=== PATIENT | female | born 1935 | race Caucasian/White ===

== ENCOUNTER 2018-09-25 09:30 | Inpatient (IN) ==
--- NOTE | 2018-09-25 10:09 | ED ---
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 They state that the patient was admitted last week to [facility] and diagnosed with Klebsiella ESBL UTI. She was discharged home 2 days ago on . According to the patient's and grandson, the patient's mental status has been significantly depressed since being discharged. Prior to being admitted the patient showed signs of dementia, however was talkative, able to ambulate, and had a normal routine. Since being discharged patient has not been talking, not been ambulating, not acting like her usual self. Patient is unable to provide any history given her mental status. She was apparently discharged home, and home health has been administering IV InVance for her UTI. She has not been vomiting. She has been coughing, however it has been nonproductive. Related Data Home Medications Medication Instructions Recorded Confirmed allopurinol 300 mg PO DAILY 09/25/18 09/25/18 aspirin [Aspir-81] 81 mg PO DAILY 09/25/18 09/25/18 carvedilol 12.5 mg PO BID 09/25/18 09/25/18 clopidogrel [Plavix] 75 mg PO DAILY 09/25/18 09/25/18 ferrous sulfate 325 mg PO DAILY 09/25/18 09/25/18 furosemide 40 mg PO DAILY 09/25/18 09/25/18 insulin glargine [Lantus U-100 15 unit SUBCUT DAILY 09/25/18 09/25/18 Insulin] levothyroxine 50 mcg PO DAILY 09/25/18 09/25/18 lovastatin 20 mg PO DAILY 09/25/18 09/25/18 potassium chloride 10 meq PO DAILY 09/25/18 09/25/18 sucralfate 1 g PO ACHS 09/25/18 09/25/18 Allergies Allergy/AdvReac Type Severity Reaction Status Date / Time No Known Allergies Allergy Verified 09/25/18 09:53 Review of Systems ROS: all other systems reviewed are negative [facility] Medical History Medical History Dementia (Acute) Diabetes (Acute) Gout (Acute) Hypercholesteremia (Acute) Hypertension (Acute) Hypothyroid (Acute) Medical history unknown (Acute) Surgical history unknown (Acute) Social History Social History Substance History: No History of Abuse Second Hand Smoke Exposure: No Smoking Status: Never smoker How Often Do You Have a Drink Containing Alcohol: 2 to 4 times a month Recent Travel in [facility] within the Last 8 Weeks: No Recent Out of Country Travel within the Last 8 Weeks: No Immunization History Tetanus Immunization: Unsure Exam Narrative Exam Narrative: GENERAL: Well-developed, elderly appearing female, awake, does not respond to verbal stimuli, withdraws to painful stimuli. SKIN: Focused skin assessment warm/dry. Stage II sacral decubitus ulcer with small amount of bleeding, no purulent drainage HEAD: Atraumatic. Normocephalic. EYES: Pupils equal and round. No scleral icterus. No injection or drainage. ENT: No nasal bleeding or discharge. Mucous membranes pink and dry. NECK: Trachea midline. No JVD. CARDIOVASCULAR: Regular rate and rhythm. No murmur appreciated. RESPIRATORY: No accessory muscle use. Coarse breath sounds bilaterally. GASTROINTESTINAL: Abdomen soft, non-tender, nondistended. MUSCULOSKELETAL: No obvious deformities. No clubbing. No cyanosis. Significant bilateral upper and lower extremity pitting edema. NEUROLOGICAL: Awake. Keeps eyes closed. Not responsive to verbal stimuli. Does not converse. Does not follow commands. Withdraws all extremities to painful stimuli. PSYCHIATRIC: Unable to assess. Course Initial Documented Vital Signs Temperature 96.5 F L 09/25/18 09:32 Pulse Rate 69 09/25/18 09:32 Respiratory Rate 18 09/25/18 09:32 Blood Pressure 115/56 L 09/25/18 09:32 Pulse Oximetry 94 L 09/25/18 09:32 Last Documented Vital Signs Temperature 94.7 F L 09/25/18 11:00 Pulse Rate 67 09/25/18 09:58 Respiratory Rate 18 09/25/18 09:58 Blood Pressure 148/83 H 09/25/18 09:58 Pulse Oximetry 97 09/25/18 10:15 Medical Decision Making MDM Narrative Medical decision making narrative: Patient has a rectal temp of 94.7 F. Warming blankets were applied. Labs reviewed. Patient has renal insufficiency. Unknown baseline. CMP also shows metabolic acidosis. UA suggestive of UTI. Lactic acid is 1.4. CT head: CONCLUSION:1. Atrophy and chronic small vessel ischemic change.2. No evidence of acute hemorrhage or infarction. Chest x-ray: CONCLUSION: 1. Cardiomegaly with streaky perihilar and bibasilar opacities of unknown chronicity. This may represent scarring.2. Both costophrenic angles appear mildly blunted which could indicate small effusions Several attempts were made to obtain hospital records from [facility]. Apparently they are attempting to fax this information to us. The patient's and grandson were made aware of all findings. Patient has metabolic acidosis, metabolic encephalopathy, renal insufficiency, and a UTI. Her last dose of Invanz was yesterday morning at 7 AM. Patient will be admitted for further treatment and evaluation. She will be given a dose of Invanz here. Awaiting culture and sensitivity reports from [facility]. Case discussed with hospitalist Dr. Rascon who will admit the patient to his service. Medical Screen Exam Complete: Yes Emergency Medical Condition: Yes Differential Diagnosis Differential Diagnosis: Sepsis, pneumonia, UTI, metabolic encephalopathy, intracranial abnormality, metabolic abnormality Lab Data Result diagrams: 09/25/18 10:18 09/25/18 10:18 Lab Results 09/25/18 09/25/18 09/25/18 Range/Units 10:18 10:18 10:18 WBC 10.5 (4.0-11.0) th/mm3 RBC 3.25 L (4.00-5.30) mil/mm3 Hgb 11.2 L (11.6-15.3) gm/dL Hct 34.0 L (35.0-46.0) % MCV 104.4 H (80.0-100.0) fL MCH 34.4 H (27.0-34.0) pg MCHC 32.9 (32.0-36.0) % RDW 17.4 H (11.6-17.2) % Plt Count 138 L (150-450) th/mm3 MPV 7.8 (7.0-11.0) fL Neut % (Auto) 63.6 (16.0-70.0) % Lymph % (Auto) 27.2 (9.0-44.0) % Ellis % (Auto) 5.2 (0.0-8.0) % Eos % (Auto) 3.1 (0.0-4.0) % Baso % (Auto) 0.9 (0.0-2.0) % Neut # (Auto) 6.7 (1.8-7.7) th/mm3 Lymph # (Auto) 2.9 (1.0-4.8) th/mm3 Ellis # (Auto) 0.5 (0.0-0.9) th/mm3 Eos # (Auto) 0.3 (0.0-0.4) th/mm3 Baso # (Auto) 0.1 (0.0-0.2) th/mm3 WBC Differential . Differential Comment Auto diff final PT (9.8-11.6) sec INR Ratio APTT (23.4-31.7) sec Sodium 138 (136-145) meq/L Potassium 5.6 H (3.5-5.1) meq/L Chloride 114 H (98-107) meq/L Carbon Dioxide 15.6 L (21.0-32.0) meq/L Anion Gap 8 (5-15) meq/L BUN 74 H (7-18) mg/dL Creatinine 2.28 H (0.50-1.00) mg/dL Estimated GFR 21 L (>89) mL/min Random Glucose 133 H (74-106) mg/dL Lactic Acid 1.4 (0.4-2.0) mmol/L Calcium 8.1 L (8.5-10.1) mg/dL Magnesium 2.3 (1.5-2.5) mg/dL Total Bilirubin 0.5 (0.2-1.0) mg/dL AST 35 (15-37) U/L ALT 14 (10-53) U/L Alkaline Phosphatase 152 H (45-117) U/L Ammonia (11-32) mcmol/L Total Creatine Kinase 118 (26-192) U/L CK-MB (CK-2) 1.3 (0.5-3.6) ng/mL Troponin I Less than 0.02 L (0.02-0.05) ng/mL B-Natriuretic Peptide (0-100) pg/mL Total Protein 5.6 L (6.4-8.2) g/dL Albumin 1.9 L (3.4-5.0) g/dL Lipase 61 L (73-393) U/L TSH 4.330 H (0.358-3.740) uIU/mL Urine Color (Yellw/Straw) Urine Clarity (Clear) Urine pH (5.0-8.5) Ur Specific [place] (1.002-1.035) Urine Protein (Neg-Trace) mg/dL Urine Glucose (UA) (Negative) mg/dL Urine Ketones (Negative) mg/dL Urine Occult Blood (Negative) Urine Nitrate (Negative) Urine Bilirubin (Negative) Urine Urobilinogen (Less than 2) mg/dL Ur Leukocyte Esterase (Negative) Urine RBC (0-3) /hpf Urine WBC (0-5) /hpf Urine WBC Clumps (None) Ur Squamous Epith Cells (0-5) /hpf Amorphous Sediment (None) /hpf Urine Bacteria (None) /hpf Hyaline Casts (0-3) /lpf Urine Mucus (Occasional) /lpf Micro UA Comment Ur Microscopic Review Urine Culture Comments 09/25/18 09/25/18 09/25/18 Range/Units 10:18 10:18 10:40 WBC (4.0-11.0) th/mm3 RBC (4.00-5.30) mil/mm3 Hgb (11.6-15.3) gm/dL Hct (35.0-46.0) % MCV (80.0-100.0) fL MCH (27.0-34.0) pg MCHC (32.0-36.0) % RDW (11.6-17.2) % Plt Count (150-450) th/mm3 MPV (7.0-11.0) fL Neut % (Auto) (16.0-70.0) % Lymph % (Auto) (9.0-44.0) % Ellis % (Auto) (0.0-8.0) % Eos % (Auto) (0.0-4.0) % Baso % (Auto) (0.0-2.0) % Neut # (Auto) (1.8-7.7) th/mm3 Lymph # (Auto) (1.0-4.8) th/mm3 Ellis # (Auto) (0.0-0.9) th/mm3 Eos # (Auto) (0.0-0.4) th/mm3 Baso # (Auto) (0.0-0.2) th/mm3 WBC Differential Differential Comment PT (9.8-11.6) sec INR Ratio APTT (23.4-31.7) sec Sodium (136-145) meq/L Potassium (3.5-5.1) meq/L Chloride (98-107) meq/L Carbon Dioxide (21.0-32.0) meq/L Anion Gap (5-15) meq/L BUN (7-18) mg/dL Creatinine (0.50-1.00) mg/dL Estimated GFR (>89) mL/min Random Glucose (74-106) mg/dL Lactic Acid (0.4-2.0) mmol/L Calcium (8.5-10.1) mg/dL Magnesium (1.5-2.5) mg/dL Total Bilirubin (0.2-1.0) mg/dL AST (15-37) U/L ALT (10-53) U/L Alkaline Phosphatase (45-117) U/L Ammonia 23 (11-32) mcmol/L Total Creatine Kinase (26-192) U/L CK-MB (CK-2) (0.5-3.6) ng/mL Troponin I (0.02-0.05) ng/mL B-Natriuretic Peptide 246 H (0-100) pg/mL Total Protein (6.4-8.2) g/dL Albumin (3.4-5.0) g/dL Lipase (73-393) U/L TSH (0.358-3.740) uIU/mL Urine Color Yellow (Yellw/Straw) Urine Clarity Cloudy H (Clear) Urine pH 5.0 (5.0-8.5) Ur Specific [place] 1.012 (1.002-1.035) Urine Protein 100 H (Neg-Trace) mg/dL Urine Glucose (UA) 50 (Negative) mg/dL Urine Ketones Negative (Negative) mg/dL Urine Occult Blood Moderate H (Negative) Urine Nitrate Negative (Negative) Urine Bilirubin Negative (Negative) Urine Urobilinogen Less than 2 (Less than 2) mg/dL Ur Leukocyte Esterase Moderate H (Negative) Urine RBC 30 H (0-3) /hpf Urine WBC 55 H (0-5) /hpf Urine WBC Clumps Few H (None) Ur Squamous Epith Cells 1 (0-5) /hpf Amorphous Sediment Many H (None) /hpf Urine Bacteria Moderate H (None) /hpf Hyaline Casts 19 (0-3) /lpf Urine Mucus Few H (Occasional) /lpf Micro UA Comment Cath-culture ind Ur Microscopic Review Not Reportable Urine Culture Comments Cath-cult indicated 09/25/18 Range/Units 11:20 WBC (4.0-11.0) th/mm3 RBC (4.00-5.30) mil/mm3 Hgb (11.6-15.3) gm/dL Hct (35.0-46.0) % MCV (80.0-100.0) fL MCH (27.0-34.0) pg MCHC (32.0-36.0) % RDW (11.6-17.2) % Plt Count (150-450) th/mm3 MPV (7.0-11.0) fL Neut % (Auto) (16.0-70.0) % Lymph % (Auto) (9.0-44.0) % Ellis % (Auto) (0.0-8.0) % Eos % (Auto) (0.0-4.0) % Baso % (Auto) (0.0-2.0) % Neut # (Auto) (1.8-7.7) th/mm3 Lymph # (Auto) (1.0-4.8) th/mm3 Ellis # (Auto) (0.0-0.9) th/mm3 Eos # (Auto) (0.0-0.4) th/mm3 Baso # (Auto) (0.0-0.2) th/mm3 WBC Differential Differential Comment PT 12.4 H (9.8-11.6) sec INR 1.2 Ratio APTT 40.6 H (23.4-31.7) sec Sodium (136-145) meq/L Potassium (3.5-5.1) meq/L Chloride (98-107) meq/L Carbon Dioxide (21.0-32.0) meq/L Anion Gap (5-15) meq/L BUN (7-18) mg/dL Creatinine (0.50-1.00) mg/dL Estimated GFR (>89) mL/min Random Glucose (74-106) mg/dL Lactic Acid (0.4-2.0) mmol/L Calcium (8.5-10.1) mg/dL Magnesium (1.5-2.5) mg/dL Total Bilirubin (0.2-1.0) mg/dL AST (15-37) U/L ALT (10-53) U/L Alkaline Phosphatase (45-117) U/L Ammonia (11-32) mcmol/L Total Creatine Kinase (26-192) U/L CK-MB (CK-2) (0.5-3.6) ng/mL Troponin I (0.02-0.05) ng/mL B-Natriuretic Peptide (0-100) pg/mL Total Protein (6.4-8.2) g/dL Albumin (3.4-5.0) g/dL Lipase (73-393) U/L TSH (0.358-3.740) uIU/mL Urine Color (Yellw/Straw) Urine Clarity (Clear) Urine pH (5.0-8.5) Ur Specific [place] (1.002-1.035) Urine Protein (Neg-Trace) mg/dL Urine Glucose (UA) (Negative) mg/dL Urine Ketones (Negative) mg/dL Urine Occult Blood (Negative) Urine Nitrate (Negative) Urine Bilirubin (Negative) Urine Urobilinogen (Less than 2) mg/dL Ur Leukocyte Esterase (Negative) Urine RBC (0-3) /hpf Urine WBC (0-5) /hpf Urine WBC Clumps (None) Ur Squamous Epith Cells (0-5) /hpf Amorphous Sediment (None) /hpf Urine Bacteria (None) /hpf Hyaline Casts (0-3) /lpf Urine Mucus (Occasional) /lpf Micro UA Comment Ur Microscopic Review Urine Culture Comments Imaging Data Radiologist's impression: Chest X-Ray 09/25/18 10:02 CONCLUSION: 1. Cardiomegaly with streaky perihilar and bibasilar opacities of unknown chronicity. This may represent scarring. 2. Both costophrenic angles appear mildly blunted which could indicate small effusions. Head CT 09/25/18 10:02 CONCLUSION: 1. Atrophy and chronic small vessel ischemic change. 2. No evidence of acute hemorrhage or infarction. . Discharge Plan Discharge Disposition Patient Disposition: ED Admit(ED Internal Use Only) Discharge Condition Condition: Stable Discharge Details Diagnosis: Metabolic encephalopathy, Renal insufficiency, UTI (urinary tract infection) Physicians Team ED Provider: Tim Fuller Rxs /Orders / Referrals /Forms Prescriptions: No Action furosemide 40 mg Tablet 40 mg PO DAILY RF: 0 carvedilol 12.5 mg Tablet 12.5 mg PO BID RF: 0 insulin glargine [Lantus U-100 Insulin] 100 unit/mL Solution 15 unit SUBCUT DAILY RF: 0 sucralfate 1 gram Tablet 1 g PO ACHS RF: 0 potassium chloride 10 mEq Tablet Extended Release 10 meq PO DAILY RF: 0 clopidogrel [Plavix] 75 mg Tablet 75 mg PO DAILY RF: 0 aspirin [Aspir-81] 81 mg Tablet,Delayed Release (Dr/Ec) 81 mg PO DAILY RF: 0 levothyroxine 50 mcg Tablet 50 mcg PO DAILY RF: 0 ferrous sulfate 325 mg (65 mg iron) Tablet 325 mg PO DAILY RF: 0 allopurinol 300 mg Tablet 300 mg PO DAILY RF: 0 lovastatin 20 mg Tablet 20 mg PO DAILY RF: 0 Status ED Status: With Doctor
[2018-09-25 10:39] LABS: Baso # (Auto) 0.1 th/mm3 (0.0-0.2); Baso % (Auto) 0.9 % (0.0-2.0); Eos # (Auto) 0.3 th/mm3 (0.0-0.4); Eos % (Auto) 3.1 % (0.0-4.0); Hemoglobin 11.2 gm/dL (11.6-15.3); Lymph # (Auto) 2.9 th/mm3 (1.0-4.8); Lymph % (Auto) 27.2 % (9.0-44.0); Mean Corpuscular HGB Conc 32.9 % (32.0-36.0); Mean Corpuscular Hemoglobin 34.4 pg (27.0-34.0); Mean Corpuscular Volume 104.4 fL (80.0-100.0); Mean Platelet Volume 7.8 fL (7.0-11.0); Mono # (Auto) 0.5 th/mm3 (0.0-0.9); Mono % (Auto) 5.2 % (0.0-8.0); Neut # (Auto) 6.7 th/mm3 (1.8-7.7); Neut % (Auto) 63.6 % (16.0-70.0); Platelet Count 138 th/mm3 (150-450); Red Blood Count 3.25 mil/mm3 (4.00-5.30); Red Cell Distribution Width 17.4 % (11.6-17.2); White Blood Count 10.5 th/mm3 (4.0-11.0)
[2018-09-25 11:00] LABS: Albumin 1.9 g/dL (3.4-5.0); Anion Gap 8 meq/L (5-15); Aspartate Aminotransferase 35 U/L (15-37); Blood Urea Nitrogen 74 mg/dL (7-18); Calcium 8.1 mg/dL (8.5-10.1); Carbon Dioxide 15.6 meq/L (21.0-32.0); Chloride 114 meq/L (98-107); Glomerular Filtration Rate 21 mL/min (>89); Glucose,Random 133 mg/dL (74-106); Lipase 61 U/L (73-393); Magnesium 2.3 mg/dL (1.5-2.5); Potassium 5.6 meq/L (3.5-5.1); Sodium 138 meq/L (136-145)
[2018-09-25 11:05] LABS: Amorphous Sediment,Urine Many /hpf; Bacteria,Urine Moderate /hpf; Bilirubin,Urine Negative (Negative); Clarity,Urine Cloudy (Clear); Color,Urine Yellow (Yellw/Straw); Glucose,Urine (UA) 50 mg/dL (Negative); Hyaline Casts,Urine 19 /lpf (0-3); Leukocyte Esterase,Urine Moderate (Negative); Mucus,Urine Few /lpf (Occasional); Nitrite,Urine Negative (Negative); Specific Gravity,Urine 1.012 (1.002-1.035); Squamous Epithelial Cell,Urine 1 /hpf (0-5)
[2018-09-25 11:09] LABS: Alanine Aminotransferase 14 U/L (10-53); Alkaline Phosphatase 152 U/L (45-117); Creatine Kinase 118 U/L (26-192); Total Protein 5.6 g/dL (6.4-8.2)
--- NOTE | 2018-09-25 11:13 | CT ---
EXAM DATE: 09/25/2018 11:10 AM EST AGE/SEX: 83 years / Female INDICATIONS: Altered mental status. CLINICAL DATA: This is the patient's initial encounter. Patient reports that signs and symptoms have been present for 1 day and indicates a pain score of 0/10. MEDICAL/SURGICAL HISTORY: Dementia. Diabetes. Hypertension. None. RADIATION DOSE: 56.77 CTDI (mGy) COMPARISON: No prior exams available for comparison. TECHNIQUE: CT of the head without contrast. Using automated exposure control and adjustment of the mA and/or kV according to patient size, radiation dose was kept as low as reasonably achievable to ob tain optimal diagnostic quality images. DICOM format image data is available electronically for revi ew and comparison. FINDINGS: Cerebrum: The ventricles are normal for age with diffuse mild to moderate atrophic change. Extensive chronic small vessel ischemic changes are also noted. No evidence of midline shift, mass lesion, hem orrhage or acute infarction. No extraaxial fluid collections are seen. Posterior Fossa: The cerebellum and brainstem are intact. The 4th ventricle is midline. The cerebe llopontine angle is unremarkable. Extracranial: The visualized portion of the orbits is intact. There is opacification of several righ t ethmoidal air cells. Skull: The calvaria is intact. No evidence of skull fracture. CONCLUSION: 1. Atrophy and chronic small vessel ischemic change. 2. No evidence of acute hemorrhage or infarction. . Electronically signed by: Rivera Hardin MD 09/25/2018 11:12 AM EST
[2018-09-25] MEDS ORDERED: Sod Chloride 0.9% Inj 1,000 ML IV.CONT SCH (11:15)
[2018-09-25 11:37] LABS: Creatine Kinase MB 1.3 ng/mL (0.5-3.6)
[2018-09-25] MEDS ORDERED: Sodium Chlor 0.9% Inj 500 ML IV.SIG SCH (12:00)
[2018-09-25 12:13] LABS: Activated Partial Thrombo Time 40.6 sec (23.4-31.7); INR 1.2 Ratio; Prothrombin Time 12.4 sec (9.8-11.6)
--- NOTE | 2018-09-25 12:21 | XR ---
EXAM DATE: 09/25/2018 12:13 PM EST AGE/SEX: 83 years / Female INDICATIONS: Fever, congestion. Altered mental status. CLINICAL DATA: This is the patient's initial encounter. Patient reports that signs and symptoms have been present for 1 day and indicates a pain score of Nonresponsive. MEDICAL/SURGICAL HISTORY: Non-responsive. Non-responsive. COMPARISON: No prior exams available for comparison. FINDINGS: A single AP erect portable view of the chest was obtained and demonstrates a right subclavian AV sequ ential transvenous pacer placed. There is mild cardiomegaly and atherosclerotic changes in the aorta with dilatation calcification. Streaky perihilar and bibasilar opacities are present. Both costophren ic angles appear mildly blunted. Scoliosis is noted in the thoracic spine. There are degenerative paulino nges in both shoulders. CONCLUSION: 1. Cardiomegaly with streaky perihilar and bibasilar opacities of unknown chronicity. This may repre sent scarring. 2. Both costophrenic angles appear mildly blunted which could indicate small effusions. Electronically signed by: Rivera Hardin MD 09/25/2018 12:20 PM EST
[2018-09-25] MEDS: Carvedilol 12.5 MG Tablet PO SCH ×2 (14:51→21:00)
[2018-09-25] MEDS: amLODIPine 5 MG Tablet PO SCH (14:52)
[2018-09-25] MEDS ORDERED: hydrALAZINE HCl Inj 20 MG/ML Vial IV.PUSH PRN (14:58)
[2018-09-25] MEDS ORDERED: hydrALAZINE HCl Inj 20 MG/ML Vial IV.PUSH ONE (15:00)
--- NOTE | 2018-09-25 18:42 | P.HPIM ---
History of Present Illness Primary Care Physician: Rylan Mcknight History of Present Illness: This patient is an 83-year-old female with a diagnosis of hypertension, CHF unknown ejection fraction, hypothyroidism, insulin-dependent diabetes. The patient was recently discharged from [facility] with ESBL Klebsiella UTI as per some documentation that was provided by the patient's . During the hospitalization the patient was admitted for acute encephalopathy which was thought to be due to to the UTI. The patient's provided a prescription that was given to the patient for Invanz that the patient was to receive at home for her urinary tract infection. The patient will receive 1 day of the IV antibiotic while at home and her symptoms of encephalopathy and weakness got worse and she was brought into the emergency department for evaluation. She denies any fevers or chills. Due to the patient's worsening mental status she was brought into the ED. She has also been having a cough that is nonproductive as per the patient's . In the emergency department a Polanco catheter was placed which shows cloudy urine draining. Past medical history hypertension, CHF unknown ejection fraction, insulin- dependent diabetes, hypothyroidism Past surgical history status post pacemaker placement Social history the patient is a history of tobacco smoking, denies any history of alcohol use or drug use. Family history noncontributory Inpatient Certification: I certify that the inpatient services were ordered in accordance with Medicare regulations governing the order. This includes certification that hospital inpatient services are reasonable and necessary and in the case of services not specified as inpatient-only under 42 CFR 419.22(n), that they are appropriately provided as inpatient services in accordance to with the 2-midnight benchmark under 43 CFR 412.3(e) Estimated Total Length of Stay (Days): 3 Plans for Post Hospital Care: Home Review of Systems All other systems reviewed negative except as stated in HPI PMFSH - History History Provided By: Family Member - Medical History Medical History: Medical History (Last Updated 09/25/18 @ 09:58 by Aileen Richter) Dementia Diabetes Gout Hypercholesteremia Hypertension Hypothyroid Medical history unknown Surgical history unknown - Tobacco History Second Hand Smoke Exposure: No Smoking Status: Never smoker - Alcohol History How Often Do You Have a Drink Containing Alcohol: 2 to 4 times a month - Substance Use History Substance History: No History of Abuse - Travel History Recent Travel in the [place] Within the Last 8 Weeks: No Recent Travel Out of the Country Within the Last 8 Weeks: No - Immunization History Tetanus Immunization: Unsure Medications and Allergies Active Medications: Active Medications Amlodipine Besylate (Norvasc) 5 mg PO DAILY [facility] Last Admin: 09/25/18 14:52 Dose: Not Given Aspirin (Aspirin Chew) 81 mg PO DAILY [facility] Atorvastatin Calcium (Lipitor) 20 mg PO HS [facility] Carvedilol (Coreg) 12.5 mg PO BID [facility] Last Admin: 09/25/18 14:51 Dose: Not Given Clopidogrel Bisulfate (Plavix) 75 mg PO DAILY [facility] Hydralazine HCl (Apresoline Inj) 10 mg IV.PUSH Q4H PRN PRN Reason: BLOOD PRESSURE MANAGEMENT Sodium Chloride (Ns Inj) 1,000 mls @ 125 mls/hr IV.CONT .Q8H [facility] Stop: 09/25/18 19:14 Last Infusion: 09/25/18 17:39 Dose: Infused Ertapenem 500 mg/ Sodium (Chloride) 100 mls @ 200 mls/hr IV.SIG Q24H [facility] Levothyroxine Sodium (Synthroid) 50 mcg PO DAILY@0600 [facility] Allergies Allergy/AdvReac Type Severity Reaction Status Date / Time No Known Allergies Allergy Verified 09/25/18 09:53 Home Medications Medication Instructions Recorded Confirmed Type allopurinol 300 mg PO DAILY 09/25/18 09/25/18 History aspirin [Aspir-81] 81 mg PO DAILY 09/25/18 09/25/18 History carvedilol 12.5 mg PO BID 09/25/18 09/25/18 History clopidogrel [Plavix] 75 mg PO DAILY 09/25/18 09/25/18 History ferrous sulfate 325 mg PO DAILY 09/25/18 09/25/18 History furosemide 40 mg PO DAILY 09/25/18 09/25/18 History insulin glargine [Lantus U-100 15 unit SUBCUT DAILY 09/25/18 09/25/18 History Insulin] levothyroxine 50 mcg PO DAILY 09/25/18 09/25/18 History lovastatin 20 mg PO DAILY 09/25/18 09/25/18 History potassium chloride 10 meq PO DAILY 09/25/18 09/25/18 History sucralfate 1 g PO ACHS 09/25/18 09/25/18 History Exam Vital signs: Vital Signs 09/25/18 09:32 09/25/18 09:58 09/25/18 10:15 Temperature 96.5 F L Pulse Rate 69 67 Respiratory Rate 18 18 Blood Pressure 115/56 L 148/83 H Pulse Oximetry 94 L 94 L 97 09/25/18 11:00 09/25/18 13:59 09/25/18 15:51 Temperature 94.7 F L Pulse Rate 71 68 Respiratory Rate 14 17 Blood Pressure 182/76 H 110/48 L Pulse Oximetry 97 97 09/25/18 17:36 Temperature Pulse Rate 74 Respiratory Rate 14 Blood Pressure 109/51 L Pulse Oximetry 98 Intake & Output 09/24/18 09/25/18 09/25/18 18:59 06:59 18:59 Intake Total 1600 / 1600 Balance 1600 / 1600 Weight 77.111 kg Intake: IV 1600 / 1600 NS Inj 1,000 ML @ 125 mls/hr IV 1000 / 1000 .CONT .Q8H [facility] Rx#:[id number] INVanz Inj 1,000 MG In NS Inj 100 / 100 100 ML @ 200 mls/hr IV.SIG ONCE ONE Rx#:[id number] NS Inj 500 ML @ 1000 mls/hr IV. 500 / 500 SIG BOLUS [facility] Rx#:[id number] Narrative: General patient is lethargic. Opens eyes to verbal questions. HEENT atraumatic, normocephalic. Extraocular movements are intact. Cardiovascular S1-S2 audible, RRR, no murmurs rubs or gallops Respiratory bibasilar crackles. Abdomen soft, nontender, nondistended, normal bowel sounds Extremities 2+ pitting edema bilateral lower extremity up to the shins. Bilateral upper extremity pitting edema also noted. Neuro patient is currently alert and oriented x2 to person and place. She is not following commands completely. Results - Labs CBC & Chem 7: 09/25/18 10:18 09/25/18 10:18 Labs: Short CBC 09/25/18 Range/Units 10:18 WBC 10.5 (4.0-11.0) th/mm3 Hgb 11.2 L (11.6-15.3) gm/dL Hct 34.0 L (35.0-46.0) % Plt Count 138 L (150-450) th/mm3 BMP 09/25/18 10:18 Sodium 138 Potassium 5.6 H Chloride 114 H Carbon Dioxide 15.6 L BUN 74 H Creatinine 2.28 H Calcium 8.1 L Cardiac Enzymes 09/25/18 Range/Units 10:18 Total Creatine Kinase 118 (26-192) U/L CK-MB (CK-2) 1.3 (0.5-3.6) ng/mL Troponin I Less than 0.02 L (0.02-0.05) ng/mL Liver Function 09/25/18 Range/Units 10:18 Total Bilirubin 0.5 (0.2-1.0) mg/dL AST 35 (15-37) U/L ALT 14 (10-53) U/L Alkaline Phosphatase 152 H (45-117) U/L Albumin 1.9 L (3.4-5.0) g/dL Urine 09/25/18 Range/Units 10:40 Urine Color Yellow (Yellw/Straw) Urine Clarity Cloudy H (Clear) Urine pH 5.0 (5.0-8.5) Ur Specific [place] 1.012 (1.002-1.035) Urine Protein 100 H (Neg-Trace) mg/dL Urine Glucose (UA) 50 (Negative) mg/dL - Imaging Impressions Chest X-Ray 09/25/18 10:02 CONCLUSION: 1. Cardiomegaly with streaky perihilar and bibasilar opacities of unknown chronicity. This may represent scarring. 2. Both costophrenic angles appear mildly blunted which could indicate small effusions. Head CT 09/25/18 10:02 CONCLUSION: 1. Atrophy and chronic small vessel ischemic change. 2. No evidence of acute hemorrhage or infarction. . Caprini VTE Risk Assessment Caprini VTE Risk Assessment: Moderate/High Risk (score >= 2) (Patient thrombocytopenic, continue with SCDs) Caprini Risk Assessment Model: Point Value = 1 Point Value = 2 Point Value = 3 Point Value = 5 Age 41-60 Minor surgery BMI > 25 kg/m2 Swollen legs Varicose veins or History of unexplained or recurrent spontaneous Oral contraceptives or hormone replacement Sepsis (< 1 month) Serious lung disease, including pneumonia (< 1 month) Abnormal pulmonary function Acute myocardial infarction Congestive heart failure (< 1 month) History of inflammatory bowel disease Medical patient at bed rest Age 61-74 Arthroscopic surgery Major open surgery (> 45 min) Laparoscopic surgery (> 45 min) Malignancy Confined to bed (> 72 hours) Immobilizing plaster cast Central venous access Age >= 75 History of VTE Family history of VTE Factor V Leiden Prothrombin [id number] Lupus anticoagulant Anticardiolipin antibodies Elevated serum homocysteine Heparin-induced thrombocytopenia Other congenital or acquired thrombophilia Stroke (< 1 month) Elective arthroplasty Hip, pelvis, or leg fracture Acute spinal cord injury (< 1 month) Prophylaxis Regimen: Total Risk Factor Score Risk Level Prophylaxis Regimen 0-1 Low Early ambulation 2 Moderate Order ONE of the following: *Sequential Compression Device (SCD) *Heparin 5000 units SQ BID 3-4 Higher Order ONE of the following medications: *Heparin 5000 units SQ TID *Enoxaparin/Lovenox 40 mg SQ daily (WT < 150 kg, CrCl > 30 mL/min) *Enoxaparin/Lovenox 30 mg SQ daily (WT < 150 kg, CrCl > 10-29 mL/min) *Enoxaparin/Lovenox 30 mg SQ BID (WT < 150 kg, CrCl > 30 mL/min) AND/OR *Sequential Compression Device (SCD) 5 or more Highest Order ONE of the following medications: *Heparin 5000 units SQ TID (Preferred with Epidurals) *Enoxaparin/Lovenox 40 mg SQ daily (WT < 150 kg, CrCl > 30 mL/min) *Enoxaparin/Lovenox 30 mg SQ daily (WT < 150 kg, CrCl > 10-29 mL/min) *Enoxaparin/Lovenox 30 mg SQ BID (WT < 150 kg, CrCl > 30 mL/min) AND *Sequential Compression Device (SCD) Assessment and Plan - Plan This patient is an 83-year-old female with a diagnosis of hypertension, CHF unknown ejection fraction, hypothyroidism, insulin-dependent diabetes. The patient was recently discharged from [facility] with ESBL Klebsiella UTI as per some documentation that was provided by the patient's . During the hospitalization the patient was admitted for acute encephalopathy which was thought to be due to to the UTI. The patient's provided a prescription that was given to the patient for Invanz that the patient was to receive at home for her urinary tract infection. The patient will receive 1 day of the IV antibiotic while at home and her symptoms of encephalopathy and weakness got worse and she was brought into the emergency department for evaluation. She denies any fevers or chills. 1. Acute encephalopathy likely secondary to urinary tract infection 2. Sepsis secondary to #1 The patient presented with a low temperature, recently she was treated for ESBL Klebsiella UTI. Urinalysis is positive, Polanco catheter shows cloudy urine. This is likely the source of the patient's current infection. Invanz will be started, records from [facility] are currently pending. The patient received IV fluids in the emergency department however on my physical examination the patient has significant bilateral lower extremity pitting edema well as bilateral upper pitting edema. The patient does have an albumin of 1.9 which could be contributing to the patient's edema. IV fluids will not be continued for tonight. The patient is now able to answer some of my questions however still appears drowsy. She is alert and oriented x2 to person and place. Blood cultures have been drawn and will be followed up. Follow-up urine culture. 3. Acute kidney injury likely secondary to sepsis 4. Hyperkalemia likely secondary to acute kidney injury 5. Non-anion gap metabolic acidosis likely secondary to acute kidney injury Patient has an elevated serum creatinine of 2.28. Baseline serum creatinine unknown. We will continue to monitor the patient's serum creatinine and kidney function. If no significant improvement by tomorrow nephrology will be consulted. Repeat potassium level will be ordered for tonight. Patient failed swallow evaluation at bedside. We will give gentle fluid hydration for today. Official swallow evaluation pending. 6. Sacral ulcer Patient is a small sacral ulcer. Wound care nurse will be consulted to evaluate the patient. 7. Hypertension Patient has systolic blood pressure in the 180s in the emergency department. She failed bedside swallow evaluation. Hydralazine IV given as needed. We will continue monitor the patient's blood pressure and adjust them as needed. 8. Cough The patient was having a cough in the emergency department. Chest x-ray was evaluated and shows small bilateral pleural effusions on my evaluation. There is no sputum production. Given the patient's significant bilateral upper and lower extremity edema it appears this might be from fluid. 2D echocardiogram ordered. If the patient spikes fevers we will consider adjusting her antibiotics. SCDs for DVT prophylaxis.
--- NOTE | 2018-09-25 19:26 | MB ---
cc: Clint Vanegas MD DATE: 09/25/2018 REQUESTING PHYSICIAN: Dr. Rascon REASON: ESBL Klebsiella recently. The patient admitted with acute encephalopathy. HISTORY OF PRESENT ILLNESS: This is an 83-year-old white female who has history of diabetes mellitus. The patient was recently hospitalized at [facility] and treated for sepsis and UTI. The urine culture at the time grew ESBL Klebsiella. She was discharged on intravenous Invanz. The patient was discharged on 09/23/2018 and was to continue treatment for 7 days of the Invanz. She was brought for evaluation of altered mental status and worsening bilateral lower extremity edema and also edema of the upper extremities. The is at bedside. He tells me that she has more fluid than usual in the lower extremities and also upper extremities. The patient has history of congestive heart failure. She underwent placement of a pacemaker 2 years ago. It is reported that she had become unable to take care of her daily activities prior to admission to the hospital in [place]. The patient is currently unresponsive. Her white blood cell count is 10.2. Temperature is 94.7. She has a Polanco catheter in place. Urinalysis showed 55 white cells and the urine is cloudy. She also has renal insufficiency with estimated GFR of 21. She is reported to have had acute kidney disease when she was in the hospital in [facility]. PAST MEDICAL HISTORY: Diabetes mellitus, GERD, hypertension, hypothyroidism, dementia. ALLERGIES: NO KNOWN DRUG ALLERGIES. MEDICATIONS: 1. Norvasc. 2. Aspirin. 3. Lipitor. 4. Coreg. 5. Plavix. 6. Ertapenem. 7. Synthroid. SOCIAL HISTORY: The patient is . No tobacco use. Alcohol use, approximately 2-4 times a month. No illicit drugs. FAMILY HISTORY: Unable to obtain. REVIEW OF SYSTEMS: Unable to obtain. PHYSICAL EXAMINATION: GENERAL: This is a slender female who is currently unresponsive. VITAL SIGNS: Includes temperature 94.7, BP 110/48, respirations 17, heart rate 68. HEENT: The head is atraumatic. Extraocular movements cannot be fully assessed as the patient cannot cooperate. The oropharynx was not adequately visualized. Buccal mucosa is moist. NECK: Supple without adenopathy or swelling. LUNGS: Slight rhonchi at both bases. HEART: Regular S1 and S2 with a slight systolic murmur at the left sternal border. ABDOMEN: Bowel sounds diminished. Soft, no tenderness appreciated. RECTAL: Not performed. EXTREMITIES: No clubbing or cyanosis. 3+ pitting edema of the lower extremities and 2+ pitting edema in the upper extremities. The edema extends to the thighs and hips. SKIN: No diffuse rash. PSYCHIATRIC: Unable to assess. LABORATORY DATA: WBC 10.5, platelets 138, 63% neutrophils, 27% lymphocytes, 5% monocytes, 3% eosinophils, hemoglobin 11.2, creatinine 2.28, BUN 74, estimated GFR 21. Lactic acid 1.4. Blood cultures pending. IMPRESSION: 1. Urinary tract infection. 2. Probable sepsis. 3. Acute kidney disease. 4. Encephalopathy, likely related to infection and compounded by dementia. RECOMMENDATIONS: 1. Continue ertapenem. 2. Monitor urine culture. 3. Monitor blood culture. 4. Monitor clinical status. The patient probably has ongoing urinary infection with Klebsiella. However, it is possible she could be infected with a different organism. Thank you for this consultation. The patient's progress will be monitored and further recommendations will be given upon followup if necessary. Clint Vanegas MD FFD/ct , 05:18 PM , 05:30 PM
--- NOTE | 2018-09-25 20:36 | ECHRPT ---
Indication: CVA/TIA CONCLUSIONS Normal left ventricular size. Mild concentric left ventricular hypertrophy. The left ventricular systolic function is normal with an estimated ejection fraction of 55%. A pacemaker wire is noted. [id number] mitral valve regurgitation. Aortic sclerosis with mild aortic valve stenosis. There is mild tricuspid valve regurgitation. The estimated pulmonary arterial pressure is 61 mmHg. BP: / HR: Rhythm: Other MEASUREMENTS (Male / Female) Normal Values Technical Quality:Fair, Technically difficult stud y 2D ECHO LV Diastolic Diameter PLAX 3.9 cm 4.2 - 5.9 / 3.9 - 5.3 cm LV Systolic Diameter PLAX 3.1 cm IVS Diastolic Thickness 1.4 cm 0.6 - 1.0 / 0.6 - 0.9 cm LVPW Diastolic Thickness 1.1 cm 0.6 - 1.0 / 0.6 - 0.9 cm LV Relative Wall Thickness 0.6 RV Internal Dim ED PLAX 3.8 cm LVOT Diameter 1.8 cm Aortic Root Diameter 2.8 cm LV Ejection Fraction MOD 4C 48.0 % LV Ejection Fraction 4C AL 46.5 % DOPPLER AV Peak Velocity 276.0 cm/s AV Peak Gradient 30.5 mmHg AV Mean Gradient 19.0 mmHg AV Velocity Time Integral 73.1 cm LVOT Peak Velocity 83.3 cm/s LVOT Peak Gradient 2.8 mmHg LVOT Velocity Time Integral 22.9 cm AV Area Cont Eq vti 0.8 cm AV Area Cont Eq pk 0.8 cm Mitral E Point Velocity 80.5 cm/s Mitral A Point Velocity 115.0 cm/s Mitral E to A Ratio 0.7 LV E' Lateral Velocity 7.6 cm/s Mitral E to LV E' Lateral Ratio 10.6 LV E' Septal Velocity 8.5 cm/s Mitral E to LV E' Septal Ratio 9.5 TR Peak Velocity 356.0 cm/s TR Peak Gradient 50.7 mmHg Right Atrial Pressure 10.0 mmHg Pulmonary Artery Systolic Pressu 60.7 mmHg Right Ventricular Systolic Press 60.7 mmHg PV Peak Velocity 78.0 cm/s PV Peak Gradient 2.4 mmHg FINDINGS LEFT VENTRICLE Normal left ventricular size. Mild concentric left ventricular hypertrophy. The left ventricular systolic function is normal with an estimated ejection fraction of 55%. RIGHT VENTRICLE A pacemaker wire is noted. LEFT ATRIUM The left atrial size is normal. RIGHT ATRIUM The right atrial size is normal. ATRIAL SEPTUM Normal atrial septal thickness without atrial level shunting by limited color doppler interrogation. AORTA The aortic root and proximal ascending aorta are normal in size on limited imaging. MITRAL VALVE [id number] mitral valve regurgitation. AORTIC VALVE Mild aortic valve stenosis. TRICUSPID VALVE There is mild tricuspid valve regurgitation. The estimated pulmonary arterial pressure is 61 mmHg. PULMONARY VALVE No pulmonary valve regurgitation or stenosis. VESSELS The inferior vena cava was not well visualized. PERICARDIUM No pericardial effusion. Jennifer Mckeon MD, FACC (Electronically Signed) Final Date:25 September 2018 20:35
[2018-09-25 20:43] LABS: Carbon Dioxide 16.1 meq/L (21.0-32.0)
[2018-09-25 20:52] LABS: Potassium 4.4 meq/L (3.5-5.1)
[2018-09-25] MEDS ORDERED: Sodium Chloride 0.9% 2 ML Flush PRN IV.FLUSH (22:41)
[2018-09-25] MEDS: Sod Chloride 0.9% Inj 1,000 ML IV.SIG SCH (23:20)
[2018-09-26] MEDS: Levothyroxine 50 MCG Tablet PO SCH (06:00)
[2018-09-26 07:14] LABS: Baso # (Auto) 0.1 th/mm3 (0.0-0.2); Baso % (Auto) 1.4 % (0.0-2.0); Eos # (Auto) 0.3 th/mm3 (0.0-0.4); Eos % (Auto) 3.2 % (0.0-4.0); Hemoglobin 9.8 gm/dL (11.6-15.3); Lymph # (Auto) 2.2 th/mm3 (1.0-4.8); Lymph % (Auto) 22.4 % (9.0-44.0); Mean Corpuscular HGB Conc 33.8 % (32.0-36.0); Mean Corpuscular Hemoglobin 34.8 pg (27.0-34.0); Mean Platelet Volume 7.5 fL (7.0-11.0); Mono # (Auto) 0.5 th/mm3 (0.0-0.9); Mono % (Auto) 5.5 % (0.0-8.0); Neut # (Auto) 6.5 th/mm3 (1.8-7.7); Neut % (Auto) 67.5 % (16.0-70.0); Platelet Count 118 th/mm3 (150-450); Red Blood Count 2.82 mil/mm3 (4.00-5.30); White Blood Count 9.6 th/mm3 (4.0-11.0)
[2018-09-26 07:47] LABS: Calcium 7.9 mg/dL (8.5-10.1); Carbon Dioxide 16.3 meq/L (21.0-32.0); Magnesium 2.2 mg/dL (1.5-2.5); Potassium 4.1 meq/L (3.5-5.1)
[2018-09-26] MEDS: Sodium Chloride 0.9% 2 ML Flush BID IV.FLUSH SCH (12:28)
[2018-09-26] MEDS: Sod Chloride 0.9% Inj 1,000 ML IV.SIG SCH (12:29)
--- NOTE | 2018-09-26 12:39 | P.PNID ---
Subjective Remarks: Patient is very lethargic. RN reports that she was alert earlier and she knew her name and date of but did not know where she is. at bedside. No fever. White blood cell count down to normal. Urine culture pending. No growth in 24 hours. This is an 83-year-old white female who has history of diabetes mellitus. The patient was recently hospitalized at [facility] and treated for sepsis and UTI. The urine culture at the time grew ESBL Klebsiella. She was discharged on intravenous Invanz. The patient was discharged on 09/23/2018 and was to continue treatment for 7 days of the Invanz. She was brought for evaluation of altered mental status and worsening bilateral lower extremity edema and also edema of the upper extremities. The is at bedside. He tells me that she has more fluid than usual in the lower extremities and also upper extremities. The patient has history of congestive heart failure. She underwent placement of a pacemaker 2 years ago. It is reported that she had become unable to take care of her daily activities prior to admission to the hospital in [place]. The patient is currently unresponsive. Her white blood cell count is 10.2. Temperature is 94.7. She has a Polanco catheter in place. Urinalysis showed 55 white cells and the urine is cloudy. She also has renal insufficiency with estimated GFR of 21. She is reported to have had acute kidney disease when she was in the hospital in [facility]. Past Medical History: PAST MEDICAL HISTORY: Diabetes mellitus, GERD, hypertension, hypothyroidism, dementia. Allergies/Adverse Reactions: Allergies No Known Allergies Allergy (Verified 09/25/18 09:53) Objective Vital Signs 09/25/18 13:59 09/25/18 15:51 09/25/18 17:36 Temperature Pulse Rate 71 68 74 Respiratory Rate 14 17 14 Blood Pressure 182/76 H 110/48 L 109/51 L Pulse Oximetry 97 97 98 09/25/18 20:00 09/25/18 21:00 09/25/18 22:00 Temperature 96 F L Pulse Rate 73 76 76 Respiratory Rate 16 Blood Pressure 119/53 L Pulse Oximetry 94 L 09/25/18 23:00 09/26/18 00:00 09/26/18 01:00 Temperature 96.3 F L Pulse Rate 76 81 80 Respiratory Rate 16 Blood Pressure 104/47 L Pulse Oximetry 97 09/26/18 02:00 09/26/18 03:00 09/26/18 04:00 Temperature 97.4 F L Pulse Rate 78 80 81 Respiratory Rate 16 Blood Pressure 105/50 L Pulse Oximetry 95 09/26/18 05:00 09/26/18 06:00 09/26/18 07:00 Temperature Pulse Rate 80 84 85 Respiratory Rate Blood Pressure Pulse Oximetry 09/26/18 08:00 09/26/18 09:00 09/26/18 10:00 Temperature 97.5 F L Pulse Rate 86 86 86 Respiratory Rate 20 Blood Pressure 115/57 L Pulse Oximetry 94 L 09/26/18 11:00 09/26/18 12:00 Temperature 97.2 F L Pulse Rate 83 84 Respiratory Rate 20 Blood Pressure 135/54 L Pulse Oximetry 93 L Intake & Output 09/25/18 09/26/18 09/26/18 18:59 06:59 18:59 Intake Total 1600 / 1600 1000 / 1000 Output Total 400 / 400 Balance 1600 / 1600 -400 / -400 1000 / 1000 Weight 77.111 kg 77 kg Intake: IV 1600 / 1600 1000 / 1000 NS Inj 1,000 ML @ 125 mls/hr IV 1000 / 1000 .CONT .Q8H [facility] Rx#:[id number] INVanz Inj 1,000 MG In NS Inj 100 / 100 100 ML @ 200 mls/hr IV.SIG ONCE ONE Rx#:[id number] NS Inj 1,000 ML @ 80 mls/hr IV. 1000 / 1000 SIG .[id number] [facility] Rx#:[id number] NS Inj 500 ML @ 1000 mls/hr IV. 500 / 500 SIG BOLUS [facility] Rx#:[id number] Output: Urine Amount (Catheter) 400 / 400 Indwelling Urethral Catheter 400 / 400 Other: Date of Last Bowel Movement 09/25/18 09/26/18 # Incontinent Bowel Movements 2 09/25/18 10:40 Catheterized Urine Urine Culture - Preliminary No growth in 24 hours 09/25/18 11:15 Blood - Peripheral Aerobic Blood Culture - Preliminary No growth in 1 day 09/25/18 11:15 Blood - Peripheral Anaerobic Blood Culture - Preliminary No growth in 1 day 09/25/18 11:20 Blood - Peripheral Aerobic Blood Culture - Preliminary No growth in 1 day 09/25/18 11:20 Blood - Peripheral Anaerobic Blood Culture - Preliminary No growth in 1 day 09/25/18 10:40 Nasal Wash Influenza Types A,B Antigen - Final Negative for FLU A and B antigen Infection due to influenza A or B cannot be ruled out since the antigen present in the sample may be below the detection limit of the test. Lab - Hematology Results 09/25/18 09/26/18 10:18 06:52 WBC 10.5 9.6 RBC 3.25 L 2.82 L Hgb 11.2 L 9.8 L Hct 34.0 L 29.0 L MCV 104.4 H 103.0 H MCH 34.4 H 34.8 H MCHC 32.9 33.8 RDW 17.4 H 17.0 Plt Count 138 L 118 L MPV 7.8 7.5 Neut % (Auto) 63.6 67.5 Lymph % (Auto) 27.2 22.4 [place] % (Auto) 5.2 5.5 Eos % (Auto) 3.1 3.2 Baso % (Auto) 0.9 1.4 Neut # (Auto) 6.7 6.5 Lymph # (Auto) 2.9 2.2 [place] # (Auto) 0.5 0.5 Eos # (Auto) 0.3 0.3 Baso # (Auto) 0.1 0.1 WBC Differential . . Differential Comment Auto diff final Auto diff final Lab - Chemistry Results 09/25/18 09/25/18 09/25/18 10:18 10:18 10:18 Sodium 138 Potassium 5.6 H Chloride 114 H Carbon Dioxide 15.6 L Anion Gap 8 BUN 74 H Creatinine 2.28 H Estimated GFR 21 L POC Glucose Random Glucose 133 H Lactic Acid 1.4 Calcium 8.1 L Magnesium 2.3 Total Bilirubin 0.5 AST 35 ALT 14 Alkaline Phosphatase 152 H Ammonia 23 Total Creatine Kinase 118 CK-MB (CK-2) 1.3 Troponin I Less than 0.02 L B-Natriuretic Peptide Total Protein 5.6 L Albumin 1.9 L Lipase 61 L TSH 4.330 H 09/25/18 09/25/18 09/25/18 10:18 19:55 23:31 Sodium 141 Potassium 4.4 D Chloride 115 H Carbon Dioxide 16.1 L Anion Gap 10 BUN 75 H Creatinine 2.26 H Estimated GFR 21 L POC Glucose 142 H Random Glucose 145 H Lactic Acid Calcium 8.0 L Magnesium Total Bilirubin AST ALT Alkaline Phosphatase Ammonia Total Creatine Kinase CK-MB (CK-2) Troponin I B-Natriuretic Peptide 246 H Total Protein Albumin Lipase TSH 09/26/18 09/26/18 09/26/18 04:59 06:52 06:52 Sodium 144 Potassium 4.1 Chloride 117 H Carbon Dioxide 16.3 L Anion Gap 11 BUN 76 H Creatinine 2.23 H Estimated GFR 21 L POC Glucose 126 H Random Glucose 105 Lactic Acid Calcium 7.9 L Magnesium 2.2 Total Bilirubin AST ALT Alkaline Phosphatase Ammonia 16 Total Creatine Kinase CK-MB (CK-2) Troponin I B-Natriuretic Peptide Total Protein Albumin Lipase TSH 09/26/18 12:03 Sodium Potassium Chloride Carbon Dioxide Anion Gap BUN Creatinine Estimated GFR POC Glucose 112 H Random Glucose Lactic Acid Calcium Magnesium Total Bilirubin AST ALT Alkaline Phosphatase Ammonia Total Creatine Kinase CK-MB (CK-2) Troponin I B-Natriuretic Peptide Total Protein Albumin Lipase TSH Imaging: ITS Impressions Chest X-Ray 09/25/18 10:02 CONCLUSION: 1. Cardiomegaly with streaky perihilar and bibasilar opacities of unknown chronicity. This may represent scarring. 2. Both costophrenic angles appear mildly blunted which could indicate small effusions. Head CT 09/25/18 10:02 CONCLUSION: 1. Atrophy and chronic small vessel ischemic change. 2. No evidence of acute hemorrhage or infarction. . Physical Exam: PHYSICAL EXAMINATION: GENERAL: Frail elderly female who is very lethargic. HEENT: The head is atraumatic. Extraocular movements cannot be fully assessed as the patient cannot cooperate. Oropharynx mucosa appears dry. NECK: Supple without adenopathy or swelling. LUNGS: Decreased breath sounds and rhonchi at the bases. HEART: Regular S1 and S2 with a slight systolic murmur at the left sternal border. ABDOMEN: Bowel sounds diminished. Soft, no tenderness appreciated. EXTREMITIES: No clubbing or cyanosis. 2+ pitting edema of the lower extremities and 2+ pitting edema in the upper extremities. The edema extends to the thighs and hips. SKIN: No diffuse rash. PSYCHIATRIC: Unable to assess. Assessment and Plan - Plan IMPRESSION: 1. Urinary tract infection. 2. Probable sepsis. 3. Acute kidney disease. 4. Encephalopathy, likely related to infection and compounded by dementia. RECOMMENDATIONS: 1. Continue ertapenem. 2. Monitor urine culture. 3. Monitor blood culture. 4. Monitor clinical status. Discussed with at bedside. Antibiotic adjustments depending on urine culture. The urine culture at 48 hours shows that the infection is cleared, we can stop the ertapenem.
--- NOTE | 2018-09-26 13:33 | P.PN ---
Subjective Interval history: patient lethargice- opened eyes to after repeated call and vigorous stimulation and stated her name not ff commands generalized weakness Physical Exam Vital signs: Vital Signs 09/25/18 13:59 09/25/18 15:51 09/25/18 17:36 Temperature Pulse Rate 71 68 74 Respiratory Rate 14 17 14 Blood Pressure 182/76 H 110/48 L 109/51 L Pulse Oximetry 97 97 98 09/25/18 20:00 09/25/18 21:00 09/25/18 22:00 Temperature 96 F L Pulse Rate 73 76 76 Respiratory Rate 16 Blood Pressure 119/53 L Pulse Oximetry 94 L 09/25/18 23:00 09/26/18 00:00 09/26/18 01:00 Temperature 96.3 F L Pulse Rate 76 81 80 Respiratory Rate 16 Blood Pressure 104/47 L Pulse Oximetry 97 09/26/18 02:00 09/26/18 03:00 09/26/18 04:00 Temperature 97.4 F L Pulse Rate 78 80 81 Respiratory Rate 16 Blood Pressure 105/50 L Pulse Oximetry 95 09/26/18 05:00 09/26/18 06:00 09/26/18 07:00 Temperature Pulse Rate 80 84 85 Respiratory Rate Blood Pressure Pulse Oximetry 09/26/18 08:00 09/26/18 09:00 09/26/18 10:00 Temperature 97.5 F L Pulse Rate 86 86 86 Respiratory Rate 20 Blood Pressure 115/57 L Pulse Oximetry 94 L 09/26/18 11:00 09/26/18 12:00 Temperature 97.2 F L Pulse Rate 83 84 Respiratory Rate 20 Blood Pressure 135/54 L Pulse Oximetry 93 L Intake & Output 09/25/18 09/26/18 09/26/18 18:59 06:59 18:59 Intake Total 1600 / 1600 1000 / 1000 Output Total 400 / 400 Balance 1600 / 1600 -400 / -400 1000 / 1000 Weight 77.111 kg 77 kg Intake: IV 1600 / 1600 1000 / 1000 NS Inj 1,000 ML @ 125 mls/hr IV 1000 / 1000 .CONT .Q8H [facility] Rx#:[id number] INVanz Inj 1,000 MG In NS Inj 100 / 100 100 ML @ 200 mls/hr IV.SIG ONCE ONE Rx#:[id number] NS Inj 1,000 ML @ 80 mls/hr IV. 1000 / 1000 SIG .[id number] [facility] Rx#:[id number] NS Inj 500 ML @ 1000 mls/hr IV. 500 / 500 SIG BOLUS [facility] Rx#:[id number] Output: Urine Amount (Catheter) 400 / 400 Indwelling Urethral Catheter 400 / 400 Other: Date of Last Bowel Movement 09/25/18 09/26/18 # Incontinent Bowel Movements 2 Narrative: General patient is lethargic. Opened eyes to call of name HEENT atraumatic, normocephalic. Extraocular movements are intact. regular rhythm decreased breath sounds, n rales, no wheezes Abdomen soft, Extremities + pitting edema bilateral lower extremity up to the shins. Bilateral upper extremity pitting edema also noted. - Urinary Catheter Management Indwelling Urethral Catheter Cath placed during this visit: yes Reason for continuing: Hourly intake/output Insertion date: 09/25/18 Insertion time: 10:59 Results - Labs CBC & Chem 7: 09/29/18 04:40 09/29/18 04:40 Laboratory Results - last 24 hr 09/25/18 09/25/18 09/26/18 19:55 23:31 04:59 WBC RBC Hgb Hct MCV MCH MCHC RDW Plt Count MPV Neut % (Auto) Lymph % (Auto) [place] % (Auto) Eos % (Auto) Baso % (Auto) Neut # (Auto) Lymph # (Auto) [place] # (Auto) Eos # (Auto) Baso # (Auto) WBC Differential Differential Comment Sodium 141 Potassium 4.4 D Chloride 115 H Carbon Dioxide 16.1 L Anion Gap 10 BUN 75 H Creatinine 2.26 H Estimated GFR 21 L POC Glucose 142 H 126 H Random Glucose 145 H Calcium 8.0 L Magnesium Ammonia 09/26/18 09/26/18 09/26/18 06:52 06:52 06:52 WBC 9.6 RBC 2.82 L Hgb 9.8 L Hct 29.0 L MCV 103.0 H MCH 34.8 H MCHC 33.8 RDW 17.0 Plt Count 118 L MPV 7.5 Neut % (Auto) 67.5 Lymph % (Auto) 22.4 [place] % (Auto) 5.5 Eos % (Auto) 3.2 Baso % (Auto) 1.4 Neut # (Auto) 6.5 Lymph # (Auto) 2.2 [place] # (Auto) 0.5 Eos # (Auto) 0.3 Baso # (Auto) 0.1 WBC Differential . Differential Comment Auto diff final Sodium 144 Potassium 4.1 Chloride 117 H Carbon Dioxide 16.3 L Anion Gap 11 BUN 76 H Creatinine 2.23 H Estimated GFR 21 L POC Glucose Random Glucose 105 Calcium 7.9 L Magnesium 2.2 Ammonia 16 09/26/18 12:03 WBC RBC Hgb Hct MCV MCH MCHC RDW Plt Count MPV Neut % (Auto) Lymph % (Auto) [place] % (Auto) Eos % (Auto) Baso % (Auto) Neut # (Auto) Lymph # (Auto) [place] # (Auto) Eos # (Auto) Baso # (Auto) WBC Differential Differential Comment Sodium Potassium Chloride Carbon Dioxide Anion Gap BUN Creatinine Estimated GFR POC Glucose 112 H Random Glucose Calcium Magnesium Ammonia Microbiology 09/25/18 10:40 Catheterized Urine Urine Culture - Preliminary No growth in 24 hours 09/25/18 11:15 Blood - Peripheral Aerobic Blood Culture - Preliminary No growth in 1 day 09/25/18 11:15 Blood - Peripheral Anaerobic Blood Culture - Preliminary No growth in 1 day 09/25/18 11:20 Blood - Peripheral Aerobic Blood Culture - Preliminary No growth in 1 day 09/25/18 11:20 Blood - Peripheral Anaerobic Blood Culture - Preliminary No growth in 1 day 09/25/18 10:40 Nasal Wash Influenza Types A,B Antigen - Final Negative for FLU A and B antigen Infection due to influenza A or B cannot be ruled out since the antigen present in the sample may be below the detection limit of the test. Assessment and Plan - Plan This patient is an 83-year-old female with a diagnosis of hypertension, CHF unknown ejection fraction, hypothyroidism, insulin-dependent diabetes. The patient was recently discharged from [facility] with ESBL Klebsiella UTI as per some documentation that was provided by the patient's . During the hospitalization the patient was admitted for acute encephalopathy which was thought to be due to to the UTI. The patient's provided a prescription that was given to the patient for Invanz that the patient was to receive at home for her urinary tract infection. The patient will receive 1 day of the IV antibiotic while at home and her symptoms of encephalopathy and weakness got worse and she was brought into the emergency department for evaluation. She denies any fevers or chills. 1. Acute encephalopathy likely secondary to urinary tract infection- lethargic 2. Probable Sepsis secondary to #1 The patient presented with a low temperature, recently she was treated for ESBL Klebsiella UTI. Urinalysis is positive, Polanco catheter shows cloudy urine. This is likely the source of the patient's current infection. Invanz will be started, records from [facility] are currently pending. Blood cultures have been drawn and will be followed up. Follow-up urine culture. Head CT negative- will get MRI get EEG in am ID ff 3. Acute kidney injury likely secondary to sepsis 4. Hyperkalemia improved 5. Non-anion gap metabolic acidosis likely secondary to acute kidney injury Patient has an elevated serum creatinine of 2.28. Baseline serum creatinine unknown. We will continue to monitor the patient's serum creatinine and kidney function. If no significant improvement by tomorrow nephrology will be consulted. We will give gentle fluid hydration FF BMP 6. Sacral ulcer Patient is a small sacral ulcer. Wound care nurse will be consulted to evaluate the patient. 7. Hypertension Patient has systolic blood pressure in the 180s in the emergency department. She failed bedside swallow evaluation. Hydralazine IV given as needed. We will continue monitor the patient's blood pressure and adjust them as needed. 8. Bilateral Pleural effusion MIldly elevated BNP The patient was having a cough in the emergency department. Chest x-ray was evaluated and shows small bilateral pleural effusions on my evaluation. There is no sputum production. Given the patient's significant bilateral upper and lower extremity edema it appears this might be from fluid. 2D echocardiogram ordered. SCDs for DVT prophylaxis. Failed speech therapy swallowing eval - try to get hold of family- - NGT - dietitian consult for TF recommendation
--- NOTE | 2018-09-26 14:52 | P.PNWCN ---
Wound Care Nurse Consult Description: Received wound management consult from Doctor Rascon for pressure ulcer to sacral area. Communicated with: CYNTHIA Clancy CIC and Doctor Santana Recommendation: 1.Please cleanse wound to sacral area with normal saline or wound cleanser and pat dry. 2. Apply Cavilon skin barrier film to periwound and before applying adhesive dressing to intact skin.Cover wound with optifoam gentle 4x4 dressing available through misogram only. Change dressing every 3 days or PRN if saturated or dislodged. 3. Turn patient from L side to R side,every 2 hours, limiting time spent on back to P.T. and meals 4. Do not use cotton pads on low airloss mattress. Wound/Pressure Injury - Wound Sacrum Wound Staging: DTI (opening to possible full thickness wound) Wound Type: Pressure Injury Is This a Chronic Wound: No Requested from Provider a Wound Care Consult: Yes Length (cm): 4 Width (cm): 2.4 Depth (cm): 0 (DTI is opened ~80% to full thickness wound) Wound Bed Appearance: Red, White, Yellow Wound Bed Appearance: Wound bed presents as non blanchable purple discoloration that has opened up ~80 % to reveal ~80% red non granulation tissue, 10% white tissue and ~10% yellow tissue. There is dark discolored skin that is peeling and still intact over wound. Portion of opened DTI is shallow ~0.1cm in depth. Surrounding Tissue Appearance: Blanched/Dull, [place] Surrounding Tissue Temperature: Cool Drainage Description: Sanguinous Drainage Amount: Scant Drainage Odor: No Odor Dressing Status: Changed Cleansing Solution: Saline Topical: Cavilon skin barrier film to periwound Cover Dressing: bordered gauze Wound Dressing Change Date: 09/26/18 Wound Margin Description: jagged, defined and open - Additional Information Patient seen for evaluation of pressure ulcer to sacral area. Patient seen with CYNTHIA Clancy CIC. Patient appears lethargic, mouths words whn communicating. Patient was turned toward the R side to reveal bordered gauze in place over sacral area. Removed bordered gauze to reveal wound that was once a DTI that is opened ~80% to shallow full thickness skin loss. ~20% of wound is still covered by non blanchable dark purple discoloration to peeling skin.Portion of wound that is opened presents with ~80% red non-granulation tissue, 10% white tissue, ~10% yellow tissue. Wound was cleansed with normal saline. Skin barrier film was applied to periwound and peeling non blanchable skin , before wound was covered with bordered gauze 6x6. Full wound description, measurements and recommendations are noted above.
[2018-09-26] MEDS ORDERED: Ertapenem Inj 500 MG in Sodium Chlor 0.9% Inj 100 ML IV.SIG SCH (15:00)
[2018-09-26] MEDS: Carvedilol 12.5 MG Tablet PO SCH (16:42)
[2018-09-26] MEDS: amLODIPine 5 MG Tablet PO SCH (16:42)
[2018-09-26] MEDS: Sod Chloride 0.9% Inj 1,000 ML IV.CONT SCH (16:42)
--- NOTE | 2018-09-26 16:51 | P.DIET ---
Nutritional Evaluation Type of nutrition evaluation: initial Nutrition consult regarding: Tube Feeding Nutrition screening: MDC (tube feed) Screening comments: 09/26 MDC for TF'ing Objective - Diagnosis metabolic encephalopathy, metabolic acidosis - Objective Body Mass Index: 29.1 % IBW: 141 (IBW = 120lb) Body Weight Used for Calculations: IBW Energy Needs - Lower Range (kCal/kg): 28 Energy Needs - Upper Range (kCal/kg): 32 Lower Limit kCal/kg (kCals): 1,527 Upper Limit kCal/kg (kCals): 1,745 Lower Limit Protein Factor (Grams per Kg): 1.2 Upper Limit Protein Factor (Grams per Kg): 1.5 Lower Protein Needs (Protein): 66 Upper Protein Needs (Protein): 82 Dietitian Reviewed in Medical Record: Curent medications, Intake & Output, Labs , Medical history, Tube feeding Diet Order: NPO Objective Comments: PMH: dementia, DM, gout, hypercholesterolemia, HTN, hypothyroid Labs: BUN 76, Cr 2.23, GFR 21, POC glucose 142 126 112 LBM 09/26 Skin: sacrum DTI, purple. Assessment Assessment: MDC for TF'ing received 09/26. Pt failed swallow test from , remains NPO per recs. RD to recommend Glucerna 1.5 @ 45mL/hr to provide 1620kcal, 89g of protein, 820mL of free water to best meet pts nutritional needs. Wound notes reviewed, pt has DTI on sacrum, will continue to monitor wound status. Monitor TF tolerance. Monitor glucose and renal labs. Labs reviewed, dietitian following. Recommendations: 1. RD to recommend Glucerna 1.5 @ 45mL/hr to best meet pts nutritional needs 2. Wound notes reviewed, pt has DTI on sacrum, will continue to monitor wound status 3. Monitor TF tolerance 4. Monitor glucose and renal labs 5. Dietitian following Dietitian to Monitor: Lab values, Renal labs, Glucose level, Intake & Output, Tube feeding tolerance, Wound/skin status, Swallow recommendations, Medical course
--- NOTE | 2018-09-26 23:17 | ECG ---
Date Performed: 09/25/2018 Time Performed: 10:50:58 PTAGE: 83 years EKG: Sinus rhythm POSSIBLE LEFT ATRIAL ENLARGEMENT MODERATE INTRAVENTRICULAR CONDUCTION DELAY NONSPECIFIC ST & T-WAVE ABNORMALITY BORDERLINE ECG NO PREVIOUS TRACING DOCTOR: Heriberto Moore Interpretating Date/Time 09/26/2018 23:15:30
[2018-09-27] MEDS: Carvedilol 12.5 MG Tablet PO SCH ×2 (00:10→08:37)
[2018-09-27] MEDS: Sodium Chloride 0.9% 2 ML Flush BID IV.FLUSH SCH ×3 (00:11→20:33)
[2018-09-27] MEDS: Levothyroxine 50 MCG Tablet PO SCH (06:35)
[2018-09-27] MEDS: Sod Chloride 0.9% Inj 1,000 ML IV.CONT SCH (06:36)
[2018-09-27 06:58] LABS: Calcium 7.8 mg/dL (8.5-10.1); Carbon Dioxide 15.9 meq/L (21.0-32.0); Potassium 4.3 meq/L (3.5-5.1)
--- NOTE | 2018-09-27 09:29 | US ---
EXAM DATE: 09/27/2018 9:23 AM EST AGE/SEX: 83 years / Female INDICATIONS: Increased lab values. CLINICAL DATA: This is the patient's initial encounter. Patient reports that signs and symptoms have been present for 1 day and indicates a pain score of Nonresponsive. MEDICAL/SURGICAL HISTORY: Diabetes. Hypercholesterolemia. Hypertension. Dementia. Gout. Hypo thyroidism. None. COMPARISON: No prior exams available for comparison. MEASUREMENTS: Right Kidney:__5.7 x 3.5 x 3.0 cm Left Kidney:__9.6 x 4.6 x 4.4 cm FINDINGS: Right Kidney: The right kidney is markedly atrophic with very thin hyperechoic renal cortex. There is no evidence of hydronephrosis. Left Kidney: Increased echogenicity. No mass or hydronephrosis. Bladder: Polanco catheter is present. Bladder decompressed. Other: None. CONCLUSION: 1. Atrophic right kidney 2. Increased left renal cortical echogenicity 3. No evidence of hydronephrosis Electronically signed by: Jared Raymundo MD 09/27/2018 9:28 AM EST
--- NOTE | 2018-09-27 10:00 | P.PN ---
Subjective Interval history: NGT in place this am- definitely more awake-compared to yesterday's exam opened eyes and stated her name, head turning around to side of conversation identiffied her hsuband and stated her name seen with at bedside gripped when hands held seen with speech therapy= continue NPO Physical Exam Vital signs: Vital Signs 09/26/18 10:00 09/26/18 11:00 09/26/18 12:00 Temperature 97.2 F L Pulse Rate 86 83 84 Respiratory Rate 20 Blood Pressure 135/54 L Pulse Oximetry 93 L 09/26/18 13:00 09/26/18 14:00 09/26/18 15:00 Temperature Pulse Rate 86 80 87 Respiratory Rate Blood Pressure Pulse Oximetry 09/26/18 16:00 09/26/18 17:00 09/26/18 18:00 Temperature 97.3 F L Pulse Rate 86 90 80 Respiratory Rate 20 Blood Pressure 132/51 L Pulse Oximetry 97 09/26/18 19:00 09/26/18 20:00 09/26/18 21:00 Temperature 97.0 F L Pulse Rate 80 79 80 Respiratory Rate 20 Blood Pressure 92/48 L Pulse Oximetry 94 L 09/26/18 22:00 09/26/18 23:00 09/27/18 00:00 Temperature 97.0 F L Pulse Rate 78 78 80 Respiratory Rate 16 Blood Pressure 101/46 L Pulse Oximetry 96 09/27/18 01:00 09/27/18 02:00 09/27/18 03:00 Temperature Pulse Rate 80 78 82 Respiratory Rate Blood Pressure Pulse Oximetry 09/27/18 04:00 09/27/18 05:00 09/27/18 06:00 Temperature 97.2 F L Pulse Rate 78 79 79 Respiratory Rate 18 Blood Pressure 96/45 L Pulse Oximetry 98 09/27/18 08:00 Temperature 97.4 F L Pulse Rate 82 Respiratory Rate 20 Blood Pressure 103/44 L Pulse Oximetry 98 Intake & Output 09/26/18 09/27/18 09/27/18 18:59 06:59 18:59 Intake Total 2099 1000 / 1000 Output Total 100 / 100 100 / 100 Balance 1999 900 / 900 Weight 67.5 kg Intake: IV 2099 1000 / 1000 NS Inj 1,000 ML @ 42 mls/hr IV. 1000 / 1000 CONT .[id number] [facility] Rx#:[id number] INVanz Inj 500 MG In NS Inj 100 100 / 100 ML @ 200 mls/hr IV.SIG Q24H [facility] Rx#:[id number] NS Inj 1,000 ML @ 80 mls/hr IV. 1999 SIG .[id number] [facility] Rx#:[id number] Oral 0 / 0 Output: Urine Amount (Catheter) 100 / 100 100 / 100 Indwelling Urethral Catheter 100 / 100 100 / 100 Other: Date of Last Bowel Movement 09/26/18 09/26/18 09/26/18 # Incontinent Bowel Movements 2 Narrative: General - more awake, stated her name, turned to call of her name, shakes =her head no when asked if in pain HEENT atraumatic, normocephalic. Extraocular movements are intact. regular rhythm decreased breath sounds,+ upper airways secretions- not clearing secretions Abdomen soft, Extremities + pitting edema bilateral lower extremity up to the shins. gripped when both hands held Bilateral upper extremity pitting edema also noted. - Urinary Catheter Management Indwelling Urethral Catheter Cath placed during this visit: yes Reason for continuing: Hourly intake/output Insertion date: 09/25/18 Insertion time: 10:59 Results - Labs CBC & Chem 7: 09/29/18 04:40 09/29/18 04:40 Laboratory Results - last 24 hr 09/26/18 09/26/18 09/26/18 12:03 16:55 22:34 Sodium Potassium Chloride Carbon Dioxide Anion Gap BUN Creatinine Estimated GFR POC Glucose 112 H 138 H 106 Random Glucose Calcium 09/27/18 05:17 Sodium 145 Potassium 4.3 Chloride 119 H Carbon Dioxide 15.9 L Anion Gap 10 BUN 80 H Creatinine 2.47 H Estimated GFR 19 L POC Glucose Random Glucose 94 Calcium 7.8 L Microbiology 09/25/18 10:40 Catheterized Urine Urine Culture - Final No growth in 48 hours 09/25/18 11:15 Blood - Peripheral Aerobic Blood Culture - Preliminary No growth in 1 day 09/25/18 11:15 Blood - Peripheral Anaerobic Blood Culture - Preliminary No growth in 1 day 09/25/18 11:20 Blood - Peripheral Aerobic Blood Culture - Preliminary No growth in 1 day 09/25/18 11:20 Blood - Peripheral Anaerobic Blood Culture - Preliminary No growth in 1 day - Imaging Impressions Abdomen/Bladder Ultrasound 09/27/18 00:00 CONCLUSION: 1. Atrophic right kidney 2. Increased left renal cortical echogenicity 3. No evidence of hydronephrosis Assessment and Plan - Plan This patient is an 83-year-old female with a diagnosis of hypertension, CHF unknown ejection fraction, hypothyroidism, insulin-dependent diabetes. The patient was recently discharged from [facility] with ESBL Klebsiella UTI as per some documentation that was provided by the patient's . During the hospitalization the patient was admitted for acute encephalopathy which was thought to be due to to the UTI. The patient's provided a prescription that was given to the patient for Invanz that the patient was to receive at home for her urinary tract infection. The patient will receive 1 day of the IV antibiotic while at home and her symptoms of encephalopathy and weakness got worse and she was brought into the emergency department for evaluation. She denies any fevers or chills. Acute encephalopathy likely secondary to urinary tract infection- lethargic - today more awake and alert Probable Sepsis secondary to #1 was recently discharge from [facility] and treated for UTI recently she was treated for ESBL Klebsiella UTI. Urinalysis is positive, Polanco catheter shows cloudy urine. This is likely the source of the patient's current infection. Invanz will be started, records from [facility] are currently pending. ID ff Blood cultures have been drawn and will be followed up. Follow-up urine culture. Head CT negative- will get MRI pending DM- blood sugars good with worsening renal functions- - hold insulin Acute kidney injury likely secondary to sepsis= worsening renal functions HYperkalemia- improved - on further history with hsuband- was told her kidneys were 15% - in [place] - was given Lasix 40 mg bid for swelling - improved - get Nephrology consult- was seen by Dr. Castillo while in [facility]- - US of the kidneys pending CHF-likely diastolic dysfunction- EF 55%, mildly elevated BNP Pleural effusion - was told "stiff heart" History of CAD s/p stents - about 3-7 years ago HYpertesnion - hold Lasix but difficutl with worsening renal fucntions Sacral ulcer Patient is a small sacral ulcer. Wound care nurse consulted SCDs for DVT prophylaxis. Failed speech therapy swallowing eval - NGT- placed 09/26 - dietitian consult for TF recommendation - today more awake - will get speech to continue to ff uup patient - may require PEG to meet nutritional requirement- snf On further discussion with - baseline- the most she can do is stand with a walker - for past 3 years however a month ago- progressive decline - he assit her with food, feeding and ADLs since DC from [facility] - at that time- Hospital recommended DC to SNF but refused and state he can do everything that PT was doing at home - brought her here because he does not trust hospital in [place] will consult Palliative care top determine goals of care
[2018-09-27] MEDS: amLODIPine 5 MG Tablet PO SCH (11:52)
--- NOTE | 2018-09-27 12:16 | P.CONNP ---
<Emelyn Bowser - Last Filed: 09/27/18 17:02> History of Present Illness Reason for Consult: Acute on CKD Primary Care Provider: Rylan Mcknight History of Present Illness: Patient is an 83 year old female with a prior medical history of hypertension, CHF, hypothyroidism, diabetes. Past surgical history status post pacemaker placement and stent placement x3.The patient was recently discharged from [facility] with ESBL Klebsiella UTI. During the hospitalization the patient was admitted for acute encephalopathy which was thought to be due to to the UTI. The patient was released and was having weakness and a decline in mental status at home so was taken the ED. The patient is from [place], her was at beside and provided the information. The patient was lethargic and unable to answer questions. Patient's was unaware of any kidney problems and we have no baseline renal function. Creatinine is 2.47, eGFR 19, BUN 80. CT of abdomen showed atrophic right kidney. The patient is a history of tobacco smoking, denies any history of alcohol use or drug use. Review of Systems All other systems reviewed negative except as stated in HPI PMFSH - History History Provided By: Family Member - Medical History Medical History: Medical History (Last Reviewed 09/27/18 @ 13:33 by Monica Jacobsen MD) Dementia Diabetes Gout Hypercholesteremia Hypertension Hypothyroid Medical history unknown Surgical history unknown - Surgical History Surgical History: Surgical History (Last Updated 09/27/18 @ 16:41 by Kay Gibson) History of permanent cardiac pacemaker placement - Family History Family History: Family History (Last Updated 09/27/18 @ 16:42 by Kay Gibson) Other Has 4 children - Tobacco History Second Hand Smoke Exposure: No Smoking Status: Never smoker - Alcohol History How Often Do You Have a Drink Containing Alcohol: 2 to 4 times a month - Substance Use History Substance History: No History of Abuse - Travel History Recent Travel in the [place] Within the Last 8 Weeks: No Recent Travel Out of the Country Within the Last 8 Weeks: No - Immunization History Tetanus Immunization: Unsure Medications and Allergies Allergies Allergy/AdvReac Type Severity Reaction Status Date / Time No Known Allergies Allergy Verified 09/25/18 09:53 Home Medications Medication Instructions Recorded Confirmed Type allopurinol 300 mg PO DAILY 09/25/18 09/25/18 History aspirin [Aspir-81] 81 mg PO DAILY 09/25/18 09/25/18 History carvedilol 12.5 mg PO BID 09/25/18 09/25/18 History clopidogrel [Plavix] 75 mg PO DAILY 09/25/18 09/25/18 History ferrous sulfate 325 mg PO DAILY 09/25/18 09/25/18 History furosemide 40 mg PO DAILY 09/25/18 09/25/18 History insulin glargine [Lantus U-100 15 unit SUBCUT DAILY 09/25/18 09/25/18 History Insulin] levothyroxine 50 mcg PO DAILY 09/25/18 09/25/18 History lovastatin 20 mg PO DAILY 09/25/18 09/25/18 History potassium chloride 10 meq PO DAILY 09/25/18 09/25/18 History sucralfate 1 g PO ACHS 09/25/18 09/25/18 History Active Medications: Active Medications Amlodipine Besylate (Norvasc) 5 mg PO DAILY [facility] Last Admin: 09/27/18 11:52 Dose: Not Given Aspirin (Aspirin Chew) 81 mg PO DAILY [facility] Last Admin: 09/27/18 08:37 Dose: 81 mg Atorvastatin Calcium (Lipitor) 20 mg PO HS [facility] Last Admin: 09/27/18 00:10 Dose: 20 mg Carvedilol (Coreg) 12.5 mg PO BID [facility] Last Admin: 09/27/18 08:37 Dose: 12.5 mg Clopidogrel Bisulfate (Plavix) 75 mg PO DAILY [facility] Last Admin: 09/27/18 08:37 Dose: 75 mg Hydralazine HCl (Apresoline Inj) 10 mg IV.PUSH Q4H PRN PRN Reason: BLOOD PRESSURE MANAGEMENT Ertapenem 500 mg/ Sodium (Chloride) 100 mls @ 200 mls/hr IV.SIG Q24H [facility] Last Infusion: 09/26/18 16:40 Dose: Infused Sodium Chloride (Ns Inj) 1,000 mls @ 42 mls/hr IV.CONT .[id number] [facility] Last Admin: 09/27/18 06:36 Dose: 42 mls/hr Levothyroxine Sodium (Synthroid) 50 mcg PO DAILY@0600 [facility] Last Admin: 09/27/18 06:35 Dose: 50 mcg Sodium Chloride (Ns Flush) 2 ml IV.FLUSH BID [facility] Last Admin: 09/27/18 08:38 Dose: Not Given Sodium Chloride (Ns Flush) 2 ml IV.FLUSH PRN PRN PRN Reason: FLUSH AFTER USING IV ACCESS Exam Vital signs: Vital Signs 09/26/18 13:00 09/26/18 14:00 09/26/18 15:00 Temperature Pulse Rate 86 80 87 Respiratory Rate Blood Pressure Pulse Oximetry 09/26/18 16:00 09/26/18 17:00 09/26/18 18:00 Temperature 97.3 F L Pulse Rate 86 90 80 Respiratory Rate 20 Blood Pressure 132/51 L Pulse Oximetry 97 09/26/18 19:00 09/26/18 20:00 09/26/18 21:00 Temperature 97.0 F L Pulse Rate 80 79 80 Respiratory Rate 20 Blood Pressure 92/48 L Pulse Oximetry 94 L 09/26/18 22:00 09/26/18 23:00 09/27/18 00:00 Temperature 97.0 F L Pulse Rate 78 78 80 Respiratory Rate 16 Blood Pressure 101/46 L Pulse Oximetry 96 09/27/18 01:00 09/27/18 02:00 09/27/18 03:00 Temperature Pulse Rate 80 78 82 Respiratory Rate Blood Pressure Pulse Oximetry 09/27/18 04:00 09/27/18 05:00 09/27/18 06:00 Temperature 97.2 F L Pulse Rate 78 79 79 Respiratory Rate 18 Blood Pressure 96/45 L Pulse Oximetry 98 09/27/18 07:00 09/27/18 08:00 09/27/18 09:00 Temperature 97.4 F L Pulse Rate 79 80 78 Respiratory Rate 20 Blood Pressure 103/44 L Pulse Oximetry 98 09/27/18 10:00 09/27/18 11:00 09/27/18 12:00 Temperature 96.8 F L Pulse Rate 74 82 76 Respiratory Rate 20 Blood Pressure 115/44 L Pulse Oximetry 97 Intake & Output 09/26/18 09/27/18 09/27/18 18:59 06:59 18:59 Intake Total 2099 1000 / 1000 Output Total 100 / 100 100 / 100 Balance 1999 900 / 900 Weight 67.5 kg Intake: IV 2099 1000 / 1000 NS Inj 1,000 ML @ 42 mls/hr IV. 1000 / 1000 CONT .[id number] [facility] Rx#:[id number] INVanz Inj 500 MG In NS Inj 100 100 / 100 ML @ 200 mls/hr IV.SIG Q24H [facility] Rx#:[id number] NS Inj 1,000 ML @ 80 mls/hr IV. 1999 SIG .[id number] [facility] Rx#:[id number] Oral 0 / 0 Output: Urine Amount (Catheter) 100 / 100 100 / 100 Indwelling Urethral Catheter 100 / 100 100 / 100 Other: Date of Last Bowel Movement 09/26/18 09/26/18 09/26/18 # Incontinent Bowel Movements 2 - Constitutional no acute distress, chronically ill appearing, obtunded - Routine HEENT Exam Head: Present: normocephalic Eye: Present: EOMI, PERRL ENT: Present: mucous membranes moist - Routine Neck Exam Present: trachea midline. Absent: JVD, tracheal deviation - Routine Respiratory Exam Absent: accessory muscle use, respiratory distress - Routine Cardiovascular Exam Present: RRR - Routine Abdominal Exam Absent: tenderness, distended - Routine Extremities Exam Present: edema - Routine Neurological Exam Absent: alert, oriented X3 Results - Lab Results 09/27/18 13:03 09/27/18 13:03 Most recent lab results Calcium 7.8 mg/dL (8.5-10.1) L 09/27/18 05:17 Magnesium 2.2 mg/dL (1.5-2.5) 09/26/18 06:52 Assessment and Plan - Plan JEREL Patient most likely has Chronic Kidney Disease stage IV. Acute on Chronic Kidney Failure could be due to fluid overload. We have no baseline renal function. Creatinine is 2.47, eGFR 19, BUN 80. CT of abdomen showed atrophic right kidney. Patient would not be a good candidate for dialysis. Monitor fluid and electrolytes. Avoid nephrotoxic agents. UTI Recent ESBL E. coli UTI treated at [facility]. Consider removing reeves. Possible Sepsis. Zosyn started. Encephalopathy Likely related to infection and compounded by dementia. Poor prognosis. <Chapin Hawk - Last Filed: 09/27/18 22:24> History of Present Illness Primary Care Provider: Rylan Mcknight [facility] - Medical History Medical History: Medical History (Last Reviewed 09/27/18 @ 13:33 by Monica Jacobsen MD) Dementia Diabetes Gout Hypercholesteremia Hypertension Hypothyroid Medical history unknown Surgical history unknown - Surgical History Surgical History: Surgical History (Last Updated 09/27/18 @ 16:41 by Kay Gibson) History of permanent cardiac pacemaker placement - Family History Family History: Family History (Last Updated 09/27/18 @ 16:42 by Kay Gibson) Other Has 4 children Medications and Allergies Active Medications: Active Medications Amlodipine Besylate (Norvasc) 5 mg PO DAILY [facility] Last Admin: 09/27/18 11:52 Dose: Not Given Aspirin (Aspirin Chew) 81 mg PO DAILY [facility] Last Admin: 09/27/18 08:37 Dose: 81 mg Atorvastatin Calcium (Lipitor) 20 mg PO HS [facility] Last Admin: 09/27/18 20:33 Dose: 20 mg Carvedilol (Coreg) 12.5 mg PO BID [facility] Last Admin: 09/27/18 08:37 Dose: 12.5 mg Clopidogrel Bisulfate (Plavix) 75 mg PO DAILY [facility] Last Admin: 09/27/18 08:37 Dose: 75 mg Famotidine (Pepcid Pf Inj) 10 mg IV.PUSH Q12HR [facility] Last Admin: 09/27/18 20:33 Dose: 10 mg Hydralazine HCl (Apresoline Inj) 10 mg IV.PUSH Q4H PRN PRN Reason: BLOOD PRESSURE MANAGEMENT Sodium Bicarbonate 150 meq/ (Sterile Water) 1,000 mls @ 150 mls/hr IV.CONT .Q6H40M [facility] Last Admin: 09/27/18 20:41 Dose: 150 mls/hr Midazolam HCl (Versed Inj) 100 mg in 100 mls @ 2 mls/hr IV.CONT TITRATE PRN; Protocol PRN Reason: See protocol Piperacillin/Tazobactam/Dextrose (Zosyn 2.25 Gm Premix) 2.25 gm in 50 mls @ 100 mls/hr IV.SIG Q8H [facility] Last Infusion: 09/27/18 15:40 Dose: Infused Fosphenytoin Sodium 100 mgpe/ (Sodium Chloride) 52 mls @ 208 mls/hr IV.SIG Q8HR [facility] Last Infusion: 09/27/18 21:55 Dose: Infused Levothyroxine Sodium (Synthroid) 50 mcg PO DAILY@0600 [facility] Last Admin: 09/27/18 06:35 Dose: 50 mcg Lorazepam (Ativan Inj) 1 mg IV.PUSH Q4H PRN PRN Reason: SEIZURES Sodium Chloride (Ns Flush) 2 ml IV.FLUSH BID [facility] Last Admin: 09/27/18 20:33 Dose: 2 ml Sodium Chloride (Ns Flush) 2 ml IV.FLUSH PRN PRN PRN Reason: FLUSH AFTER USING IV ACCESS Exam Vital signs: Vital Signs 09/26/18 23:00 09/27/18 00:00 09/27/18 01:00 Temperature 97.0 F L Pulse Rate 78 80 80 Respiratory Rate 16 Blood Pressure 101/46 L Pulse Oximetry 96 09/27/18 02:00 09/27/18 03:00 09/27/18 04:00 Temperature 97.2 F L Pulse Rate 78 82 78 Respiratory Rate 18 Blood Pressure 96/45 L Pulse Oximetry 98 09/27/18 05:00 09/27/18 06:00 09/27/18 07:00 Temperature Pulse Rate 79 79 79 Respiratory Rate Blood Pressure Pulse Oximetry 09/27/18 08:00 09/27/18 09:00 09/27/18 10:00 Temperature 97.4 F L Pulse Rate 80 78 74 Respiratory Rate 20 Blood Pressure 103/44 L Pulse Oximetry 98 09/27/18 11:00 09/27/18 12:00 09/27/18 12:17 Temperature 96.8 F L Pulse Rate 82 76 Respiratory Rate 20 Blood Pressure 115/44 L Pulse Oximetry 97 100 09/27/18 13:00 09/27/18 13:12 09/27/18 14:00 Temperature Pulse Rate 72 62 Respiratory Rate 20 Blood Pressure Pulse Oximetry 100 09/27/18 15:00 09/27/18 16:00 09/27/18 17:00 Temperature 97.5 F L Pulse Rate 72 76 60 Respiratory Rate 20 Blood Pressure 66/29 L Pulse Oximetry 100 09/27/18 18:00 Temperature Pulse Rate 59 L Respiratory Rate Blood Pressure Pulse Oximetry Intake & Output 09/27/18 09/27/18 09/28/18 06:59 18:59 06:59 Intake Total 1000 / 1000 2119 1052 / 1052 Output Total 100 / 100 100 / 100 Balance 900 / 900 2019 1052 / 1052 Weight 67.5 kg Intake: IV 1000 / 1000 2119 1052 / 1052 NS Inj 1,000 ML @ 42 mls/hr IV. 1000 / 1000 1000 / 1000 CONT .[id number] [facility] Rx#:[id number] Sodium Bicarbonate 8.4% Inj 150 1000 / 1000 MEQ In Sterile Water for Inj 850 ML @ 150 mls/hr IV.CONT . Q6H40M [facility] Rx#:[id number] Cerebyx Inj 100 MGPE In NS Inj 52 / 52 50 ML @ 208 mls/hr IV.SIG Q8HR [facility] Rx#:[id number] Cerebyx Inj 1,000 MGPE In NS 70 / 70 Inj 50 ML @ 280 mls/hr IV.SIG [facility]CE [facility] Rx#:[id number] Zosyn 2.25 GM Premix 2.25 gm In 50 / 50 50 ml @ 100 mls/hr IV.SIG Q8H [facility] Rx#:[id number] NS Inj 1,000 ML @ 1000 mls/hr 1000 / 1000 IV.SIG BOLUS [facility] Rx#:[id number] Oral 0 / 0 0 / 0 Output: Urine Amount (Catheter) 100 / 100 100 / 100 Indwelling Urethral Catheter 100 / 100 100 / 100 Other: Date of Last Bowel Movement 09/26/18 09/27/18 # Incontinent Bowel Movements 2 1 Results - Lab Results 09/27/18 13:03 09/27/18 13:03 Most recent lab results ABG pH 7.26 (7.380-7.420) L* 09/27/18 13:18 ABG pCO2 30 mmHg (38-42) L 09/27/18 13:18 ABG pO2 309 mmHG (61-120) H 09/27/18 13:18 ABG HCO3 13 mmol/L (22-26) L* 09/27/18 13:18 Calcium 7.6 mg/dL (8.5-10.1) L 09/27/18 13:03 Magnesium 2.2 mg/dL (1.5-2.5) 09/26/18 06:52 Assessment and Plan - Attending Attestation patient was seen and examined. I saw her before she was transferred to ICU. She appeared very poorly responsive, I discussed with the hospitalist. Later she was transferred to ICU, intubated. Metabolic acidosis. Acute on chronic kidney disease. Atrophic right kidney. Poor prognosis. Bicarbonate drip. Antibiotic changed to Zosyn by ID. Monitor fluid and electrolytes and volume status. She had significant edema. involving lower extremities.
[2018-09-27 12:34] LABS: ABG Base Excess -15.4 mmol/L (-2-2); ABG PCO2 37 mmHg (38-42); ABG PO2 256 mmHG (61-120)
--- NOTE | 2018-09-27 12:37 | P.PNADD ---
Addendum to Inpatient Note Reason for Addendum: Additional Documentation Additional information: Swati called called nurse into the room states he was talking to her and then started "convulsing" BP 66/40 HR sinus 70s Sat 93 % on exam- obtunded Shock - given IV bolus- -will need Inotropics Acute SZ - obtunded - Stat ABG shows metabolic acidosis -stat transfer to [facility]- d/w Dr. Ortega- -will need intubation -stat EEG - patient was scheduled to go for MRI brain this pm for work up of encephalopathy- - PM interrogated by Dr. Colon- MRI compatible - proceed if hemodynamically stable d/w Dr. ortega and
--- NOTE | 2018-09-27 13:01 | P.PCN ---
Date of procedure: 09/27/18 Pre-op diagnosis: Acute resp failure Post-op diagnosis: same Procedure: PROCEDURE: Endotracheal intubation INDICATION: Acute respiratory failure DETAILS OF PROCEDURE: Patient was brought into the ICU from [facility], unresponsive. The patient was placed in optimal position and preoxygenated with 100% FiO2 via [id number]. The patient was given 5 mg IV Versed. Direct Laryngoscopy was performed with a 4 blade and a grade 1 view was obtained, On single attempt, endotracheal tube was visualized passing through the cords. Correct placement was confirmed with colorimetric CO2 detector. Breath sounds were equal bilaterally. No sounds auscultated over the stomach. The endotracheal tube was secured with a commercial tube faust at a depth of 24 cm at the lips. The patient was connected to the ventilator. The patient tolerated the procedure well without any apparent complication. Oxygen saturations were maintained greater than 95% at all times. Stat chest x-ray was ordered. Anesthesia: DEBBY Surgeon: Monica Jacobsen Estimated blood loss (mL): 0 Pathology: other (sputum) Condition: critical Disposition: ICU
--- NOTE | 2018-09-27 13:03 | P.PCN ---
Date of procedure: 09/27/18 Pre-op diagnosis: Shock Post-op diagnosis: same Procedure: Right subclavian central line Central line checklist completed, timeout completed. I wore a surgical cap, mask with protective eyewear, full gown and sterile gloves throughout the procedure. Right subclavian region was prepped using chlorhexidine scrub and draped in sterile fashion. Anesthesia was achieved over the vein using 1% lidocaine. The introducer needle was inserted into the right subclavian and venous blood was withdrawn. The syringe was removed and a guidewire was advanced into the introducer needle. A small incision was made at the skin surface with a scalpel and the introducer needle was exchanged for a dilator over the guidewire. After appropriate dilation was obtained, the dilator was exchanged over the wire for a triple lumen, 7F, antibiotic coated central venous catheter. The wire was removed and the catheter was secured in place at 19 cm with a StatLock. A sterile central line dressing was placed over the catheter at the insertion site. The patient tolerated the procedure without any hemodynamic compromise. At time of procedure completion, all ports aspirated and flushed properly. Post-procedure chest x-ray is pending at this time. Anesthesia: local Surgeon: Monica Jacobsen Estimated blood loss (mL): 1 Pathology: none sent Condition: critical Disposition: ICU
--- NOTE | 2018-09-27 13:10 | P.CONCC ---
History of Present Illness Service: Critical care Consult date: 09/27/18 Requesting Physician: Nick Santana Reason for Consult: Acute respiratory failure, altered mental status Primary Care Provider: Rylan Mcknight Chief Complaint: Probable seizures History of Present Illness: Patient is an 83 year old female with a prior medical history of diabetes, dementia, hypertension, CHF, hypothyroidism, history of coronary artery disease status post stent placement, and pacemaker placement. She was recently admitted and discharged from [facility] after treatment for UTI with ESBL Klebsiella. During the hospitalization the patient was admitted for acute encephalopathy which was thought to be due to to the UTI. She had encephalopathy during sepsis. However post discharge she continued to decline with increasing weakness and lethargy. Patient was admitted to hospitalist service on 09/25/2018 for mental status changes. Admission CAT scan was negative for any acute findings. Patient was placed on Invanz for recent ESBL E. coli UTI. Also patient was scheduled to get an MRI of the brain today for altered mental status workup. Today a.m. per Dr. Santana the patient was talking. Towards noon, stated that he witnessed his go into convulsions and became unresponsive. A halicat was called as the patient was unresponsive and hypotensive after the convulsion episode. Blood pressure was 66/40 obtunded not protecting airway. A stat ABG showed a pH of 7.13 PCO2 of 37 and base excess -15. [place] emerg[place] [facility] [place]. Clearly was not protecting airway. Because of severe metabolic acidosis I gave 1 amp of bicarb and started Levophed to keep map above 65 prior to intubation. Wide open normal saline fluid boluses were also started. Intubated and placed the patient on mechanical ventilation. Following this I also placed a right subclavian central line. Discussed with ID Invanz discontinued due to possible seizures and Zosyn started. Stat EEG ordered Review of Systems unobtainable due to mental condition, unobtainable due to mental status PMFSH - History History Provided By: Family Member - Medical History Medical History: Medical History (Last Reviewed 09/27/18 @ 13:33 by Monica Jacobsen MD) Dementia Diabetes Gout Hypercholesteremia Hypertension Hypothyroid Medical history unknown Surgical history unknown - Surgical History Surgical History: Surgical History (Last Updated 09/27/18 @ 16:41 by Kay Gibson) History of permanent cardiac pacemaker placement - Family History Family History: Family History (Last Updated 09/27/18 @ 16:42 by Kay Gibson) Other Has 4 children - Tobacco History Second Hand Smoke Exposure: No Smoking Status: Never smoker - Alcohol History How Often Do You Have a Drink Containing Alcohol: 2 to 4 times a month - Substance Use History Substance History: No History of Abuse - Travel History Recent Travel in the [place] Within the Last 8 Weeks: No Recent Travel Out of the Country Within the Last 8 Weeks: No - Immunization History Tetanus Immunization: Unsure Medications and Allergies Active Medications: Active Medications Amlodipine Besylate (Norvasc) 5 mg PO DAILY [facility] Last Admin: 09/27/18 11:52 Dose: Not Given Aspirin (Aspirin Chew) 81 mg PO DAILY [facility] Last Admin: 09/27/18 08:37 Dose: 81 mg Atorvastatin Calcium (Lipitor) 20 mg PO HS [facility] Last Admin: 09/27/18 00:10 Dose: 20 mg Carvedilol (Coreg) 12.5 mg PO BID [facility] Last Admin: 09/27/18 08:37 Dose: 12.5 mg Clopidogrel Bisulfate (Plavix) 75 mg PO DAILY [facility] Last Admin: 09/27/18 08:37 Dose: 75 mg Hydralazine HCl (Apresoline Inj) 10 mg IV.PUSH Q4H PRN PRN Reason: BLOOD PRESSURE MANAGEMENT Ertapenem 500 mg/ Sodium (Chloride) 100 mls @ 200 mls/hr IV.SIG Q24H [facility] Last Infusion: 09/26/18 16:40 Dose: Infused Sodium Chloride (Ns Inj) 1,000 mls @ 42 mls/hr IV.CONT .[id number] [facility] Last Admin: 09/27/18 06:36 Dose: 42 mls/hr Levothyroxine Sodium (Synthroid) 50 mcg PO DAILY@0600 [facility] Last Admin: 09/27/18 06:35 Dose: 50 mcg Sodium Chloride (Ns Flush) 2 ml IV.FLUSH BID [facility] Last Admin: 09/27/18 08:38 Dose: Not Given Sodium Chloride (Ns Flush) 2 ml IV.FLUSH PRN PRN PRN Reason: FLUSH AFTER USING IV ACCESS Allergies Allergy/AdvReac Type Severity Reaction Status Date / Time No Known Allergies Allergy Verified 09/25/18 09:53 Home Medications Medication Instructions Recorded Confirmed Type allopurinol 300 mg PO DAILY 09/25/18 09/25/18 History aspirin [Aspir-81] 81 mg PO DAILY 09/25/18 09/25/18 History carvedilol 12.5 mg PO BID 09/25/18 09/25/18 History clopidogrel [Plavix] 75 mg PO DAILY 09/25/18 09/25/18 History ferrous sulfate 325 mg PO DAILY 09/25/18 09/25/18 History furosemide 40 mg PO DAILY 09/25/18 09/25/18 History insulin glargine [Lantus U-100 15 unit SUBCUT DAILY 09/25/18 09/25/18 History Insulin] levothyroxine 50 mcg PO DAILY 09/25/18 09/25/18 History lovastatin 20 mg PO DAILY 09/25/18 09/25/18 History potassium chloride 10 meq PO DAILY 09/25/18 09/25/18 History sucralfate 1 g PO ACHS 09/25/18 09/25/18 History Physical Exam Vital signs: Vital Signs 09/26/18 14:00 09/26/18 15:00 09/26/18 16:00 Temperature 97.3 F L Pulse Rate 80 87 86 Respiratory Rate 20 Blood Pressure 132/51 L Pulse Oximetry 97 09/26/18 17:00 09/26/18 18:00 09/26/18 19:00 Temperature Pulse Rate 90 80 80 Respiratory Rate Blood Pressure Pulse Oximetry 09/26/18 20:00 09/26/18 21:00 09/26/18 22:00 Temperature 97.0 F L Pulse Rate 79 80 78 Respiratory Rate 20 Blood Pressure 92/48 L Pulse Oximetry 94 L 09/26/18 23:00 09/27/18 00:00 09/27/18 01:00 Temperature 97.0 F L Pulse Rate 78 80 80 Respiratory Rate 16 Blood Pressure 101/46 L Pulse Oximetry 96 09/27/18 02:00 09/27/18 03:00 09/27/18 04:00 Temperature 97.2 F L Pulse Rate 78 82 78 Respiratory Rate 18 Blood Pressure 96/45 L Pulse Oximetry 98 09/27/18 05:00 09/27/18 06:00 09/27/18 07:00 Temperature Pulse Rate 79 79 79 Respiratory Rate Blood Pressure Pulse Oximetry 09/27/18 08:00 09/27/18 09:00 09/27/18 10:00 Temperature 97.4 F L Pulse Rate 80 78 74 Respiratory Rate 20 Blood Pressure 103/44 L Pulse Oximetry 98 09/27/18 11:00 09/27/18 12:00 09/27/18 12:17 Temperature 96.8 F L Pulse Rate 82 76 Respiratory Rate 20 Blood Pressure 115/44 L Pulse Oximetry 97 100 Intake & Output 09/26/18 09/27/18 09/27/18 18:59 06:59 18:59 Intake Total 2099 1000 / 1000 Output Total 100 / 100 100 / 100 Balance 1999 900 / 900 Weight 67.5 kg Intake: IV 2099 1000 / 1000 NS Inj 1,000 ML @ 42 mls/hr IV. 1000 / 1000 CONT .[id number] [facility] Rx#:[id number] INVanz Inj 500 MG In NS Inj 100 100 / 100 ML @ 200 mls/hr IV.SIG Q24H [facility] Rx#:[id number] NS Inj 1,000 ML @ 80 mls/hr IV. 1999 SIG .[id number] [facility] Rx#:[id number] Oral 0 / 0 Output: Urine Amount (Catheter) 100 / 100 100 / 100 Indwelling Urethral Catheter 100 / 100 100 / 100 Other: Date of Last Bowel Movement 09/26/18 09/26/18 09/27/18 # Incontinent Bowel Movements 2 Narrative: [id number]-old female who is unresponsive and agonal breathing 100% nonrebreather HEENT atraumatic, normocephalic. Upward gaze no nystagmus. Pupils equal Neck: No JVD. Neck supple Resp: Air entry equal but diminished bilaterally. Poor respiratory effort. Respiratory rate less than 5 breaths/min very shallow CVS: Hypotensive heart rate in the 60s systolic blood pressure initially in the 60s. Currently started on Levophed Abdomen soft, nontender Extremities + pitting edema bilateral lower extremity Neuro: Patient is unresponsive with upward gaze. To deep painful stimuli very slight withdrawal of the upper extremities. Did not follow commands no spontaneous eye opening - Urinary Catheter Management Indwelling Urethral Catheter Cath placed during this visit: yes Reason for continuing: Hourly intake/output Insertion date: 09/25/18 Insertion time: 10:59 Septic Shock Reassessment Septic shock perfusion: reassessment completed Assessment and Plan - Assessment and Plan Plan: ASSESSMENT: Acute metabolic encephalopathy Acute respiratory failure New onset seizures Severe metabolic acidosis Septic shock Acute kidney failure Dementia Diabetes Gout Dyslipidemia Hypertension Hypothyroid PLAN: NEURO: -Probable new onset seizures with postictal state -Apparently had a second episode while in the CT scanner -Seizure it could be related to Invanz, this had been discontinued -Stat EEG, loading dose of fosphenytoin 1 g followed by 100 mg every 8 hours. Neurology consult -Check Dilantin level in a.m. -Hold MRI of the brain until more stable -Versed infusion for ventilator synchrony and seizure control -PRN IV Ativan RESP: -Emergently intubated and placed on mechanical ventilation due to inability to protect airway -PRVC/AC. Ventilator bundle -DuoNeb every 6 hours as needed -Sputum culture CV: -Normal saline IV fluids 2 L bolus, bicarb infusion at 150 mL/h -Levophed to keep map above 65 -Check lactic acid and trend if high -Check troponin GI: -N.p.o., IV famotidine : -Monitor renal function closely. Polanco catheter. -Nephrology is following. Dr. Hawk -Renal ultrasound did not show any evidence of hydronephrosis ID: -Antibiotics DC Invanz start Zosyn per Dr. Vanegas -Blood urine cultures on admission are negative. Repeat blood and sputum culture -Recent ESBL E. coli UTI treated at [facility] HEME: -Monitor CBC, coags ENDO: -Electrolyte replacement if needed PROPH: -Bilateral lower extremity SCDs. Hold chemical DVT prophylaxis until CT of the head is completed. IV famotidine for GI prophylaxis LINES: -Right subclavian central line placed 09/27/2018 -Endotracheal intubation 10/14/2019 CC time 78 min excluding procedures
[2018-09-27] MEDS ORDERED: Midazolam 100 MG/100 ML Inj 100 MG/100 ML BAG IV.CONT PRN (13:14)
[2018-09-27] MEDS ORDERED: Sod Chloride 0.9% Inj 1,000 ML IV.SIG SCH (13:15)
--- NOTE | 2018-09-27 13:19 | P.PNID ---
Subjective Remarks: Patient transferred to intensive care unit. Had a seizure episode earlier. Apparently was awake before the seizure. Now intubated. No fever. White blood cell count down to normal. Urine culture has no growth at 48 hours. Blood culture has no growth. This is an 83-year-old white female who has history of diabetes mellitus. The patient was recently hospitalized at [facility] and treated for sepsis and UTI. The urine culture at the time grew ESBL Klebsiella. She was discharged on intravenous Invanz. The patient was discharged on 09/23/2018 and was to continue treatment for 7 days of the Invanz. She was brought for evaluation of altered mental status and worsening bilateral lower extremity edema and also edema of the upper extremities. The is at bedside. He tells me that she has more fluid than usual in the lower extremities and also upper extremities. The patient has history of congestive heart failure. She underwent placement of a pacemaker 2 years ago. It is reported that she had become unable to take care of her daily activities prior to admission to the hospital in [place]. The patient is currently unresponsive. Her white blood cell count is 10.2. Temperature is 94.7. She has a Polanco catheter in place. Urinalysis showed 55 white cells and the urine is cloudy. She also has renal insufficiency with estimated GFR of 21. She is reported to have had acute kidney disease when she was in the hospital in [facility]. Past Medical History: PAST MEDICAL HISTORY: Diabetes mellitus, GERD, hypertension, hypothyroidism, dementia. Allergies/Adverse Reactions: Allergies No Known Allergies Allergy (Verified 09/25/18 09:53) Objective Vital Signs 09/26/18 14:00 09/26/18 15:00 09/26/18 16:00 Temperature 97.3 F L Pulse Rate 80 87 86 Respiratory Rate 20 Blood Pressure 132/51 L Pulse Oximetry 97 09/26/18 17:00 09/26/18 18:00 09/26/18 19:00 Temperature Pulse Rate 90 80 80 Respiratory Rate Blood Pressure Pulse Oximetry 09/26/18 20:00 09/26/18 21:00 09/26/18 22:00 Temperature 97.0 F L Pulse Rate 79 80 78 Respiratory Rate 20 Blood Pressure 92/48 L Pulse Oximetry 94 L 09/26/18 23:00 09/27/18 00:00 09/27/18 01:00 Temperature 97.0 F L Pulse Rate 78 80 80 Respiratory Rate 16 Blood Pressure 101/46 L Pulse Oximetry 96 09/27/18 02:00 09/27/18 03:00 09/27/18 04:00 Temperature 97.2 F L Pulse Rate 78 82 78 Respiratory Rate 18 Blood Pressure 96/45 L Pulse Oximetry 98 09/27/18 05:00 09/27/18 06:00 09/27/18 07:00 Temperature Pulse Rate 79 79 79 Respiratory Rate Blood Pressure Pulse Oximetry 09/27/18 08:00 09/27/18 09:00 09/27/18 10:00 Temperature 97.4 F L Pulse Rate 80 78 74 Respiratory Rate 20 Blood Pressure 103/44 L Pulse Oximetry 98 09/27/18 11:00 09/27/18 12:00 09/27/18 12:17 Temperature 96.8 F L Pulse Rate 82 76 Respiratory Rate 20 Blood Pressure 115/44 L Pulse Oximetry 97 100 Intake & Output 09/26/18 09/27/18 09/27/18 18:59 06:59 18:59 Intake Total 2099 1000 / 1000 Output Total 100 / 100 100 / 100 Balance 1999 900 / 900 Weight 67.5 kg Intake: IV 2099 1000 / 1000 NS Inj 1,000 ML @ 42 mls/hr IV. 1000 / 1000 CONT .[id number] [facility] Rx#:[id number] INVanz Inj 500 MG In NS Inj 100 100 / 100 ML @ 200 mls/hr IV.SIG Q24H [facility] Rx#:[id number] NS Inj 1,000 ML @ 80 mls/hr IV. 1999 SIG .[id number] [facility] Rx#:[id number] Oral 0 / 0 Output: Urine Amount (Catheter) 100 / 100 100 / 100 Indwelling Urethral Catheter 100 / 100 100 / 100 Other: Date of Last Bowel Movement 09/26/18 09/26/18 09/27/18 # Incontinent Bowel Movements 2 09/25/18 11:15 Blood - Peripheral Aerobic Blood Culture - Preliminary No growth in 2 days 09/25/18 11:15 Blood - Peripheral Anaerobic Blood Culture - Preliminary No growth in 2 days 09/25/18 11:20 Blood - Peripheral Aerobic Blood Culture - Preliminary No growth in 2 days 09/25/18 11:20 Blood - Peripheral Anaerobic Blood Culture - Preliminary No growth in 2 days 09/25/18 10:40 Catheterized Urine Urine Culture - Final No growth in 48 hours 09/25/18 10:40 Nasal Wash Influenza Types A,B Antigen - Final Negative for FLU A and B antigen Infection due to influenza A or B cannot be ruled out since the antigen present in the sample may be below the detection limit of the test. Lab - Hematology Results 09/26/18 06:52 WBC 9.6 RBC 2.82 L Hgb 9.8 L Hct 29.0 L MCV 103.0 H MCH 34.8 H MCHC 33.8 RDW 17.0 Plt Count 118 L MPV 7.5 Neut % (Auto) 67.5 Lymph % (Auto) 22.4 [place] % (Auto) 5.5 Eos % (Auto) 3.2 Baso % (Auto) 1.4 Neut # (Auto) 6.5 Lymph # (Auto) 2.2 [place] # (Auto) 0.5 Eos # (Auto) 0.3 Baso # (Auto) 0.1 WBC Differential . Differential Comment Auto diff final Lab - Chemistry Results 09/25/18 09/25/18 09/26/18 19:55 23:31 04:59 Sodium 141 Potassium 4.4 D Chloride 115 H Carbon Dioxide 16.1 L Anion Gap 10 BUN 75 H Creatinine 2.26 H Estimated GFR 21 L POC Glucose 142 H 126 H Random Glucose 145 H Calcium 8.0 L Magnesium Ammonia 09/26/18 09/26/18 09/26/18 06:52 06:52 12:03 Sodium 144 Potassium 4.1 Chloride 117 H Carbon Dioxide 16.3 L Anion Gap 11 BUN 76 H Creatinine 2.23 H Estimated GFR 21 L POC Glucose 112 H Random Glucose 105 Calcium 7.9 L Magnesium 2.2 Ammonia 16 09/26/18 09/26/18 09/27/18 16:55 22:34 05:17 Sodium 145 Potassium 4.3 Chloride 119 H Carbon Dioxide 15.9 L Anion Gap 10 BUN 80 H Creatinine 2.47 H Estimated GFR 19 L POC Glucose 138 H 106 Random Glucose 94 Calcium 7.8 L Magnesium Ammonia 09/27/18 11:56 Sodium Potassium Chloride Carbon Dioxide Anion Gap BUN Creatinine Estimated GFR POC Glucose 108 Random Glucose Calcium Magnesium Ammonia Imaging: ITS Impressions Chest X-Ray 09/25/18 10:02 CONCLUSION: 1. Cardiomegaly with streaky perihilar and bibasilar opacities of unknown chronicity. This may represent scarring. 2. Both costophrenic angles appear mildly blunted which could indicate small effusions. Head CT 09/25/18 10:02 CONCLUSION: 1. Atrophy and chronic small vessel ischemic change. 2. No evidence of acute hemorrhage or infarction. . Abdomen/Bladder Ultrasound 09/27/18 00:00 CONCLUSION: 1. Atrophic right kidney 2. Increased left renal cortical echogenicity 3. No evidence of hydronephrosis Physical Exam: PHYSICAL EXAMINATION: GENERAL: Intubated and unresponsive. HEENT: The head is atraumatic. Extraocular movements cannot be fully assessed as the patient cannot cooperate. Oropharynx mucosa appears dry. NECK: Supple without adenopathy or swelling. LUNGS: Bilateral rhonchi. HEART: Regular S1 and S2 with a slight systolic murmur at the left sternal border. ABDOMEN: Bowel sounds diminished. Soft, no tenderness appreciated. EXTREMITIES: No clubbing or cyanosis. 1+ pitting edema of the lower extremities and 1+ pitting edema in the upper extremities. The edema extends to the thighs and hips. SKIN: No diffuse rash. PSYCHIATRIC: Unable to assess. Assessment and Plan - Plan IMPRESSION: 1. Urinary tract infection. 2. Probable sepsis. 3. Acute kidney disease. 4. Encephalopathy, likely related to infection and compounded by dementia. 5. Acute respiratory failure following seizure. 6. Potential for aspiration. RECOMMENDATIONS: 1. Discontinue ertapenem. 2. Start Zosyn adjusted for kidney function. 3. Monitor blood culture. 4. Monitor clinical status.
[2018-09-27 13:23] LABS: ABG Base Excess -12.7 mmol/L (-2-2); ABG PCO2 30 mmHg (38-42); ABG PO2 309 mmHG (61-120)
[2018-09-27 13:26] LABS: Baso # (Auto) 0.1 th/mm3 (0.0-0.2); Baso % (Auto) 0.9 % (0.0-2.0); Eos # (Auto) 0.2 th/mm3 (0.0-0.4); Hematocrit 26.9 % (35.0-46.0); Hemoglobin 9.1 gm/dL (11.6-15.3); Lymph # (Auto) 1.9 th/mm3 (1.0-4.8); Lymph % (Auto) 19.9 % (9.0-44.0); Mean Corpuscular HGB Conc 33.9 % (32.0-36.0); Mean Corpuscular Hemoglobin 34.8 pg (27.0-34.0); Mean Corpuscular Volume 102.7 fL (80.0-100.0); Mean Platelet Volume 7.9 fL (7.0-11.0); Mono # (Auto) 0.4 th/mm3 (0.0-0.9); Mono % (Auto) 4.2 % (0.0-8.0); Neut # (Auto) 7.1 th/mm3 (1.8-7.7); Platelet Count 102 th/mm3 (150-450); Red Blood Count 2.62 mil/mm3 (4.00-5.30); Red Cell Distribution Width 17.3 % (11.6-17.2); White Blood Count 9.7 th/mm3 (4.0-11.0)
[2018-09-27 13:45] LABS: Alanine Aminotransferase 11 U/L (10-53); Albumin 1.6 g/dL (3.4-5.0); Anion Gap 10 meq/L (5-15); Aspartate Aminotransferase 25 U/L (15-37); Blood Urea Nitrogen 82 mg/dL (7-18); Calcium 7.6 mg/dL (8.5-10.1); Carbon Dioxide 17.3 meq/L (21.0-32.0); Chloride 119 meq/L (98-107); Glomerular Filtration Rate 17 mL/min (>89); Glucose,Random 115 mg/dL (74-106); Potassium 4.3 meq/L (3.5-5.1); Sodium 146 meq/L (136-145)
[2018-09-27 13:47] LABS: Alkaline Phosphatase 111 U/L (45-117); Total Protein 4.5 g/dL (6.4-8.2)
--- NOTE | 2018-09-27 13:47 | XR ---
EXAM DATE: 09/27/2018 1:28 PM EST AGE/SEX: 83 years / Female INDICATIONS: Post intubation and line placement. CLINICAL DATA: This is the patient's subsequent encounter. Patient reports that signs and symptoms h ave been present for 3 days and indicates a pain score of Nonresponsive. MEDICAL/SURGICAL HISTORY: Non-responsive. Non-responsive. COMPARISON: C, CHEST 1V SINGLE AP, 09/25/2018. . FINDINGS: ETT at the level of clavicles. Left subclavian central line with tip in the proximal SVC. Stable dual lead pacemaker. Redemonstration of small bilateral pleural effusions and associated airspace disease at the lung bases. Cardiomediastinal contours are stable. Chronic changes in the left shoulder. [place] helio of the exam is unchanged. CONCLUSION: 1. ETT in good position. 2. Left subclavian central line in the proximal SVC. 3. Persistent small bilateral pleural effusions and associated airspace disease at the lung bases. Electronically signed by: Garcia Rinalid MD Board Certified Radiologist 09/27/2018 1:46 PM ANGELICA De Leon
[2018-09-27] MEDS: Sodium Bicarbonate 8.4% Inj 150 MEQ in Water for Inj, Sterile 850 ML IV.CONT SCH ×2 (13:56→20:41)
--- NOTE | 2018-09-27 14:31 | P.CONPAL ---
Consult Service: Palliative Care Requesting Physician: Nick Santana Reason for Consult: a. To assist with evaluation and management of symptoms including: Encephalopathy, shortness of breath, physical deconditioning b. To assist medical decision maker(s) with: better understanding of current medical conditions; weighing benefits/burdens of medical treatment options; making medical treatment decisions. Primary Care Provider: Rylan Mcknight History of Present Illness History of Present Illness: Mrs. Reid is an 83-year-old female with a medical history of diastolic congestive heart failure, coronary artery disease status post stent placement and pacemaker placement, hypercholesteremia, hypertension, hypothyroidism, insulin-dependent diabetes, dementia and recent urinary tract infection. Patient was brought to the emergency room on 09/25/2018 by her family for evaluation of change in mental status, weakness and lethargy. Patient was recently admitted and discharged from [facility] with initial complaint of acute encephalopathy and she was noted to have urinary tract infection with ESBL Klebsiella. Family reported in the emergency room that since patient had been discharged out of [facility] on 09/23/18, she has not been able to ambulate, and talk. ER course: * Vital signs: Temperature 96.5F, pulse 69, respirations 18, BP 115/56, O2 saturation 94% * Laboratory workup revealed WBC 10.5, hemoglobin 11.2, hematocrit 34.0, platelet count 138, PT 12.4, INR 1.2, APTT 40.6, sodium 138, potassium 5.6, BUN/ creatinine 74/2.28, random glucose 133, calcium 8.1, AST 35, ALT 14, ammonia 23 , troponin less than 0.02, BNP 246, total protein 5.6, albumin 1.9, lipase 61, TSH 4.330 * EKG showed sinus rhythm with possible left atrial enlargement moderate intraventricular conduction delay nonspecific ST and T wave abnormality. * Head CT revealed atrophy and chronic small vessel ischemic changes with no evidence of acute hemorrhage or infarction. * Chest x-ray revealed cardiomegaly with streaky.Bibasilar opacities of unknown chronicity which could be scarring and mildly blunted costophrenic angles which could indicate small effusions. * Echocardiogram showed normal left ventricular systolic function with an estimated ejection fraction of 55%. * Urinalysis showed moderate leukocyte esterase-culture indicated. Culture showing no growth in 48 hours. * Blood cultures collected-no growth in 48 hours. * Nasal wash-negative for flu a and B antigen. * [facility] Dr. Vanegas consulted on 09/25/18 for evaluation and management of patient with ESBL Klebsiella urinary tract infection, recommended to continue ertapenem, monitor urine and blood cultures. Wound care consulted on 09/26/18 to evaluate and manage pressure ulcer to sacral area. Speech therapy consulted, recommended n.p.o. Ultrasound of kidney/renal/bladder on revealed atrophic right kidney and increased left renal cortical echogenicity. Laboratory workup on 09/27/18 revealing sodium 146, potassium 4.3 , BUN/creatinine 82/2.62, calcium 7.6, total protein 4.5, albumin 1.6. Nephrology consulted on 09/27/18 for evaluation and management of patient with acute on chronic kidney disease. Palliative care consulted to assist with symptom management and establishment of goals of medical treatment. Patient developed convulsions and became unresponsive on 09/27/18, witnessed by his spouse. Tiara called and patient was noted to be unresponsive and hypotensive with a blood pressure of 66/40 and unable to protect her airway. Stat ABG revealed pH of 7.13, PCO2 37, base excess -15. She was emergently transferred [place] [facility] Critical care physician Dr. Jacobsen consulted on 09/27/18. 1 amp of bicarb was administered for severe metabolic acidosis and patient was started on a Levophed infusion. Patient was endotracheally intubated and put on mechanical ventilation. Clinical course complicated with encephalopathy, possible seizure, shortness of breath and failing renal function. Patient seen and examined in the room on MICU after coming from radiology for a head CT. Patient is intubated, sedated on mechanical ventilation. Midazolam infusion at 4 mg/h and patient is also on Levophed at 5 mcg/min. Discussion with patient spouse Jose Reid and son Brandon Reid. Chaplain Joseph Khoury also present during part of the meeting. Introduced palliative care and his role in symptom management and establishment of goals of medical treatment. Obtained psychosocial, past medical history and events leading to this hospitalization. Discussed treatment that has been provided for patient from time of admission. Allowed patient spouse to explain patient's sudden change prior to transfer to ICU. According to patient`s spouse, patient has never completed advanced directives. He states that he definitely knows what she would want from prior conversations they have had in the past. Patient`s spouse states that he has always wished that when his 's time of would come, she would be home with him. He also mentioned that he would not want his to be on life support for a prolonged period of time. Patient spouse states that he has been told several times with the patient's physicians that she has a very weak heart. Addressed CODE STATUS, discussed CPR limitations, benefits and complications. Patient spouse with the support of his son Brandon electzay Do not resuscitate. Patient's family at this time would like to allow some time to figure out what is going on with the patient. Anticipatory guidance provided. Family requested to know what to expect if patient continues to deteriorate or if she does better. Discussed process which would lead to medical extubation if patient shows clinical improvement. Also discussed decisions that may need to be made, if patient continues to deteriorate. Broached hospice topic, which family seemed interested with. Briefly discussed compassionate withdrawal from life support. At this time goals remain aggressive, with family hopeful for recovery though they are realistic that this may not be the case. Palliative care contact information provided to family members. . Function/Cognitive Trajectory: Patient resides at home with her spouse. Prior to hospitalization patient has been able to ambulate with a walker for the past 3 years. Patient required assistance with all her ADLs including bathing, toileting. Patient was incontinent of bladder. Since discharge from recent hospitalization [facility] on 09/23/18 patient has required total assistance with all his ADLs including feeding. Per , patient is very forgetful but since a month ago she has been more confused. . Review of Systems Constitutional: Reports fatigue, Reports lack of energy, Reports weakness, Denies increased appetite, Denies weight loss Eyes: Denies bulging eyes Ears, Nose, Mouth, and Throat: Denies tongue swelling Cardiovascular: Reports foot swelling, Reports shortness of breath Respiratory: Reports shortness of breath Gastrointestinal: Denies black, tarry stools, Denies loose stools, Denies nausea , Denies vomiting Genitourinary: Reports blood in urine, Reports urinary incontinence Musculoskeletal: Reports abnormal walking Skin/Breast: Reports skin ulcer (Sacral and multiple skin tears), Reports unusual bruising Neurologic: Reports confusion, Reports unsteadiness, Reports weakness, Denies frequent falls Psychiatric: Reports change in appetite (Decreased), Reports confusion, Reports memory loss Endocrine: Denies increased hunger Hematologic/Lymphatic: Reports easy bruising Review of systems obtained from electronic medical record and family. . [facility] - History History Provided By: Family Member, Medical Record - Medical History Medical History: Medical History (Last Reviewed 09/27/18 @ 13:33 by Monica Jacobsen MD) Dementia Diabetes Gout Hypercholesteremia Hypertension Hypothyroid Medical history unknown Surgical history unknown - Surgical History Surgical History: Surgical History (Last Updated 09/27/18 @ 16:41 by Kay Gibson) History of permanent cardiac pacemaker placement - Family History Family History: Family History (Last Updated 09/27/18 @ 16:42 by Kay Gibson) Other Has 4 children - Social History I have reviewed the patient's Social History: Yes - Tobacco History Second Hand Smoke Exposure: No Smoking Status: Never smoker - Alcohol History How Often Do You Have a Drink Containing Alcohol: 2 to 4 times a month - Substance Use History Substance History: No History of Abuse - Travel History Recent Travel in the [place] Within the Last 8 Weeks: No Recent Travel Out of the Country Within the Last 8 Weeks: No - Immunization History Tetanus Immunization: Unsure Medications and Allergies Active Medications: Active Medications Amlodipine Besylate (Norvasc) 5 mg PO DAILY [facility] Last Admin: 09/27/18 11:52 Dose: Not Given Aspirin (Aspirin Chew) 81 mg PO DAILY [facility] Last Admin: 09/27/18 08:37 Dose: 81 mg Atorvastatin Calcium (Lipitor) 20 mg PO HS [facility] Last Admin: 09/27/18 00:10 Dose: 20 mg Carvedilol (Coreg) 12.5 mg PO BID [facility] Last Admin: 09/27/18 08:37 Dose: 12.5 mg Clopidogrel Bisulfate (Plavix) 75 mg PO DAILY [facility] Last Admin: 09/27/18 08:37 Dose: 75 mg Famotidine (Pepcid Pf Inj) 20 mg IV.PUSH Q12HR [facility] Hydralazine HCl (Apresoline Inj) 10 mg IV.PUSH Q4H PRN PRN Reason: BLOOD PRESSURE MANAGEMENT Sodium Chloride (Ns Inj) 1,000 mls @ 1,000 mls/hr IV.SIG BOLUS [facility] Stop: 09/27/18 14:14 Sodium Bicarbonate 150 meq/ (Sterile Water) 1,000 mls @ 150 mls/hr IV.CONT .Q6H40M MAMI Midazolam HCl (Versed Inj) 100 mg in 100 mls @ 2 mls/hr IV.CONT TITRATE PRN; Protocol PRN Reason: See protocol Piperacillin/Tazobactam/Dextrose (Zosyn 2.25 Gm Premix) 50 mls @ 100 mls/hr IV.SIG Q8H [facility] Levothyroxine Sodium (Synthroid) 50 mcg PO DAILY@0600 [facility] Last Admin: 09/27/18 06:35 Dose: 50 mcg Sodium Chloride (Ns Flush) 2 ml IV.FLUSH BID [facility] Last Admin: 09/27/18 08:38 Dose: Not Given Sodium Chloride (Ns Flush) 2 ml IV.FLUSH PRN PRN PRN Reason: FLUSH AFTER USING IV ACCESS Allergies Allergy/AdvReac Type Severity Reaction Status Date / Time No Known Allergies Allergy Verified 09/25/18 09:53 Home Medications Medication Instructions Recorded Confirmed Type allopurinol 300 mg PO DAILY 09/25/18 09/25/18 History aspirin [Aspir-81] 81 mg PO DAILY 09/25/18 09/25/18 History carvedilol 12.5 mg PO BID 09/25/18 09/25/18 History clopidogrel [Plavix] 75 mg PO DAILY 09/25/18 09/25/18 History ferrous sulfate 325 mg PO DAILY 09/25/18 09/25/18 History furosemide 40 mg PO DAILY 09/25/18 09/25/18 History insulin glargine [Lantus U-100 15 unit SUBCUT DAILY 09/25/18 09/25/18 History Insulin] levothyroxine 50 mcg PO DAILY 09/25/18 09/25/18 History lovastatin 20 mg PO DAILY 09/25/18 09/25/18 History potassium chloride 10 meq PO DAILY 09/25/18 09/25/18 History sucralfate 1 g PO ACHS 09/25/18 09/25/18 History Advance Directives Living Will: No Healthcare Surrogate: No Health Care Surrogate Name and Number: HCP:Spouse Jose Reid [phone] Power of Planting Machine Operator: No Today's verbally stated goals: Patient has never completed advance directives. . Family/friends goals: Family is hopeful that patient will medically show improvement and will be medically extubated. . Ethical and Legal Issues: None identified at this time. . Physical Exam Vital Signs: Vital Signs - 24 hr 09/26/18 14:00 09/26/18 15:00 09/26/18 16:00 Temperature 97.3 F L Pulse Rate 80 87 86 Respiratory Rate 20 Blood Pressure 132/51 L Pulse Oximetry 97 09/26/18 17:00 09/26/18 18:00 09/26/18 19:00 Temperature Pulse Rate 90 80 80 Respiratory Rate Blood Pressure Pulse Oximetry 09/26/18 20:00 09/26/18 21:00 09/26/18 22:00 Temperature 97.0 F L Pulse Rate 79 80 78 Respiratory Rate 20 Blood Pressure 92/48 L Pulse Oximetry 94 L 09/26/18 23:00 09/27/18 00:00 09/27/18 01:00 Temperature 97.0 F L Pulse Rate 78 80 80 Respiratory Rate 16 Blood Pressure 101/46 L Pulse Oximetry 96 09/27/18 02:00 09/27/18 03:00 09/27/18 04:00 Temperature 97.2 F L Pulse Rate 78 82 78 Respiratory Rate 18 Blood Pressure 96/45 L Pulse Oximetry 98 09/27/18 05:00 09/27/18 06:00 09/27/18 07:00 Temperature Pulse Rate 79 79 79 Respiratory Rate Blood Pressure Pulse Oximetry 09/27/18 08:00 09/27/18 09:00 09/27/18 10:00 Temperature 97.4 F L Pulse Rate 80 78 74 Respiratory Rate 20 Blood Pressure 103/44 L Pulse Oximetry 98 09/27/18 11:00 09/27/18 12:00 09/27/18 12:17 Temperature 96.8 F L Pulse Rate 82 76 Respiratory Rate 20 Blood Pressure 115/44 L Pulse Oximetry 97 100 09/27/18 13:12 Temperature Pulse Rate Respiratory Rate 20 Blood Pressure Pulse Oximetry 100 I&O: Intake & Output 09/25/18 09/26/18 09/27/18 09/28/18 06:59 06:59 06:59 06:59 Intake Total 1600 / 1600 3100 / 3100 Output Total 400 / 400 200 / 200 Balance 1200 / 1200 2900 / 2900 Weight 77 kg 67.5 kg Physical Exam: CONSTITUTIONAL/GENERAL: This is an elderly patient in no acute distress. TUBES/LINES/DRAINS: ETT, right nare NG tube, right subclavian triple-lumen catheter, Polanco catheter SKIN: No jaundice. Ecchymoses on upper extremities. Skin tears to upper extremities. Sacral decubitus ulcer. Skin temperature appropriate. Not diaphoretic. HEAD: Atraumatic. Normocephalic. EYES: Pupils equal and round and reactive. Extraocular motions intact. No scleral icterus. No injection or drainage. Fundi not examined. ENT: Hearing grossly normal. Nose without bleeding or purulent drainage. Endotracheally intubated. NECK: Trachea midline. Supple, nontender. CARDIOVASCULAR: Regular rate and rhythm without murmurs, gallops, or rubs. No JVD. Peripheral pulses symmetric. RESPIRATORY/CHEST: Symmetric, unlabored respirations. Clear to auscultation. Breath sounds equal bilaterally. No wheezes, rales, or rhonchi. GASTROINTESTINAL: Abdomen obese, soft, non-tender, nondistended. No guarding. Bowel sounds present. GENITOURINARY: Without palpable bladder distension. Polanco catheter in place. MUSCULOSKELETAL: Extremities without clubbing, cyanosis, or edema. No joint tenderness or effusion noted. No calf tenderness. No mottling or clubbing. LYMPHATICS: Did not assess NEUROLOGICAL: Intubated, sedated on mechanical ventilation. PSYCHIATRIC: Unable to assess. Diagnostic Tests Laboratory: Laboratory Results - last 72 hr 09/25/18 09/25/18 09/25/18 10:18 10:18 10:18 WBC 10.5 RBC 3.25 L Hgb 11.2 L Hct 34.0 L MCV 104.4 H MCH 34.4 H MCHC 32.9 RDW 17.4 H Plt Count 138 L MPV 7.8 Neut % (Auto) 63.6 Lymph % (Auto) 27.2 [place] % (Auto) 5.2 Eos % (Auto) 3.1 Baso % (Auto) 0.9 Neut # (Auto) 6.7 Lymph # (Auto) 2.9 [place] # (Auto) 0.5 Eos # (Auto) 0.3 Baso # (Auto) 0.1 WBC Differential . Differential Comment Auto diff final PT INR APTT Puncture Site Patient Temperature O2 Saturation ABG pH ABG pCO2 ABG pO2 ABG HCO3 ABG O2 Content ABG Base Excess ABG Methemoglobin Niels Test Hemoglobin Carboxyhemoglobin O2 Delivery Device Liter Flow Vent Setting Inspired O2 Critical Value Sodium 138 Potassium 5.6 H Chloride 114 H Carbon Dioxide 15.6 L Anion Gap 8 BUN 74 H Creatinine 2.28 H Estimated GFR 21 L POC Glucose Random Glucose 133 H Lactic Acid 1.4 Calcium 8.1 L Magnesium 2.3 Total Bilirubin 0.5 AST 35 ALT 14 Alkaline Phosphatase 152 H Ammonia Total Creatine Kinase 118 CK-MB (CK-2) 1.3 Troponin I Less than 0.02 L B-Natriuretic Peptide Total Protein 5.6 L Albumin 1.9 L Lipase 61 L TSH 4.330 H Urine Color Urine Clarity Urine pH Ur Specific [place] Urine Protein Urine Glucose (UA) Urine Ketones Urine Occult Blood Urine Nitrate Urine Bilirubin Urine Urobilinogen Ur Leukocyte Esterase Urine RBC Urine WBC Urine WBC Clumps Ur Squamous Epith Cells Amorphous Sediment Urine Bacteria Hyaline Casts Urine Mucus Micro UA Comment Ur Microscopic Review Urine Culture Comments 09/25/18 09/25/18 09/25/18 10:18 10:18 10:40 WBC RBC Hgb Hct MCV MCH MCHC RDW Plt Count MPV Neut % (Auto) Lymph % (Auto) [place] % (Auto) Eos % (Auto) Baso % (Auto) Neut # (Auto) Lymph # (Auto) [place] # (Auto) Eos # (Auto) Baso # (Auto) WBC Differential Differential Comment PT INR APTT Puncture Site Patient Temperature O2 Saturation ABG pH ABG pCO2 ABG pO2 ABG HCO3 ABG O2 Content ABG Base Excess ABG Methemoglobin Niels Test Hemoglobin Carboxyhemoglobin O2 Delivery Device Liter Flow Vent Setting Inspired O2 Critical Value Sodium Potassium Chloride Carbon Dioxide Anion Gap BUN Creatinine Estimated GFR POC Glucose Random Glucose Lactic Acid Calcium Magnesium Total Bilirubin AST ALT Alkaline Phosphatase Ammonia 23 Total Creatine Kinase CK-MB (CK-2) Troponin I B-Natriuretic Peptide 246 H Total Protein Albumin Lipase TSH Urine Color Yellow Urine Clarity Cloudy H Urine pH 5.0 Ur Specific [place] 1.012 Urine Protein 100 H Urine Glucose (UA) 50 Urine Ketones Negative Urine Occult Blood Moderate H Urine Nitrate Negative Urine Bilirubin Negative Urine Urobilinogen Less than 2 Ur Leukocyte Esterase Moderate H Urine RBC 30 H Urine WBC 55 H Urine WBC Clumps Few H Ur Squamous Epith Cells 1 Amorphous Sediment Many H Urine Bacteria Moderate H Hyaline Casts 19 Urine Mucus Few H Micro UA Comment Cath-culture ind Ur Microscopic Review Not Reportable Urine Culture Comments Cath-cult indicated 09/25/18 09/25/18 09/25/18 11:20 19:55 23:31 WBC RBC Hgb Hct MCV MCH MCHC RDW Plt Count MPV Neut % (Auto) Lymph % (Auto) [place] % (Auto) Eos % (Auto) Baso % (Auto) Neut # (Auto) Lymph # (Auto) [place] # (Auto) Eos # (Auto) Baso # (Auto) WBC Differential Differential Comment PT 12.4 H INR 1.2 APTT 40.6 H Puncture Site Patient Temperature O2 Saturation ABG pH ABG pCO2 ABG pO2 ABG HCO3 ABG O2 Content ABG Base Excess ABG Methemoglobin Niels Test Hemoglobin Carboxyhemoglobin O2 Delivery Device Liter Flow Vent Setting Inspired O2 Critical Value Sodium 141 Potassium 4.4 D Chloride 115 H Carbon Dioxide 16.1 L Anion Gap 10 BUN 75 H Creatinine 2.26 H Estimated GFR 21 L POC Glucose 142 H Random Glucose 145 H Lactic Acid Calcium 8.0 L Magnesium Total Bilirubin AST ALT Alkaline Phosphatase Ammonia Total Creatine Kinase CK-MB (CK-2) Troponin I B-Natriuretic Peptide Total Protein Albumin Lipase TSH Urine Color Urine Clarity Urine pH Ur Specific [place] Urine Protein Urine Glucose (UA) Urine Ketones Urine Occult Blood Urine Nitrate Urine Bilirubin Urine Urobilinogen Ur Leukocyte Esterase Urine RBC Urine WBC Urine WBC Clumps Ur Squamous Epith Cells Amorphous Sediment Urine Bacteria Hyaline Casts Urine Mucus Micro UA Comment Ur Microscopic Review Urine Culture Comments 09/26/18 09/26/18 09/26/18 04:59 06:52 06:52 WBC 9.6 RBC 2.82 L Hgb 9.8 L Hct 29.0 L MCV 103.0 H MCH 34.8 H MCHC 33.8 RDW 17.0 Plt Count 118 L MPV 7.5 Neut % (Auto) 67.5 Lymph % (Auto) 22.4 [place] % (Auto) 5.5 Eos % (Auto) 3.2 Baso % (Auto) 1.4 Neut # (Auto) 6.5 Lymph # (Auto) 2.2 [place] # (Auto) 0.5 Eos # (Auto) 0.3 Baso # (Auto) 0.1 WBC Differential . Differential Comment Auto diff final PT INR APTT Puncture Site Patient Temperature O2 Saturation ABG pH ABG pCO2 ABG pO2 ABG HCO3 ABG O2 Content ABG Base Excess ABG Methemoglobin Niels Test Hemoglobin Carboxyhemoglobin O2 Delivery Device Liter Flow Vent Setting Inspired O2 Critical Value Sodium Potassium Chloride Carbon Dioxide Anion Gap BUN Creatinine Estimated GFR POC Glucose 126 H Random Glucose Lactic Acid Calcium Magnesium Total Bilirubin AST ALT Alkaline Phosphatase Ammonia 16 Total Creatine Kinase CK-MB (CK-2) Troponin I B-Natriuretic Peptide Total Protein Albumin Lipase TSH Urine Color Urine Clarity Urine pH Ur Specific [place] Urine Protein Urine Glucose (UA) Urine Ketones Urine Occult Blood Urine Nitrate Urine Bilirubin Urine Urobilinogen Ur Leukocyte Esterase Urine RBC Urine WBC Urine WBC Clumps Ur Squamous Epith Cells Amorphous Sediment Urine Bacteria Hyaline Casts Urine Mucus Micro UA Comment Ur Microscopic Review Urine Culture Comments 09/26/18 09/26/18 09/26/18 06:52 12:03 16:55 WBC RBC Hgb Hct MCV MCH MCHC RDW Plt Count MPV Neut % (Auto) Lymph % (Auto) [place] % (Auto) Eos % (Auto) Baso % (Auto) Neut # (Auto) Lymph # (Auto) [place] # (Auto) Eos # (Auto) Baso # (Auto) WBC Differential Differential Comment PT INR APTT Puncture Site Patient Temperature O2 Saturation ABG pH ABG pCO2 ABG pO2 ABG HCO3 ABG O2 Content ABG Base Excess ABG Methemoglobin Niels Test Hemoglobin Carboxyhemoglobin O2 Delivery Device Liter Flow Vent Setting Inspired O2 Critical Value Sodium 144 Potassium 4.1 Chloride 117 H Carbon Dioxide 16.3 L Anion Gap 11 BUN 76 H Creatinine 2.23 H Estimated GFR 21 L POC Glucose 112 H 138 H Random Glucose 105 Lactic Acid Calcium 7.9 L Magnesium 2.2 Total Bilirubin AST ALT Alkaline Phosphatase Ammonia Total Creatine Kinase CK-MB (CK-2) Troponin I B-Natriuretic Peptide Total Protein Albumin Lipase TSH Urine Color Urine Clarity Urine pH Ur Specific [place] Urine Protein Urine Glucose (UA) Urine Ketones Urine Occult Blood Urine Nitrate Urine Bilirubin Urine Urobilinogen Ur Leukocyte Esterase Urine RBC Urine WBC Urine WBC Clumps Ur Squamous Epith Cells Amorphous Sediment Urine Bacteria Hyaline Casts Urine Mucus Micro UA Comment Ur Microscopic Review Urine Culture Comments 09/26/18 09/27/18 09/27/18 22:34 05:17 11:56 WBC RBC Hgb Hct MCV MCH MCHC RDW Plt Count MPV Neut % (Auto) Lymph % (Auto) [place] % (Auto) Eos % (Auto) Baso % (Auto) Neut # (Auto) Lymph # (Auto) [place] # (Auto) Eos # (Auto) Baso # (Auto) WBC Differential Differential Comment PT INR APTT Puncture Site Patient Temperature O2 Saturation ABG pH ABG pCO2 ABG pO2 ABG HCO3 ABG O2 Content ABG Base Excess ABG Methemoglobin Niels Test Hemoglobin Carboxyhemoglobin O2 Delivery Device Liter Flow Vent Setting Inspired O2 Critical Value Sodium 145 Potassium 4.3 Chloride 119 H Carbon Dioxide 15.9 L Anion Gap 10 BUN 80 H Creatinine 2.47 H Estimated GFR 19 L POC Glucose 106 108 Random Glucose 94 Lactic Acid Calcium 7.8 L Magnesium Total Bilirubin AST ALT Alkaline Phosphatase Ammonia Total Creatine Kinase CK-MB (CK-2) Troponin I B-Natriuretic Peptide Total Protein Albumin Lipase TSH Urine Color Urine Clarity Urine pH Ur Specific [place] Urine Protein Urine Glucose (UA) Urine Ketones Urine Occult Blood Urine Nitrate Urine Bilirubin Urine Urobilinogen Ur Leukocyte Esterase Urine RBC Urine WBC Urine WBC Clumps Ur Squamous Epith Cells Amorphous Sediment Urine Bacteria Hyaline Casts Urine Mucus Micro UA Comment Ur Microscopic Review Urine Culture Comments 09/27/18 09/27/18 09/27/18 12:23 13:03 13:03 WBC 9.7 RBC 2.62 L Hgb 9.1 L Hct 26.9 L MCV 102.7 H MCH 34.8 H MCHC 33.9 RDW 17.3 H Plt Count 102 L MPV 7.9 Neut % (Auto) 73.0 H Lymph % (Auto) 19.9 [place] % (Auto) 4.2 Eos % (Auto) 2.0 Baso % (Auto) 0.9 Neut # (Auto) 7.1 Lymph # (Auto) 1.9 [place] # (Auto) 0.4 Eos # (Auto) 0.2 Baso # (Auto) 0.1 WBC Differential . Differential Comment Auto diff final PT INR APTT Puncture Site Right radial Patient Temperature 98.6 O2 Saturation 97 ABG pH 7.13 L* ABG pCO2 37 L ABG pO2 256 H ABG HCO3 12 L* ABG O2 Content 13.6 ABG Base Excess -15.4 L ABG Methemoglobin 1.6 Niels Test Present Hemoglobin 9.6 L Carboxyhemoglobin 1.1 O2 Delivery Device Nrb Liter Flow 15.00 Vent Setting Inspired O2 Critical Value Yes Sodium Potassium Chloride Carbon Dioxide Anion Gap BUN Creatinine Estimated GFR POC Glucose Random Glucose Lactic Acid 2.4 H Calcium Magnesium Total Bilirubin AST ALT Alkaline Phosphatase Ammonia Total Creatine Kinase CK-MB (CK-2) Troponin I B-Natriuretic Peptide Total Protein Albumin Lipase TSH Urine Color Urine Clarity Urine pH Ur Specific [place] Urine Protein Urine Glucose (UA) Urine Ketones Urine Occult Blood Urine Nitrate Urine Bilirubin Urine Urobilinogen Ur Leukocyte Esterase Urine RBC Urine WBC Urine WBC Clumps Ur Squamous Epith Cells Amorphous Sediment Urine Bacteria Hyaline Casts Urine Mucus Micro UA Comment Ur Microscopic Review Urine Culture Comments 09/27/18 13:18 WBC RBC Hgb Hct MCV MCH MCHC RDW Plt Count MPV Neut % (Auto) Lymph % (Auto) [place] % (Auto) Eos % (Auto) Baso % (Auto) Neut # (Auto) Lymph # (Auto) [place] # (Auto) Eos # (Auto) Baso # (Auto) WBC Differential Differential Comment PT INR APTT Puncture Site Left radial Patient Temperature 98.6 O2 Saturation 97 ABG pH 7.26 L* ABG pCO2 30 L ABG pO2 309 H ABG HCO3 13 L* ABG O2 Content 13.2 ABG Base Excess -12.7 L ABG Methemoglobin 1.8 Niels Test Present Hemoglobin 9.1 L Carboxyhemoglobin 1.1 O2 Delivery Device Ventilator Liter Flow Vent Setting Prvc/ac 450/20 Inspired O2 60 Critical Value Yes Sodium Potassium Chloride Carbon Dioxide Anion Gap BUN Creatinine Estimated GFR POC Glucose Random Glucose Lactic Acid Calcium Magnesium Total Bilirubin AST ALT Alkaline Phosphatase Ammonia Total Creatine Kinase CK-MB (CK-2) Troponin I B-Natriuretic Peptide Total Protein Albumin Lipase TSH Urine Color Urine Clarity Urine pH Ur Specific Orient Urine Protein Urine Glucose (UA) Urine Ketones Urine Occult Blood Urine Nitrate Urine Bilirubin Urine Urobilinogen Ur Leukocyte Esterase Urine RBC Urine WBC Urine WBC Clumps Ur Squamous Epith Cells Amorphous Sediment Urine Bacteria Hyaline Casts Urine Mucus Micro UA Comment Ur Microscopic Review Urine Culture Comments Result Diagrams: 09/27/18 13:03 09/27/18 13:03 Microbiology: Microbiology 09/25/18 11:15 Aerobic Blood Culture - Preliminary Blood - Peripheral No growth in 2 days Anaerobic Blood Culture - Preliminary No growth in 2 days 09/25/18 11:20 Aerobic Blood Culture - Preliminary Blood - Peripheral No growth in 2 days Anaerobic Blood Culture - Preliminary No growth in 2 days 09/25/18 10:40 Urine Culture - Final Catheterized Urine No growth in 48 hours 09/25/18 10:40 Influenza Types A,B Antigen - Final Nasal Wash Negative for FLU A and B antigen Infection due to influenza A or B cannot be ruled out since the antigen present in the sample may be below the detection limit of the test. Imaging: Abdomen/Bladder Ultrasound 09/27/18 00:00 CONCLUSION: 1. Atrophic right kidney 2. Increased left renal cortical echogenicity 3. No evidence of hydronephrosis Chest X-Ray 09/27/18 12:54 CONCLUSION: 1. ETT in good position. 2. Left subclavian central line in the proximal SVC. 3. Persistent small bilateral pleural effusions and associated airspace disease at the lung bases. Head CT 09/27/18 12:55 CONCLUSION: 1. Stable appearance with no acute hemorrhage, mass or infarction. 2. Atrophy and chronic small vessel ischemic changes. 3. Mild sinusitis. . Procedures: 09/27/2018-endotracheal intubation 09/27/[id number] catheter right subclavian placement Patient/Family Conference Present at Family Conference: Jl-Jeanette, Jose Son- Brandon Reid" Mortgage ManagerPeng Shipley Family Conference Location: Bedside, Consult Room Issues Discussed: * Palliative care role, purpose, approach * Additional medical, psychosocial, and spiritual history * Patients general health, functional status, and cognitive changes in the months leading up to the current hospitalization * Patient/family understanding of the current medical problems * Patient/family understanding of prognosis * Patients goals of care as best understood from advance directives and/or conversations and/or values * Current medical treatment options and benefits/burdens of those options * Likely scenarios comparing ongoing aggressive care with a transition to comfort measures only * Questions answered to the best of my ability * Introduce hospice philosophy and benefits. * Palliative care contact information provided Assessment and Plan - Disease Oriented Problem List (1) Acute respiratory failure (2) Sepsis (3) Acute kidney injury (4) UTI (urinary tract infection) (5) Congestive heart failure - Symptom Scale (1) Shortness of breath Comment: Patient has history of CHF. Patient went into acute respiratory failure after probable seizure, requiring intubation on 09/27/18. (2) Altered mental status 0-10 Scale: Unable to quantify Comment: Patient has a history of dementia but he had worsening altered mental status status since 3 weeks ago. (3) Physical deconditioning 0-10 Scale: Unable to quantify Comment: Progressive. Pertinent Non-Medical Issues: Psychosocial: Patient is originally from [place], [place]. Patient and his spouse used to be snowbirds for 25 years. They permanently moved to [place] about 4-5 years ago. She has been to her spouse for 62 years. They have 4 adult children, 3 sons Brandon Reid, Pablo Reid, Carlos Reid daughter Radha Moore and grandchildren. 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 Ethical issues impacting care: None identified at this time. . Important Contacts: Spouse-Jose Reid [phone] Son-Brandon Ried [phone] Grandson-Roderick Reid [phone] Prognosis: Mrs. Reid is an 83-year-old female with a medical history of diastolic congestive heart failure, coronary artery disease status post stent placement and pacemaker placement, hypercholesteremia, hypertension, hypothyroidism, insulin-dependent diabetes, dementia and recent urinary tract infection. Patient was brought to the emergency room on 09/25/2018 by her family for evaluation of change in mental status, weakness and lethargy. Clinical course complicated with encephalopathy, possible seizure, shortness of breath, and failing renal function. Given multiple ongoing comorbidities, patient remains at high risk for further complications, deterioration and decline. Code Status: No Code DNR Plan: PLAN: Legal decision maker: Patient is intubated, sedated on mechanical ventilation. It is not known whether patient will ever regain capacity to make medical decisions for himself. According to [place] statute, his spouse Jeanette Garcia would serve as her healthcare proxy. Goals: Aggressive short of no code. Patient`s spouse with the support of his son Brandon electzay Do not resuscitate. Patient's family at this time would like to allow some time to figure out what is going on with the patient. Anticipatory guidance provided. Family requested to know what to expect if patient continues to deteriorate or if she does better. Discussed process which would lead to medical extubation if patient shows clinical improvement. Also discussed decisions that may need to be made, if patient continues to deteriorate. Broached hospice topic, which family seemed interested with. Briefly discussed compassionate withdrawal from life support. At this time goals remain aggressive, with family hopeful for recovery though they are realistic that this may not be the case. CODE STATUS: No code DNR SYMPTOMS: * Shortness of breath: Patient has history of CHF. Patient went into acute respiratory failure after probable seizure, requiring intubation on 09/27/18. She had witnessed convulsions, possible seizures. ABG revealed severe metabolic acidosis. Patient intubated on 09/27/18 * Altered mental status: Patient has history of dementia and was recently being treated for urinary tract infection. Head CT revealed brain atrophy. MRI pending * Physical deconditioning: Progressive. Patient has been hospitalized twice in the past 3 weeks. Since the last hospitalization patient has been debilitated to the point of not being able to ambulate and requiring total assistance with all ADLs. If goals would remain aggressive, patient would benefit from physical therapy. Palliative care will continue to follow the patient during hospital course as condition evolves, to assist patient/decision-maker with understanding of their medical conditions, weighing benefits/burdens of treatment options, for clarification of goals of treatment. Additionally will assist with any symptoms of palliative concern Appreciation Thank you for the opportunity to participate in the care of Rosibel Reid. Attestation Attestation: To help prompt me to consider important information that might be impacting today's encounter and assessment, information from prior notes written by myself or my colleagues may have been "brought forward" into today's note. My signature on this note, however, is an attestation that I personally performed the exam, history, and/or decision-making noted today, and, unless otherwise indicated, the interactions with patient, family, and staff as well as the review of records all occurred today. I also attest that the listed assessment and stated plan reflect my best clinical judgment today based on the combination of historical information, prior notes, and today's exam/ interactions. When time spent is documented, it refers only to time spent today by the signer, or if indicated, combined time spent today by collaborating physician/nurse practitioner.
--- NOTE | 2018-09-27 14:47 | CT ---
EXAM DATE: 09/27/2018 2:43 PM EST AGE/SEX: 83 years / Female INDICATIONS: Seizures CLINICAL DATA: This is the patient's initial encounter. Patient reports that signs and symptoms have been present for 1 day and indicates a pain score of 4/10. MEDICAL/SURGICAL HISTORY: Dementia. Diabetes. Hypertension. None. RADIATION DOSE: 34.26 CTDI (mGy) COMPARISON: [facility] [place], CT HEAD W/O CONTRAST, 09/25/2018. . TECHNIQUE: CT of the head without contrast. Using automated exposure control and adjustment of the mA and/or kV according to patient size, radiation dose was kept as low as reasonably achievable to ob tain optimal diagnostic quality images. DICOM format image data is available electronically for revi ew and comparison. FINDINGS: Cerebrum: The ventricles are normal for age with mild to moderate atrophy and chronic small vessel i schemic changes. No evidence of midline shift, mass lesion, hemorrhage or acute infarction. No extra axial fluid collections are seen. Posterior Fossa: The cerebellum and brainstem are intact. The 4th ventricle is midline. The cerebe llopontine angle is unremarkable. Extracranial: The visualized portion of the orbits is intact. There is mild mucosal thickening in th e ethmoidal air cells and right maxillary sinus. Skull: The calvaria is intact. No evidence of skull fracture. CONCLUSION: 1. Stable appearance with no acute hemorrhage, mass or infarction. 2. Atrophy and chronic small vessel ischemic changes. 3. Mild sinusitis. . Electronically signed by: Rivera Hardin MD Board Certified Radiologist 09/27/2018 2:46 PM EST
--- NOTE | 2018-09-27 15:09 | MB ---
cc: Александр Colon DO DATE: 09/27/2018 REASON FOR CONSULTATION: Need for MRI with a history of pacemaker. HISTORY OF PRESENT ILLNESS: Rosibel Reid is an 83-year-old female who was recently discharged from [facility] with an ESBL Klebsiella urinary tract infection. During the hospitalization, the patient had acute encephalopathy, which was thought to be due to the UTI. Apparently, she was supposed to go home on antibiotics and while at home, she started getting more weak and so we brought her into the emergency room for further evaluation. She has had no fevers or chills. She was seen by Infectious Disease, who recommended continuing her on antibiotics. She was also seen by Infectious Disease who placed her on antibiotics. There was a plan for an MRI of the head by Dr. Santana. Dr. Santana was attempting to get an MRI of the head due to her overall weakness and acute encephalopathy. Because she had a pacemaker, I was asked to see her for further recommendations. In talking to the , she has a Medtronic pacemaker and this was placed 2 years ago due to her heart rates fluctuating too much. In discussing with the , apparently the pacemaker was placed by a surgeon and they told her that it did not need to be checked just that if her heart rate was too low, then they need to get it further checked and so her pacemaker has not been interrogated in 2 years per the . PAST MEDICAL HISTORY: 1. Dementia. 2. Diabetes. 3. Gout. 4. Hyperlipidemia. 5. Hypertension. 6. Hypothyroidism. PAST SURGICAL HISTORY: Medtronic pacemaker placement. ALLERGIES: NO KNOWN DRUG ALLERGIES. MEDICATIONS: 1. Lovastatin 20 mg daily. 2. Lantus 15 units daily. 3. Synthroid 50 mcg daily. 4. Lasix 40 mg daily. 5. Iron 325 mg daily. 6. Plavix 75 mg daily. 7. Coreg 12.5 mg b.i.d. 8. Allopurinol 300 mg daily. 9. Potassium 10 mEq daily. 10. Aspirin 81 mg daily. FAMILY HISTORY: No known sudden cardiac within the family. SOCIAL HISTORY: Denies tobacco, alcohol or drug abuse. REVIEW OF SYSTEMS: Unable to obtain full review of systems but does not appear to have any chest pain or shortness of breath. PHYSICAL EXAMINATION: VITAL SIGNS: Temperature 97.4, heart rate 82, blood pressure 103/44, respirations 20, pulse oximetry 98% on room air. GENERAL: The patient is an elderly female lying in bed. She is somewhat lethargic, but opens her eyes to her name. HEENT: Extraocular muscles intact. Mucous membranes moist. NECK: Supple. No JVD at 45 degrees. No carotid bruits heard bilaterally. Carotid upstroke is brisk in nature. HEART: Regular rate and rhythm. Positive first and second sounds with no noted murmurs, gallops or rubs. LUNGS: Clear to auscultation bilaterally. No wheezes, rales or rhonchi. ABDOMEN: Soft, nontender, nondistended. No organomegaly noted. EXTREMITIES: Show no clubbing, cyanosis or edema. Femoral pulses are intact bilaterally. NEUROLOGIC: The patient appears overall lethargic. Tough to determine focal deficits as she is resting comfortably. She is lethargic, lying in the bed. SKIN: Warm, dry and intact. OSTEOPATHIC: No kyphoscoliosis, lordosis. LABORATORY DATA: Hemoglobin 9.8, hematocrit 29.0, platelets 118. Potassium 4.1, BUN 76, creatinine 2.23. Ammonia 16. IMPRESSION: 1. Urinary tract infection. 2. Acute encephalopathy. 3. Diabetes mellitus. 4. Acute kidney injury. 5. Diastolic congestive heart failure. 6. Pacemaker placed for volatile heart rates. RECOMMENDATIONS: 1. Ms. Reid has a Medtronic pacemaker, which is MRI safe. 2. From my standpoint, she can have an MRI and that sheet has been filled out. Her pacemaker was placed 2 years ago and should not be a problem. 3. Mode and rate to be determined by the rep at the time of the scan. Afterwards, she will be set back to her normal mode and rate. 4. No further workup from a cardiovascular standpoint. Thank you for allowing me to see Rosibel Reid. If there are any questions, please do not hesitate to call. Александр Colon DO VGP/es , 02:32 PM , 02:45 PM
[2018-09-27] MEDS: Piperacil/Tazo 2.25 GM Premix 2.25 GM/50 ML PIGGYBACK IV.SIG SCH ×2 (15:38→22:00)
[2018-09-27] MEDS ORDERED: Fosphenytoin Inj 1,000 MGPE in Sodium Chlor 0.9% Inj 50 ML IV.SIG ONE (16:00)
[2018-09-27] MEDS: Famotidine PF Inj 20 MG/2 ML Vial IV.PUSH SCH (20:33)
--- NOTE | 2018-09-27 21:03 | MG ---
cc: Prabhjot Preciado MD EEG NUMBER: [id number] Intubated, 83, edema, dementia, Plavix. Diffuse muscle artifact is noted, low amplitude beta versus just background artifact in the ICU was seen. The patient was put on a neuromuscular imtiaz. There is still some very low-amplitude beta rhythms noted over the midline head regions and there is some normal appearing very low amplitude, appears to be 10 Hz rhythm seen bilaterally, at times some diffuse 6 Hz rhythms are seen and again low amplitude. Photic stimulation is performed without significant posterior driving. At EPOCH 120 there is definite brain activity about 15 Hz low-amplitude rhythms. IMPRESSION: Diffuse low amplitude brain activity. No hemisphere Asymmetries are noted. No seizure activity was seen. Prabhjot Preciado MD DJM/ct , 06:24 PM , 06:30 PM
[2018-09-27] MEDS: Fosphenytoin Inj 100 MGPE in Sodium Chlor 0.9% Inj 50 ML IV.SIG SCH (21:35)
--- NOTE | 2018-09-27 23:26 | MB ---
cc: Itz Shah MD, PhD DATE: 09/27/2018 REASON FOR CONSULTATION: Seizure. HISTORY OF PRESENT ILLNESS: This is an 83-year-old woman with dementia, diabetes, congestive heart failure, coronary artery disease, pacemaker placement recently admitted at [facility] for UTI, sepsis, encephalopathy. After discharge continued to decline, increasing weakness and lethargy due to mental status change. She was admitted to the service of the hospitalist a few days ago. CT brain negative. Today, she went into a grand mal seizure, became unresponsive and hypotensive. She was intubated. Following this, had a severe metabolic acidosis requiring an amp of bicarbonate had a second episode of seizure activity while in the CT scanner. The Invanz was stopped for the possibility it may have been related to the seizures. She has been loaded with a gram of fosphenytoin and started on a maintenance 100 mg every 8 hours. She has had no recurrent seizures. NEUROLOGIC EXAMINATION: VITAL SIGNS: Blood pressure is 66/29, pulse is 76, respirations 20, temperature 97.5. HIGHER CORTICAL: She is nonresponsive, sedated. NECK: Supple. NEUROLOGIC: Pupils are 2 mm, symmetric, reactive. Extraocular movement is normal to doll's eyes. Motor exam normal. No spontaneous movement. I do not see any seizure activity. Reflexes are symmetric. IMAGING STUDIES: CT brain, no acute changes. Chronic atrophy. EEG pending. LABORATORY DATA: White count is 9700, hemoglobin 9.1, hematocrit 26%, platelets 102,000. The sodium is 146, potassium 4.3, chloride 119, CO2 17.3. The BUN is 82, creatinine 2.62, GFR 17, glucose is 125. IMPRESSION: Probable metabolic encephalopathy and dementia with new onset seizures. PLAN: I agree with the Cerebyx. Will follow levels. We will also followup on the EEG. The patient has a pacemaker. However, if she is able to have an MRI, i.e., if the pacemaker is MRI compatible with brain MRI, would be useful as well. Itz Shah MD, PhD LUIS EDUARDO/josefa , 08:37 PM , 08:42 PM
[2018-09-28] MEDS: Sodium Bicarbonate 8.4% Inj 150 MEQ in Water for Inj, Sterile 850 ML IV.CONT SCH ×4 (03:20→23:20)
[2018-09-28] MEDS: Fosphenytoin Inj 100 MGPE in Sodium Chlor 0.9% Inj 50 ML IV.SIG SCH ×3 (05:11→21:05)
[2018-09-28] MEDS: Levothyroxine 50 MCG Tablet PO SCH (05:12)
[2018-09-28] MEDS: Piperacil/Tazo 2.25 GM Premix 2.25 GM/50 ML PIGGYBACK IV.SIG SCH ×3 (06:00→22:05)
[2018-09-28] MEDS: Famotidine PF Inj 20 MG/2 ML Vial IV.PUSH SCH ×2 (08:54→20:39)
[2018-09-28] MEDS: Sodium Chloride 0.9% 2 ML Flush BID IV.FLUSH SCH ×2 (08:55→20:39)
--- NOTE | 2018-09-28 09:30 | P.PNCC ---
Subjective Subjective Remarks/Hospital Course: Patient is an 83 year old female with a prior medical history of diabetes, dementia, hypertension, CHF, hypothyroidism, history of coronary artery disease status post stent placement, and pacemaker placement. She was recently admitted and discharged from [facility] after treatment for UTI with ESBL Klebsiella. During the hospitalization the patient was admitted for acute encephalopathy which was thought to be due to to the UTI. She had encephalopathy during sepsis. However post discharge she continued to decline with increasing weakness and lethargy. Patient was admitted to hospitalist service on 09/25/2018 for mental status changes. Admission CAT scan was negative for any acute findings. Patient was placed on Invanz for recent ESBL E. coli UTI. Also patient was scheduled to get an MRI of the brain today for altered mental status workup. Today a.m. per Dr. Santana the patient was talking. Towards noon, stated that he witnessed his go into convulsions and became unresponsive. A halicat was called as the patient was unresponsive and hypotensive after the convulsion episode. Blood pressure was 66/40 obtunded not protecting airway. A stat ABG showed a pH of 7.13 PCO2 of 37 and base excess -15. [place] emerg[place] [facility] [place]. Clearly was not protecting airway. Because of severe metabolic acidosis I gave 1 amp of bicarb and started Levophed to keep map above 65 prior to intubation. Wide open normal saline fluid boluses were also started. Intubated and placed the patient on mechanical ventilation. Following this I also placed a right subclavian central line. Discussed with ID Invanz discontinued due to possible seizures and Zosyn started. Stat EEG ordered 09/28: Patient remains very critical. She is unresponsive comatose not on any sedation. Currently on 9 mcg/min of Levophed to keep map above 65. Almost anuric. CBC CMP and lactic acid pending today. Prognosis appears very poor Objective Vital Signs / I&O: Vital Signs 09/27/18 10:00 09/27/18 11:00 09/27/18 12:00 Temperature 96.8 F L Pulse Rate 74 82 76 Respiratory Rate 20 Blood Pressure 115/44 L Pulse Oximetry 97 09/27/18 12:17 09/27/18 13:00 09/27/18 13:12 Temperature Pulse Rate 72 Respiratory Rate 20 Blood Pressure Pulse Oximetry 100 100 09/27/18 14:00 12/13/18 15:00 09/27/18 16:00 Temperature 97.5 F L Pulse Rate 62 72 76 Respiratory Rate 20 Blood Pressure 66/29 L Pulse Oximetry 100 09/27/18 17:00 09/27/18 18:00 09/27/18 20:00 Temperature 98.1 F Pulse Rate 60 59 L 60 Respiratory Rate 20 Blood Pressure 123/64 Pulse Oximetry 09/27/18 20:02 09/27/18 22:00 09/27/18 23:14 Temperature Pulse Rate 60 Respiratory Rate 20 20 Blood Pressure Pulse Oximetry 100 100 09/28/18 00:00 09/28/18 01:04 09/28/18 02:00 Temperature 92.8 F L Pulse Rate 59 L 60 Respiratory Rate 20 Blood Pressure 95/46 L Pulse Oximetry 09/28/18 03:42 09/28/18 04:00 09/28/18 06:00 Temperature 93.6 F L Pulse Rate 59 L 60 Respiratory Rate 20 20 Blood Pressure 107/51 L Pulse Oximetry 100 100 09/28/18 08:00 Temperature 97.3 F L Pulse Rate 60 Respiratory Rate 20 Blood Pressure 110/49 L Pulse Oximetry 100 Intake & Output 09/27/18 09/28/18 09/28/18 18:59 06:59 18:59 Intake Total 2119 / 2203 Output Total 100 / 100 50 / 50 Balance 2019 Weight 85 kg Intake: IV 2119 / 2203 NS Inj 1,000 ML @ 42 mls/hr IV. 1000 / 1000 CONT .[id number] [facility] Rx#:[id number] Sodium Bicarbonate 8.4% Inj 150 2000 / 2000 MEQ In Sterile Water for Inj 850 ML @ 150 mls/hr IV.CONT . Q6H40M [facility] Rx#:[id number] Cerebyx Inj 100 MGPE In NS Inj 104 / 104 50 ML @ 208 mls/hr IV.SIG Q8HR [facility] Rx#:[id number] Cerebyx Inj 1,000 MGPE In NS 70 / 70 Inj 50 ML @ 280 mls/hr IV.SIG ONCE ONE Rx#:[id number] Zosyn 2.25 GM Premix 2.25 gm In 50 / 50 100 / 100 50 ml @ 100 mls/hr IV.SIG Q8H [facility] Rx#:[id number] NS Inj 1,000 ML @ 1000 mls/hr 1000 / 1000 IV.SIG BOLUS [facility] Rx#:[id number] Oral 0 / 0 Output: Urine Amount (Catheter) 100 / 100 50 / 50 Indwelling Urethral Catheter 100 / 100 50 / 50 Other: Date of Last Bowel Movement 09/27/18 09/28/18 09/28/18 # Incontinent Bowel Movements 1 1 Result Diagrams: 09/27/18 13:03 09/27/18 13:03 Objective Remarks: [id number]old female who is unresponsive intubated not on any sedation HEENT atraumatic, normocephalic. Pupils equal. Orotracheally intubated Neck: No JVD. Neck supple Resp: Air entry equal but diminished bilaterally. Bilateral few coarse rhonchi CVS: S1-S2 normal no murmurs. Currently on Levophed at 9 mcg/min Abdomen soft, nontender Extremities + pitting edema bilateral lower extremity Neuro: Patient is unresponsive no spontaneous eye opening no response to pain. Very slight withdrawal of extremities to deep noxious stimuli. No purposeful movements noted Assessment and Plan - Assessment and Plan Plan: ASSESSMENT: Acute metabolic encephalopathy Acute respiratory failure New onset seizures Severe metabolic acidosis Septic shock Acute kidney failure Recent ESBL E. coli UTI Dementia Diabetes Gout Dyslipidemia Hypertension Hypothyroid PLAN: NEURO: -Probable new onset seizures with postictal state -Severe metabolic encephalopathy -Neurology consult appreciated, continue fosphenytoin -Seizure it could be related to Invanz, this had been discontinued -EEG showed encephalopathy no seizures. Follow Dilantin levels -Hold MRI of the brain until more stable -Versed infusion for ventilator synchrony and seizure control. PRN IV Ativan. Currently remains off all sedation RESP: -Emergently intubated and placed on mechanical ventilation due to inability to protect airway -PRVC/AC. Ventilator bundle -DuoNeb every 6 hours as needed -Sputum culture CV: -Continue bicarb infusion at 150 mL/h -Levophed to keep map above 65 -Repeat lactic acid today GI: -N.p.o., IV famotidine : -Monitor renal function closely. Polanco catheter. -Nephrology is following. Dr. Hawk -Renal ultrasound did not show any evidence of hydronephrosis -Patient remains oliguric to anuric, however I do not think she is a candidate for hemodialysis due to overall poor prognosis ID: -Antibiotics DCd Invanz started Zosyn per Dr. Vanegas -Blood urine cultures on admission are negative. Repeat blood and sputum culture pending -Recent ESBL E. coli UTI treated at [facility] HEME: -Monitor CBC, coags ENDO: -Electrolyte replacement if needed PROPH: -Bilateral lower extremity SCDs. Subcu heparin for DVT prophylaxis. IV famotidine for GI prophylaxis LINES: -Right subclavian central line placed 09/27/2018 -Endotracheal intubation 09/27/2018 CC time 38 min excluding procedures Prognosis is grave at this time with poor chance of survival. Patient is in multiorgan failure including neurological system, respiratory failure, cardiac/ circulatory failure, septic shock and renal failure. Highly unlikely patient will survive this episode Code Status: DNR
[2018-09-28 09:56] LABS: Hematocrit 28.7 % (35.0-46.0); Hemoglobin 9.6 gm/dL (11.6-15.3); Mean Corpuscular HGB Conc 33.3 % (32.0-36.0); Mean Corpuscular Hemoglobin 33.8 pg (27.0-34.0); Mean Corpuscular Volume 101.3 fL (80.0-100.0); Mean Platelet Volume 7.5 fL (7.0-11.0); Platelet Count 127 th/mm3 (150-450); Red Blood Count 2.84 mil/mm3 (4.00-5.30); Red Cell Distribution Width 16.7 % (11.6-17.2)
[2018-09-28 10:16] LABS: Albumin 1.5 g/dL (3.4-5.0); Calcium 7.2 mg/dL (8.5-10.1); Carbon Dioxide 19.4 meq/L (21.0-32.0); Potassium 3.6 meq/L (3.5-5.1); Total Protein 4.1 g/dL (6.4-8.2)
[2018-09-28 10:26] LABS: ABG Base Excess -5.9 mmol/L (-2-2); ABG PCO2 23 mmHg (38-42); ABG PO2 94 mmHG (61-120)
--- NOTE | 2018-09-28 11:46 | P.PNID ---
Subjective Remarks: Patient remains intubated on the ventilator. Warming blanket in place. Unresponsive. No fever. White blood cell count increased. Ultrasound no growth. This is an 83-year-old white female who has history of diabetes mellitus. The patient was recently hospitalized at [facility] and treated for sepsis and UTI. The urine culture at the time grew ESBL Klebsiella. She was discharged on intravenous Invanz. The patient was discharged on 09/23/2018 and was to continue treatment for 7 days of the Invanz. She was brought for evaluation of altered mental status and worsening bilateral lower extremity edema and also edema of the upper extremities. The is at bedside. He tells me that she has more fluid than usual in the lower extremities and also upper extremities. The patient has history of congestive heart failure. She underwent placement of a pacemaker 2 years ago. It is reported that she had become unable to take care of her daily activities prior to admission to the hospital in [place]. The patient is currently unresponsive. Her white blood cell count is 10.2. Temperature is 94.7. She has a Polanco catheter in place. Urinalysis showed 55 white cells and the urine is cloudy. She also has renal insufficiency with estimated GFR of 21. She is reported to have had acute kidney disease when she was in the hospital in [facility]. Past Medical History: PAST MEDICAL HISTORY: Diabetes mellitus, GERD, hypertension, hypothyroidism, dementia. Allergies/Adverse Reactions: Allergies No Known Allergies Allergy (Verified 09/25/18 09:53) Objective Vital Signs 09/27/18 12:00 09/27/18 12:17 09/27/18 13:00 Temperature 96.8 F L Pulse Rate 76 72 Respiratory Rate 20 Blood Pressure 115/44 L Pulse Oximetry 97 100 09/27/18 13:12 09/27/18 14:00 09/27/18 15:00 Temperature Pulse Rate 62 72 Respiratory Rate 20 Blood Pressure Pulse Oximetry 100 09/27/18 16:00 09/27/18 17:00 09/27/18 18:00 Temperature 97.5 F L Pulse Rate 76 60 59 L Respiratory Rate 20 Blood Pressure 66/29 L Pulse Oximetry 100 09/27/18 20:00 09/27/18 20:02 09/27/18 22:00 Temperature 98.1 F Pulse Rate 60 60 Respiratory Rate 20 20 Blood Pressure 123/64 Pulse Oximetry 100 09/27/18 23:14 09/28/18 00:00 09/28/18 01:04 Temperature 92.8 F L Pulse Rate 59 L Respiratory Rate 20 20 Blood Pressure 95/46 L Pulse Oximetry 100 09/28/18 02:00 09/28/18 03:42 09/28/18 04:00 Temperature 93.6 F L Pulse Rate 60 59 L Respiratory Rate 20 20 Blood Pressure 107/51 L Pulse Oximetry 100 100 09/28/18 06:00 09/28/18 08:00 09/28/18 10:00 Temperature 97.3 F L Pulse Rate 60 60 65 Respiratory Rate 20 Blood Pressure 110/49 L Pulse Oximetry 100 09/28/18 11:37 Temperature Pulse Rate Respiratory Rate 20 Blood Pressure Pulse Oximetry 100 Intake & Output 09/27/18 09/28/18 09/28/18 18:59 06:59 18:59 Intake Total 2120 / 2120 2204 / 2204 1250 / 1250 Output Total 100 / 100 50 / 50 Balance 2019 / 2019 2154 / 2154 1250 / 1250 Weight 85 kg Intake: IV 2120 / 2120 2204 / 2204 1250 / 1250 NS Inj 1,000 ML @ 42 mls/hr IV. 1000 / 1000 CONT .[id number] [facility] Rx#:[id number] Sodium Bicarbonate 8.4% Inj 150 2000 / 2000 1000 / 1000 MEQ In Sterile Water for Inj 850 ML @ 150 mls/hr IV.CONT . Q6H40M [facility] Rx#:[id number] Cerebyx Inj 100 MGPE In NS Inj 104 / 104 50 ML @ 208 mls/hr IV.SIG Q8HR [facility] Rx#:[id number] Cerebyx Inj 1,000 MGPE In NS 70 / 70 Inj 50 ML @ 280 mls/hr IV.SIG ONCE ONE Rx#:[id number] Levophed-Dextrose 4 mg/250 ml 250 / 250 Drip 4 mg In 250 ml @ 2 MCG/MIN 7.5 mls/hr IV.SIG TITRATE PRN Rx#:[id number] Zosyn 2.25 GM Premix 2.25 gm In 50 / 50 100 / 100 50 ml @ 100 mls/hr IV.SIG Q8H [facility] Rx#:[id number] NS Inj 1,000 ML @ 1000 mls/hr 1000 / 1000 IV.SIG BOLUS [facility] Rx#:[id number] Oral 0 / 0 Output: Urine Amount (Catheter) 100 / 100 50 / 50 Indwelling Urethral Catheter 100 / 100 50 / 50 Other: Date of Last Bowel Movement 09/27/18 09/28/18 09/28/18 # Incontinent Bowel Movements 1 1 09/27/18 13:49 Blood - Peripheral Aerobic Blood Culture - Preliminary No growth in 1 day 09/27/18 13:49 Blood - Peripheral Anaerobic Blood Culture - Preliminary No growth in 1 day 09/25/18 11:15 Blood - Peripheral Aerobic Blood Culture - Preliminary No growth in 3 days 09/25/18 11:15 Blood - Peripheral Anaerobic Blood Culture - Preliminary No growth in 3 days 09/25/18 11:20 Blood - Peripheral Aerobic Blood Culture - Preliminary No growth in 3 days 09/25/18 11:20 Blood - Peripheral Anaerobic Blood Culture - Preliminary No growth in 3 days 09/25/18 10:40 Catheterized Urine Urine Culture - Final No growth in 48 hours 09/25/18 10:40 Nasal Wash Influenza Types A,B Antigen - Final Negative for FLU A and B antigen Infection due to influenza A or B cannot be ruled out since the antigen present in the sample may be below the detection limit of the test. Lab - Hematology Results 09/27/18 09/28/18 13:03 09:48 WBC 9.7 22.0 H D RBC 2.62 L 2.84 L Hgb 9.1 L 9.6 L Hct 26.9 L 28.7 L MCV 102.7 H 101.3 H MCH 34.8 H 33.8 MCHC 33.9 33.3 RDW 17.3 H 16.7 Plt Count 102 L 127 L MPV 7.9 7.5 Neut % (Auto) 73.0 H Lymph % (Auto) 19.9 Maury % (Auto) 4.2 Eos % (Auto) 2.0 Baso % (Auto) 0.9 Neut # (Auto) 7.1 Lymph # (Auto) 1.9 Maury # (Auto) 0.4 Eos # (Auto) 0.2 Baso # (Auto) 0.1 WBC Differential . Differential Comment Auto diff final Lab - Chemistry Results 09/26/18 09/26/18 09/26/18 12:03 16:55 22:34 Sodium Potassium Chloride Carbon Dioxide Anion Gap BUN Creatinine Estimated GFR POC Glucose 112 H 138 H 106 Random Glucose Lactic Acid Calcium Calcium Adj for Albumin Total Bilirubin AST ALT Alkaline Phosphatase Troponin I Total Protein Albumin 09/27/18 09/27/18 09/27/18 05:17 11:56 13:03 Sodium 145 Potassium 4.3 Chloride 119 H Carbon Dioxide 15.9 L Anion Gap 10 BUN 80 H Creatinine 2.47 H Estimated GFR 19 L POC Glucose 108 Random Glucose 94 Lactic Acid 2.4 H Calcium 7.8 L Calcium Adj for Albumin Total Bilirubin AST ALT Alkaline Phosphatase Troponin I Total Protein Albumin 09/27/18 09/27/18 09/27/18 13:03 13:03 19:23 Sodium 146 H Potassium 4.3 Chloride 119 H Carbon Dioxide 17.3 L Anion Gap 10 BUN 82 H Creatinine 2.62 H Estimated GFR 17 L POC Glucose 125 H Random Glucose 115 H Lactic Acid Calcium 7.6 L Calcium Adj for Albumin Total Bilirubin 0.4 AST 25 ALT 11 Alkaline Phosphatase 111 Troponin I 0.04 Total Protein 4.5 L D Albumin 1.6 L 09/28/18 09/28/18 09/28/18 00:04 06:24 09:48 Sodium 141 Potassium 3.6 Chloride 109 H D Carbon Dioxide 19.4 L Anion Gap 13 BUN 80 H Creatinine 2.62 H Estimated GFR 17 L POC Glucose 192 H 162 H Random Glucose 166 H Lactic Acid Calcium 7.2 L* Calcium Adj for Albumin 9.2 Total Bilirubin 0.8 AST 22 ALT 10 Alkaline Phosphatase 102 Troponin I Total Protein 4.1 L Albumin 1.5 L 09/28/18 09:48 Sodium Potassium Chloride Carbon Dioxide Anion Gap BUN Creatinine Estimated GFR POC Glucose Random Glucose Lactic Acid 2.4 H Calcium Calcium Adj for Albumin Total Bilirubin AST ALT Alkaline Phosphatase Troponin I Total Protein Albumin Imaging: ITS Impressions Abdomen/Bladder Ultrasound 09/27/18 00:00 CONCLUSION: 1. Atrophic right kidney 2. Increased left renal cortical echogenicity 3. No evidence of hydronephrosis Chest X-Ray 09/27/18 12:54 CONCLUSION: 1. ETT in good position. 2. Left subclavian central line in the proximal SVC. 3. Persistent small bilateral pleural effusions and associated airspace disease at the lung bases. Head CT 09/27/18 12:55 CONCLUSION: 1. Stable appearance with no acute hemorrhage, mass or infarction. 2. Atrophy and chronic small vessel ischemic changes. 3. Mild sinusitis. . Physical Exam: PHYSICAL EXAMINATION: GENERAL: Intubated and unresponsive. HEENT: The head is atraumatic. Extraocular movements cannot be fully assessed as the patient cannot cooperate. Oropharynx mucosa appears dry. NECK: Supple without adenopathy or swelling. LUNGS: Bilateral rhonchi. Breath sounds are decreased. HEART: Regular S1 and S2 with a slight systolic murmur at the left sternal border. ABDOMEN: Bowel sounds diminished. Soft, no tenderness appreciated. EXTREMITIES: No clubbing or cyanosis. 1+ pitting edema of the lower extremities and 2+ pitting edema in the upper extremities. The edema extends to the thighs and hips. SKIN: No diffuse rash. PSYCHIATRIC: Unable to assess. Assessment and Plan - Plan IMPRESSION: 1. Urinary tract infection. 2. Probable sepsis. 3. Acute kidney disease. 4. Encephalopathy, likely related to infection and compounded by dementia. 5. Acute respiratory failure following seizure. 6. Potential for aspiration. Patient is very ill at this time. RECOMMENDATIONS: 1. Continue Zosyn. 2. Monitor blood culture. 3. Monitor clinical status. Discussed with patient's . Plans likely will be made for withdrawal from respiratory support because of her severe clinical illness and poor outlook.
--- NOTE | 2018-09-28 12:44 | P.PNPAL ---
Reason for Visit Reason for visit: a. To assist with evaluation and management of symptoms including: Encephalopathy, shortness of breath, physical deconditioning b. To assist medical decision maker(s) with: better understanding of current medical conditions; weighing benefits/burdens of medical treatment options; making medical treatment decisions. Subjective Subjective/Interval History: Follow-up medically necessary for symptom management and further clarification of goals of medical treatment. Patient seen and examined in the room on MICU. Patient remains intubated, no sedation on mechanical ventilation. FiO2 currently 35% O2 sats in the high 90s. Patient is unresponsive, no eye opening. Patient's press on Levophed infusion has been increased to 8 mcg/min with current SBP in the low 100s and DBP in the mid 40s. Head CT after seizure on 09/27/18 revealed no acute hemorrhage, mass or infarction and atrophy and chronic small vessel ischemic changes. Neurology Dr. Shah consulted on 09/27/18 for evaluation and management of patient with new onset of seizures, recommended brain MRI. Laboratory workup 09/28/18 revealing WBC 22.0, hemoglobin 9.6, hematocrit 28.7, platelet count 127, sodium 141, potassium 3.6, BUN/creatinine 80/2.62, random glucose 166, lactic acid 2.4, calcium 7.2, AST 22, ALT 10, total protein 4.1, albumin 1.5, phenytoin level 7.6. ABG 09/28/18 showing pH 7.48, PCO2 23, PO2 94 , HCO3 17, base excess -5.9 on PRVC/AC/20/450/AT 0.90/5 PEEP/35%. Patient became hypothermic overnight requiring use of a bear hugger and is almost anuric. Discussion with patient spouse Jsoe Reid at bedside. Patient spouse has had discussion with critical care management physician and understands that patient is in multi-organ failure inclusive of respiratory failure, neurological system, cardiac/circulatory failure, failure and septic shock. Patient spouse states that he has been in communication with other family members and they have prematurely come to a decision to proceed with compassionate withdrawal from life support. Patient spouse states that he will most likely have a definitive answer by tomorrow. He wants to allow his son and grandson to come back later today 09/28/18 to see patient. Patient spouse states that he would not want patient to suffer at time of compassionately withdrawing from life support. Anticipatory guidance provided regarding process of compassionately withdrawing from life support and measures taken to make sure that patient is kept comfortable and symptoms are effectively managed. Introduced hospice philosophy and benefits. Patient spouse would like hospice services to be involved at the time of compassionate withdrawal from life support. Provided empathetic listening as patient spouse talked about arrangements he has made in the past for his . Hospice consult placed. Case discussed with bedside RN and Dr. Jacobsen. Exhibit C placed on the chart. Family/Friend Interactions: See interval note. . Advance Directives Living Will: Never completed Health Care Surrogate: Never completed Durable Power of Seismograph Observer: Never completed Health Care Surrogate Name and Number: HCP:Spouse Jose Reid [phone] Objective Vital Signs: Vital Signs 09/27/18 12:17 09/27/18 13:00 09/27/18 13:12 Temperature Pulse Rate 72 Respiratory Rate 20 Blood Pressure Pulse Oximetry 100 100 09/27/18 14:00 09/27/18 15:00 09/27/18 16:00 Temperature 97.5 F L Pulse Rate 62 72 76 Respiratory Rate 20 Blood Pressure 66/29 L Pulse Oximetry 100 09/27/18 17:00 09/27/18 18:00 09/27/18 20:00 Temperature 98.1 F Pulse Rate 60 59 L 60 Respiratory Rate 20 Blood Pressure 123/64 Pulse Oximetry 09/27/18 20:02 09/27/18 22:00 09/27/18 23:14 Temperature Pulse Rate 60 Respiratory Rate 20 20 Blood Pressure Pulse Oximetry 100 100 09/28/18 00:00 09/28/18 01:04 09/28/18 02:00 Temperature 92.8 F L Pulse Rate 59 L 60 Respiratory Rate 20 Blood Pressure 95/46 L Pulse Oximetry 09/28/18 03:42 09/28/18 04:00 09/28/18 06:00 Temperature 93.6 F L Pulse Rate 59 L 60 Respiratory Rate 20 20 Blood Pressure 107/51 L Pulse Oximetry 100 100 09/28/18 08:00 09/28/18 10:00 09/28/18 11:37 Temperature 97.3 F L Pulse Rate 60 65 Respiratory Rate 20 20 Blood Pressure 110/49 L Pulse Oximetry 100 100 Intake & Output 09/27/18 09/28/18 09/28/18 18:59 06:59 18:59 Intake Total 2119 / 2203 1250 / 1250 Output Total 100 / 100 50 / 50 Balance 2019 1250 / 1250 Weight 85 kg Intake: IV 2119 / 2119 2203 / 2204 1250 / 1250 NS Inj 1,000 ML @ 42 mls/hr IV. 1000 / 1000 CONT .[id number] [facility] Rx#:[id number] Sodium Bicarbonate 8.4% Inj 150 2000 / 2000 1000 / 1000 MEQ In Sterile Water for Inj 850 ML @ 150 mls/hr IV.CONT . Q6H40M [facility] Rx#:[id number] Cerebyx Inj 100 MGPE In NS Inj 104 / 104 50 ML @ 208 mls/hr IV.SIG Q8HR [facility] Rx#:[id number] Cerebyx Inj 1,000 MGPE In NS 70 / 70 Inj 50 ML @ 280 mls/hr IV.SIG ONCE ONE Rx#:[id number] Levophed-Dextrose 4 mg/250 ml 250 / 250 Drip 4 mg In 250 ml @ 2 MCG/MIN 7.5 mls/hr IV.SIG TITRATE PRN Rx#:[id number] Zosyn 2.25 GM Premix 2.25 gm In 50 / 50 100 / 100 50 ml @ 100 mls/hr IV.SIG Q8H [facility] Rx#:[id number] NS Inj 1,000 ML @ 1000 mls/hr 1000 / 1000 IV.SIG BOLUS [facility] Rx#:[id number] Oral 0 / 0 Output: Urine Amount (Catheter) 100 / 100 50 / 50 Indwelling Urethral Catheter 100 / 100 50 / 50 Other: Date of Last Bowel Movement 09/27/18 09/28/18 09/28/18 # Incontinent Bowel Movements 1 1 Physical Exam: CONSTITUTIONAL/GENERAL: This is an elderly patient in no acute distress. TUBES/LINES/DRAINS: ETT, right nare NG tube, right subclavian triple-lumen catheter, Polanco catheter SKIN: No jaundice. Ecchymoses on upper extremities. Skin tears to upper extremities. Weeping edema sacral decubitus ulcer. Hypothermic, on a bear hugger warmer. HEAD: Atraumatic. Normocephalic. EYES: Pupils equal and round and reactive. Extraocular motions intact. No scleral icterus. No injection or drainage. Fundi not examined. ENT: Hearing grossly normal. Nose without bleeding or purulent drainage. Endotracheally intubated. NECK: Trachea midline. Supple, nontender. CARDIOVASCULAR: S1, S2 normal. No JVD. Peripheral pulses symmetric. RESPIRATORY/CHEST: Symmetric, unlabored respirations. Diminished breath sounds. GASTROINTESTINAL: Abdomen obese, soft, non-tender, nondistended. Hypoactive bowel sounds. NG tube clamped. GENITOURINARY: Without palpable bladder distension. Polanco catheter with scant amount of yellow urine. MUSCULOSKELETAL: Extremities without clubbing, cyanosis. Generalized edema to all 4 extremities. Weeping edema to bilateral upper extremities. No mottling or clubbing. LYMPHATICS: Did not assess NEUROLOGICAL: Intubated on mechanical ventilation. Unresponsive. PSYCHIATRIC: Unable to assess. Diagnostic Tests Laboratory: Laboratory Results - last 72 hr 09/25/18 09/25/18 09/26/18 19:55 23:31 04:59 WBC RBC Hgb Hct MCV MCH MCHC RDW Plt Count MPV Neut % (Auto) Lymph % (Auto) [place] % (Auto) Eos % (Auto) Baso % (Auto) Neut # (Auto) Lymph # (Auto) [place] # (Auto) Eos # (Auto) Baso # (Auto) WBC Differential Differential Comment Puncture Site Patient Temperature O2 Saturation ABG pH ABG pCO2 ABG pO2 ABG HCO3 ABG O2 Content ABG Base Excess ABG Methemoglobin Niels Test Hemoglobin Carboxyhemoglobin O2 Delivery Device Liter Flow Vent Setting Inspired O2 Critical Value Sodium 141 Potassium 4.4 D Chloride 115 H Carbon Dioxide 16.1 L Anion Gap 10 BUN 75 H Creatinine 2.26 H Estimated GFR 21 L POC Glucose 142 H 126 H Random Glucose 145 H Lactic Acid Calcium 8.0 L Calcium Adj for Albumin Magnesium Total Bilirubin AST ALT Alkaline Phosphatase Ammonia Troponin I Total Protein Albumin Phenytoin 09/26/18 09/26/18 09/26/18 06:52 06:52 06:52 WBC 9.6 RBC 2.82 L Hgb 9.8 L Hct 29.0 L MCV 103.0 H MCH 34.8 H MCHC 33.8 RDW 17.0 Plt Count 118 L MPV 7.5 Neut % (Auto) 67.5 Lymph % (Auto) 22.4 [place] % (Auto) 5.5 Eos % (Auto) 3.2 Baso % (Auto) 1.4 Neut # (Auto) 6.5 Lymph # (Auto) 2.2 [place] # (Auto) 0.5 Eos # (Auto) 0.3 Baso # (Auto) 0.1 WBC Differential . Differential Comment Auto diff final Puncture Site Patient Temperature O2 Saturation ABG pH ABG pCO2 ABG pO2 ABG HCO3 ABG O2 Content ABG Base Excess ABG Methemoglobin Niels Test Hemoglobin Carboxyhemoglobin O2 Delivery Device Liter Flow Vent Setting Inspired O2 Critical Value Sodium 144 Potassium 4.1 Chloride 117 H Carbon Dioxide 16.3 L Anion Gap 11 BUN 76 H Creatinine 2.23 H Estimated GFR 21 L POC Glucose Random Glucose 105 Lactic Acid Calcium 7.9 L Calcium Adj for Albumin Magnesium 2.2 Total Bilirubin AST ALT Alkaline Phosphatase Ammonia 16 Troponin I Total Protein Albumin Phenytoin 09/26/18 09/26/18 09/26/18 12:03 16:55 22:34 WBC RBC Hgb Hct MCV MCH MCHC RDW Plt Count MPV Neut % (Auto) Lymph % (Auto) [place] % (Auto) Eos % (Auto) Baso % (Auto) Neut # (Auto) Lymph # (Auto) [place] # (Auto) Eos # (Auto) Baso # (Auto) WBC Differential Differential Comment Puncture Site Patient Temperature O2 Saturation ABG pH ABG pCO2 ABG pO2 ABG HCO3 ABG O2 Content ABG Base Excess ABG Methemoglobin Niels Test Hemoglobin Carboxyhemoglobin O2 Delivery Device Liter Flow Vent Setting Inspired O2 Critical Value Sodium Potassium Chloride Carbon Dioxide Anion Gap BUN Creatinine Estimated GFR POC Glucose 112 H 138 H 106 Random Glucose Lactic Acid Calcium Calcium Adj for Albumin Magnesium Total Bilirubin AST ALT Alkaline Phosphatase Ammonia Troponin I Total Protein Albumin Phenytoin 09/27/18 09/27/18 09/27/18 05:17 11:56 12:23 WBC RBC Hgb Hct MCV MCH MCHC RDW Plt Count MPV Neut % (Auto) Lymph % (Auto) [place] % (Auto) Eos % (Auto) Baso % (Auto) Neut # (Auto) Lymph # (Auto) [place] # (Auto) Eos # (Auto) Baso # (Auto) WBC Differential Differential Comment Puncture Site Right radial Patient Temperature 98.6 O2 Saturation 97 ABG pH 7.13 L* ABG pCO2 37 L ABG pO2 256 H ABG HCO3 12 L* ABG O2 Content 13.6 ABG Base Excess -15.4 L ABG Methemoglobin 1.6 Niels Test Present Hemoglobin 9.6 L Carboxyhemoglobin 1.1 O2 Delivery Device Nrb Liter Flow 15.00 Vent Setting Inspired O2 Critical Value Yes Sodium 145 Potassium 4.3 Chloride 119 H Carbon Dioxide 15.9 L Anion Gap 10 BUN 80 H Creatinine 2.47 H Estimated GFR 19 L POC Glucose 108 Random Glucose 94 Lactic Acid Calcium 7.8 L Calcium Adj for Albumin Magnesium Total Bilirubin AST ALT Alkaline Phosphatase Ammonia Troponin I Total Protein Albumin Phenytoin 09/27/18 09/27/18 09/27/18 13:03 13:03 13:03 WBC 9.7 RBC 2.62 L Hgb 9.1 L Hct 26.9 L MCV 102.7 H MCH 34.8 H MCHC 33.9 RDW 17.3 H Plt Count 102 L MPV 7.9 Neut % (Auto) 73.0 H Lymph % (Auto) 19.9 [place] % (Auto) 4.2 Eos % (Auto) 2.0 Baso % (Auto) 0.9 Neut # (Auto) 7.1 Lymph # (Auto) 1.9 [place] # (Auto) 0.4 Eos # (Auto) 0.2 Baso # (Auto) 0.1 WBC Differential . Differential Comment Auto diff final Puncture Site Patient Temperature O2 Saturation ABG pH ABG pCO2 ABG pO2 ABG HCO3 ABG O2 Content ABG Base Excess ABG Methemoglobin Niels Test Hemoglobin Carboxyhemoglobin O2 Delivery Device Liter Flow Vent Setting Inspired O2 Critical Value Sodium Potassium Chloride Carbon Dioxide Anion Gap BUN Creatinine Estimated GFR POC Glucose Random Glucose Lactic Acid 2.4 H Calcium Calcium Adj for Albumin Magnesium Total Bilirubin AST ALT Alkaline Phosphatase Ammonia Troponin I 0.04 Total Protein Albumin Phenytoin 09/27/18 09/27/18 09/27/18 13:03 13:18 19:23 WBC RBC Hgb Hct MCV MCH MCHC RDW Plt Count MPV Neut % (Auto) Lymph % (Auto) [place] % (Auto) Eos % (Auto) Baso % (Auto) Neut # (Auto) Lymph # (Auto) [place] # (Auto) Eos # (Auto) Baso # (Auto) WBC Differential Differential Comment Puncture Site Left radial Patient Temperature 98.6 O2 Saturation 97 ABG pH 7.26 L* ABG pCO2 30 L ABG pO2 309 H ABG HCO3 13 L* ABG O2 Content 13.2 ABG Base Excess -12.7 L ABG Methemoglobin 1.8 Niels Test Present Hemoglobin 9.1 L Carboxyhemoglobin 1.1 O2 Delivery Device Ventilator Liter Flow Vent Setting Prvc/ac 450/20 Inspired O2 60 Critical Value Yes Sodium 146 H Potassium 4.3 Chloride 119 H Carbon Dioxide 17.3 L Anion Gap 10 BUN 82 H Creatinine 2.62 H Estimated GFR 17 L POC Glucose 125 H Random Glucose 115 H Lactic Acid Calcium 7.6 L Calcium Adj for Albumin Magnesium Total Bilirubin 0.4 AST 25 ALT 11 Alkaline Phosphatase 111 Ammonia Troponin I Total Protein 4.5 L D Albumin 1.6 L Phenytoin 09/28/18 09/28/18 09/28/18 00:04 06:24 06:30 WBC RBC Hgb Hct MCV MCH MCHC RDW Plt Count MPV Neut % (Auto) Lymph % (Auto) [place] % (Auto) Eos % (Auto) Baso % (Auto) Neut # (Auto) Lymph # (Auto) [place] # (Auto) Eos # (Auto) Baso # (Auto) WBC Differential Differential Comment Puncture Site Patient Temperature O2 Saturation ABG pH ABG pCO2 ABG pO2 ABG HCO3 ABG O2 Content ABG Base Excess ABG Methemoglobin Niels Test Hemoglobin Carboxyhemoglobin O2 Delivery Device Liter Flow Vent Setting Inspired O2 Critical Value Sodium Potassium Chloride Carbon Dioxide Anion Gap BUN Creatinine Estimated GFR POC Glucose 192 H 162 H Random Glucose Lactic Acid Calcium Calcium Adj for Albumin Magnesium Total Bilirubin AST ALT Alkaline Phosphatase Ammonia Troponin I Total Protein Albumin Phenytoin 7.6 L 09/28/18 09/28/18 09/28/18 09:48 09:48 09:48 WBC 22.0 H D RBC 2.84 L Hgb 9.6 L Hct 28.7 L MCV 101.3 H MCH 33.8 MCHC 33.3 RDW 16.7 Plt Count 127 L MPV 7.5 Neut % (Auto) Lymph % (Auto) [place] % (Auto) Eos % (Auto) Baso % (Auto) Neut # (Auto) Lymph # (Auto) [place] # (Auto) Eos # (Auto) Baso # (Auto) WBC Differential Differential Comment Puncture Site Patient Temperature O2 Saturation ABG pH ABG pCO2 ABG pO2 ABG HCO3 ABG O2 Content ABG Base Excess ABG Methemoglobin Niels Test Hemoglobin Carboxyhemoglobin O2 Delivery Device Liter Flow Vent Setting Inspired O2 Critical Value Sodium 141 Potassium 3.6 Chloride 109 H D Carbon Dioxide 19.4 L Anion Gap 13 BUN 80 H Creatinine 2.62 H Estimated GFR 17 L POC Glucose Random Glucose 166 H Lactic Acid 2.4 H Calcium 7.2 L* Calcium Adj for Albumin 9.2 Magnesium Total Bilirubin 0.8 AST 22 ALT 10 Alkaline Phosphatase 102 Ammonia Troponin I Total Protein 4.1 L Albumin 1.5 L Phenytoin 09/28/18 09/28/18 10:12 11:57 WBC RBC Hgb Hct MCV MCH MCHC RDW Plt Count MPV Neut % (Auto) Lymph % (Auto) [place] % (Auto) Eos % (Auto) Baso % (Auto) Neut # (Auto) Lymph # (Auto) [place] # (Auto) Eos # (Auto) Baso # (Auto) WBC Differential Differential Comment Puncture Site Right radial Patient Temperature 98.6 O2 Saturation 95 ABG pH 7.48 H ABG pCO2 23 L* ABG pO2 94 ABG HCO3 17 L ABG O2 Content 12.8 ABG Base Excess -5.9 L ABG Methemoglobin 1.7 Niels Test Present Hemoglobin 9.4 L Carboxyhemoglobin 1.2 O2 Delivery Device Ventilator Liter Flow Vent Setting Inspired O2 Critical Value Yes Sodium Potassium Chloride Carbon Dioxide Anion Gap BUN Creatinine Estimated GFR POC Glucose 141 H Random Glucose Lactic Acid Calcium Calcium Adj for Albumin Magnesium Total Bilirubin AST ALT Alkaline Phosphatase Ammonia Troponin I Total Protein Albumin Phenytoin Result Diagrams: 09/28/18 09:48 09/28/18 09:48 Microbiology: Microbiology 09/27/18 13:49 Aerobic Blood Culture - Preliminary Blood - Peripheral No growth in 1 day Anaerobic Blood Culture - Preliminary No growth in 1 day 09/25/18 11:15 Aerobic Blood Culture - Preliminary Blood - Peripheral No growth in 3 days Anaerobic Blood Culture - Preliminary No growth in 3 days 09/25/18 11:20 Aerobic Blood Culture - Preliminary Blood - Peripheral No growth in 3 days Anaerobic Blood Culture - Preliminary No growth in 3 days 09/25/18 10:40 Urine Culture - Final Catheterized Urine No growth in 48 hours 09/25/18 10:40 Influenza Types A,B Antigen - Final Nasal Wash Negative for FLU A and B antigen Infection due to influenza A or B cannot be ruled out since the antigen present in the sample may be below the detection limit of the test. Imaging: Abdomen/Bladder Ultrasound 09/27/18 00:00 CONCLUSION: 1. Atrophic right kidney 2. Increased left renal cortical echogenicity 3. No evidence of hydronephrosis Chest X-Ray 09/27/18 12:54 CONCLUSION: 1. ETT in good position. 2. Left subclavian central line in the proximal SVC. 3. Persistent small bilateral pleural effusions and associated airspace disease at the lung bases. Head CT 09/27/18 12:55 CONCLUSION: 1. Stable appearance with no acute hemorrhage, mass or infarction. 2. Atrophy and chronic small vessel ischemic changes. 3. Mild sinusitis. . Procedures: 09/27/2018-endotracheal intubation [id number]/27/[id number] catheter right subclavian placement Assessment and Plan - Disease Oriented Problem List (1) Acute respiratory failure (2) Sepsis (3) Acute kidney injury (4) UTI (urinary tract infection) (5) Congestive heart failure - Symptom Scale (1) Shortness of breath 0-10 Scale: Unable to quantify Comment: Patient has history of CHF. Patient went into acute respiratory failure after probable seizure, requiring intubation on 09/27/18. (2) Altered mental status 0-10 Scale: Unable to quantify Comment: Patient has a history of dementia but he had worsening altered mental status status since 3 weeks ago. (3) Physical deconditioning 0-10 Scale: Unable to quantify Comment: Progressive. Pertinent Non-Medical Issues: Psychosocial: Patient is originally from [place], [place]. Patient and his spouse used to be snowbirds for 25 years. They permanently moved to [place] about 4-5 years ago. She has been to her spouse for 62 years. They have 4 adult children, 3 sons Brandon Reid, Pablo Reid, Carlos Reid daughter Radha Moore and grandchildren. 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 Ethical issues impacting care: None identified at this time. . Important Contacts: Spouse-Jose Reid [phone] Son-Brandon Reid [phone] Grandson-Roderick Reid [phone] Prognosis: Mrs. Reid is an 83-year-old female with a medical history of diastolic congestive heart failure, coronary artery disease status post stent placement and pacemaker placement, hypercholesteremia, hypertension, hypothyroidism, insulin-dependent diabetes, dementia and recent urinary tract infection. Patient was brought to the emergency room on 09/25/2018 by her family for evaluation of change in mental status, weakness and lethargy. Clinical course complicated with encephalopathy, possible seizure, shortness of breath, and failing renal function. Given multiple ongoing comorbidities, patient remains at high risk for further complications, deterioration and decline. Code Status: No Code DNR Plan: PLAN: Legal decision maker: Patient is intubated, sedated on mechanical ventilation. It is not known whether patient will ever regain capacity to make medical decisions for himself. According to [place] statute, his spouse Jeanette Garcia would serve as her healthcare proxy. Goals: Aggressive short of no code. Discussion with patient spouse Jose Reid at bedside. Patient spouse states that he has been in communication with other family members and they have prematurely come to a decision to proceed with compassionate withdrawal from life support. Patient spouse states that he will most likely have a definitive answer by tomorrow. He wants to allow his son and grandson to come back later today 09/28/18 to see patient. Anticipatory guidance provided regarding process of compassionately withdrawing from life support and measures taken to make sure that patient is kept comfortable and symptoms are effectively managed. Introduced hospice philosophy and benefits. Patient spouse would like hospice services to be involved at the time of compassionate withdrawal from life support. Patient`s spouse planning to be in the hospital at 0900hrs on 09/29/18. Hospice consult placed. CODE STATUS: No code DNR SYMPTOMS: * Shortness of breath: Patient has history of CHF. Patient went into acute respiratory failure after probable seizure, requiring intubation on 09/27/18. She had witnessed convulsions, possible seizures. ABG revealed severe metabolic acidosis. Patient intubated on 09/27/18. Usually on FiO2 35% * Altered mental status: Patient has history of dementia and was recently being treated for urinary tract infection. Head CT revealed brain atrophy. MRI pending * Physical deconditioning: Progressive. Patient has been hospitalized twice in the past 3 weeks. Since the last hospitalization patient has been debilitated to the point of not being able to ambulate and requiring total assistance with all ADLs. If goals would remain aggressive, patient would benefit from physical therapy. Palliative care will continue to follow the patient during hospital course as condition evolves, to assist patient/decision-maker with understanding of their medical conditions, weighing benefits/burdens of treatment options, for clarification of goals of treatment. Additionally will assist with any symptoms of palliative concern Attestation Attestation: To help prompt me to consider important information that might be impacting today's encounter and assessment, information from prior notes written by myself or my colleagues may have been "brought forward" into today's note. My signature on this note, however, is an attestation that I personally performed the exam, history, and/or decision-making noted today, and, unless otherwise indicated, the interactions with patient, family, and staff as well as the review of records all occurred today. I also attest that the listed assessment and stated plan reflect my best clinical judgment today based on the combination of historical information, prior notes, and today's exam/ interactions. When time spent is documented, it refers only to time spent today by the signer, or if indicated, combined time spent today by collaborating physician/nurse practitioner.
--- NOTE | 2018-09-28 12:46 | P.PNNP ---
Subjective Interval history: Patient was seen, no distress, unresponsive. Intubated on the ventilator. Currently on Levophed. Warming blanket in place. at bedside. Renal function is same as yesterday. <Emelyn Bowser - Last Filed: 09/28/18 12:47> Physical Exam Vital signs: Vital Signs 09/27/18 13:00 09/27/18 13:12 09/27/18 14:00 Temperature Pulse Rate 72 62 Respiratory Rate 20 Blood Pressure Pulse Oximetry 100 09/27/18 15:00 09/27/18 16:00 09/27/18 17:00 Temperature 97.5 F L Pulse Rate 72 76 60 Respiratory Rate 20 Blood Pressure 66/29 L Pulse Oximetry 100 09/27/18 18:00 09/27/18 20:00 09/27/18 20:02 Temperature 98.1 F Pulse Rate 59 L 60 Respiratory Rate 20 20 Blood Pressure 123/64 Pulse Oximetry 100 09/27/18 22:00 09/27/18 23:14 09/28/18 00:00 Temperature Pulse Rate 60 59 L Respiratory Rate 20 20 Blood Pressure 95/46 L Pulse Oximetry 100 09/28/18 01:04 09/28/18 02:00 09/28/18 03:42 Temperature 92.8 F L Pulse Rate 60 Respiratory Rate 20 Blood Pressure Pulse Oximetry 100 09/28/18 04:00 09/28/18 06:00 09/28/18 08:00 Temperature 93.6 F L 97.3 F L Pulse Rate 59 L 60 60 Respiratory Rate 20 20 Blood Pressure 107/51 L 110/49 L Pulse Oximetry 100 100 09/28/18 10:00 09/28/18 11:37 09/28/18 12:00 Temperature 100.2 F H Pulse Rate 65 66 Respiratory Rate 20 20 Blood Pressure 106/46 L Pulse Oximetry 100 100 Intake & Output 09/27/18 09/28/18 09/28/18 18:59 06:59 18:59 Intake Total 2119 / 2204 1250 / 1250 Output Total 100 / 100 50 / 50 Balance 2019 2154 / 2154 1250 / 1250 Weight 85 kg Intake: IV 2119 / 2203 1250 / 1250 NS Inj 1,000 ML @ 42 mls/hr IV. 1000 / 1000 CONT .[id number] [facility] Rx#:[id number] Sodium Bicarbonate 8.4% Inj 150 2000 / 2000 1000 / 1000 MEQ In Sterile Water for Inj 850 ML @ 150 mls/hr IV.CONT . Q6H40M [facility] Rx#:[id number] Cerebyx Inj 100 MGPE In NS Inj 104 / 104 50 ML @ 208 mls/hr IV.SIG Q8HR [facility] Rx#:[id number] Cerebyx Inj 1,000 MGPE In NS 70 / 70 Inj 50 ML @ 280 mls/hr IV.SIG ONCE ONE Rx#:[id number] Levophed-Dextrose 4 mg/250 ml 250 / 250 Drip 4 mg In 250 ml @ 2 MCG/MIN 7.5 mls/hr IV.SIG TITRATE PRN Rx#:[id number] Zosyn 2.25 GM Premix 2.25 gm In 50 / 50 100 / 100 50 ml @ 100 mls/hr IV.SIG Q8H [facility] Rx#:[id number] NS Inj 1,000 ML @ 1000 mls/hr 1000 / 1000 IV.SIG BOLUS [facility] Rx#:[id number] Oral 0 / 0 Output: Urine Amount (Catheter) 100 / 100 50 / 50 Indwelling Urethral Catheter 100 / 100 50 / 50 Other: Date of Last Bowel Movement 09/27/18 09/28/18 09/28/18 # Incontinent Bowel Movements 1 1 - Constitutional chronically ill appearing, obtunded - Routine HEENT Exam ENT: Present: mucous membranes moist - Routine Neck Exam Present: trachea midline. Absent: tracheal deviation - Routine Respiratory Exam Present: patient mechanically ventilated - Routine Cardiovascular Exam Present: S1, S2 - Routine Extremities Exam Present: edema - Routine Neurological Exam Absent: alert - Urinary Catheter Management Indwelling Urethral Catheter Cath placed during this visit: yes Reason for continuing: Hourly intake/output Insertion date: 09/25/18 Insertion time: 10:59 <Emelyn Bowser - Last Filed: 09/28/18 12:47> Vital signs: Vital Signs 09/27/18 22:00 09/27/18 23:14 09/28/18 00:00 Temperature Pulse Rate 60 59 L Respiratory Rate 20 20 Blood Pressure 95/46 L Pulse Oximetry 100 09/28/18 01:04 09/28/18 02:00 09/28/18 03:42 Temperature 92.8 F L Pulse Rate 60 Respiratory Rate 20 Blood Pressure Pulse Oximetry 100 09/28/18 04:00 09/28/18 06:00 09/28/18 08:00 Temperature 93.6 F L 97.3 F L Pulse Rate 59 L 60 60 Respiratory Rate 20 20 Blood Pressure 107/51 L 110/49 L Pulse Oximetry 100 100 09/28/18 10:00 09/28/18 11:37 09/28/18 12:00 Temperature 100.2 F H Pulse Rate 65 66 Respiratory Rate 20 20 Blood Pressure 106/46 L Pulse Oximetry 100 100 09/28/18 14:00 09/28/18 14:33 09/28/18 16:00 Temperature 99.5 F Pulse Rate 68 66 Respiratory Rate 20 20 Blood Pressure 117/49 L Pulse Oximetry 100 100 09/28/18 18:00 Temperature Pulse Rate 63 Respiratory Rate Blood Pressure Pulse Oximetry Intake & Output 09/28/18 09/28/18 09/29/18 06:59 18:59 06:59 Intake Total 2204 / 2204 2602 / 2602 Output Total 50 / 50 0 / 0 Balance 2154 / 2154 2602 / 2602 Weight 85 kg Intake: IV 2204 / 2204 2602 / 2602 Sodium Bicarbonate 8.4% Inj 150 2000 / 2000 2000 / 1999 MEQ In Sterile Water for Inj 850 ML @ 150 mls/hr IV.CONT . Q6H40M [facility] Rx#:[id number] Cerebyx Inj 100 MGPE In NS Inj 104 / 104 52 / 52 50 ML @ 208 mls/hr IV.SIG Q8HR [facility] Rx#:[id number] Levophed-Dextrose 4 mg/250 ml 500 / 500 Drip 4 mg In 250 ml @ 2 MCG/MIN 7.5 mls/hr IV.SIG TITRATE PRN Rx#:[id number] Zosyn 2.25 GM Premix 2.25 gm In 100 / 100 50 / 50 50 ml @ 100 mls/hr IV.SIG Q8H [facility] Rx#:[id number] Oral 0 / 0 Output: Urine Amount (Catheter) 50 / 50 0 / 0 Indwelling Urethral Catheter 50 / 50 0 / 0 Other: Date of Last Bowel Movement 09/28/18 09/28/18 # Incontinent Bowel Movements 1 0 - Urinary Catheter Management Indwelling Urethral Catheter Cath placed during this visit: no <Chapin Hawk - Last Filed: 09/28/18 21:04> Assessment and Plan - Plan JEREL Patient most likely has Chronic Kidney Disease stage IV. Acute on Chronic Kidney Failure could be due to fluid overload. We have no baseline renal function. CT of abdomen showed atrophic right kidney. Renal function is the same as yesterday. Patient would not be a good candidate for dialysis. Monitor fluid and electrolytes. Avoid nephrotoxic agents. UTI Recent ESBL E. coli UTI treated at [facility]. Possible Sepsis. On Zosyn. Encephalopathy Likely related to infection and compounded by dementia. Poor prognosis. <Emelyn Bowser - Last Filed: 09/28/18 12:47> - Attending Attestation patient was seen and examined. Very poor prognosis. Withdrawal of life support is planned. She is terminally ill <Chapin Hawk - Last Filed: 09/28/18 21:04>
--- NOTE | 2018-09-28 19:42 | P.PNNEU ---
Subjective Subjective Comments: no sz. on cerebyx Active Medications: Active Medications Amlodipine Besylate (Norvasc) 5 mg PO DAILY [facility] Last Admin: 09/27/18 11:52 Dose: Not Given Aspirin (Aspirin Chew) 81 mg PO DAILY [facility] Last Admin: 09/28/18 08:54 Dose: 81 mg Atorvastatin Calcium (Lipitor) 20 mg PO HS [facility] Last Admin: 09/27/18 20:33 Dose: 20 mg Carvedilol (Coreg) 12.5 mg PO BID [facility] Last Admin: 09/27/18 08:37 Dose: 12.5 mg Clopidogrel Bisulfate (Plavix) 75 mg PO DAILY [facility] Last Admin: 09/28/18 08:55 Dose: 75 mg Famotidine (Pepcid Pf Inj) 10 mg IV.PUSH Q12HR [facility] Last Admin: 09/28/18 08:54 Dose: 10 mg Hydralazine HCl (Apresoline Inj) 10 mg IV.PUSH Q4H PRN PRN Reason: BLOOD PRESSURE MANAGEMENT Sodium Bicarbonate 150 meq/ (Sterile Water) 1,000 mls @ 150 mls/hr IV.CONT .Q6H40M [facility] Last Admin: 09/28/18 16:45 Dose: 150 mls/hr Midazolam HCl (Versed Inj) 100 mg in 100 mls @ 2 mls/hr IV.CONT TITRATE PRN; Protocol PRN Reason: See protocol Piperacillin/Tazobactam/Dextrose (Zosyn 2.25 Gm Premix) 2.25 gm in 50 mls @ 100 mls/hr IV.SIG Q8H [facility] Last Infusion: 09/28/18 14:29 Dose: Infused Fosphenytoin Sodium 100 mgpe/ (Sodium Chloride) 52 mls @ 208 mls/hr IV.SIG Q8HR [facility] Last Infusion: 09/28/18 14:15 Dose: Infused Norepinephrine Bitartrate (Levophed-Dextrose 4 Mg/250 Ml Drip) 4 mg in 250 mls @ 7.5 mls/hr IV.SIG TITRATE PRN; Protocol PRN Reason: Per Protocol Last Titration: 09/28/18 18:04 Dose: 8 mcg/min, 30 mls/hr Levothyroxine Sodium (Synthroid) 50 mcg PO DAILY@0600 [facility] Last Admin: 09/28/18 05:12 Dose: 50 mcg Lorazepam (Ativan Inj) 1 mg IV.PUSH Q4H PRN PRN Reason: SEIZURES Sodium Chloride (Ns Flush) 2 ml IV.FLUSH BID [facility] Last Admin: 09/28/18 08:55 Dose: 2 ml Sodium Chloride (Ns Flush) 2 ml IV.FLUSH PRN PRN PRN Reason: FLUSH AFTER USING IV ACCESS Terbutaline Sulfate (Brethine Inj) 1 mg SQ UNSCH PRN PRN Reason: For Extravasation Allergies/Adverse Reactions: Allergies Allergy/AdvReac Type Severity Reaction Status Date / Time No Known Allergies Allergy Verified 09/25/18 09:53 Physical Exam Vital signs: Vital Signs 09/27/18 20:00 09/27/18 20:02 09/27/18 22:00 Temperature 98.1 F Pulse Rate 60 60 Respiratory Rate 20 20 Blood Pressure 123/64 Pulse Oximetry 100 09/27/18 23:14 09/28/18 00:00 09/28/18 01:04 Temperature 92.8 F L Pulse Rate 59 L Respiratory Rate 20 20 Blood Pressure 95/46 L Pulse Oximetry 100 09/28/18 02:00 09/28/18 03:42 09/28/18 04:00 Temperature 93.6 F L Pulse Rate 60 59 L Respiratory Rate 20 20 Blood Pressure 107/51 L Pulse Oximetry 100 100 09/28/18 06:00 09/28/18 08:00 09/28/18 10:00 Temperature 97.3 F L Pulse Rate 60 60 65 Respiratory Rate 20 Blood Pressure 110/49 L Pulse Oximetry 100 09/28/18 11:37 09/28/18 12:00 09/28/18 14:00 Temperature 100.2 F H Pulse Rate 66 68 Respiratory Rate 20 20 Blood Pressure 106/46 L Pulse Oximetry 100 100 09/28/18 14:33 09/28/18 16:00 09/28/18 18:00 Temperature 99.5 F Pulse Rate 66 63 Respiratory Rate 20 20 Blood Pressure 117/49 L Pulse Oximetry 100 100 Intake & Output 09/28/18 09/28/18 09/29/18 06:59 18:59 06:59 Intake Total 2204 / 2204 2602 / 2602 Output Total 50 / 50 0 / 0 Balance 2154 / 2154 2602 / 2602 Weight 85 kg Intake: IV 2204 / 2204 2602 / 2602 Sodium Bicarbonate 8.4% Inj 150 1999 / 1999 1999 / 1999 MEQ In Sterile Water for Inj 850 ML @ 150 mls/hr IV.CONT . Q6H40M [facility] Rx#:[id number] Cerebyx Inj 100 MGPE In NS Inj 104 / 104 52 / 52 50 ML @ 208 mls/hr IV.SIG Q8HR [facility] Rx#:[id number] Levophed-Dextrose 4 mg/250 ml 500 / 500 Drip 4 mg In 250 ml @ 2 MCG/MIN 7.5 mls/hr IV.SIG TITRATE PRN Rx#:[id number] Zosyn 2.25 GM Premix 2.25 gm In 100 / 100 50 / 50 50 ml @ 100 mls/hr IV.SIG Q8H [facility] Rx#:[id number] Oral 0 / 0 Output: Urine Amount (Catheter) 50 / 50 0 / 0 Indwelling Urethral Catheter 50 / 50 0 / 0 Other: Date of Last Bowel Movement 09/28/18 09/28/18 # Incontinent Bowel Movements 1 0 - Routine Neurological Exam nonresponsive PERRL MOTOR no spontaneous movement - Urinary Catheter Management Indwelling Urethral Catheter Cath placed during this visit: yes Reason for continuing: Hourly intake/output Insertion date: 09/25/18 Insertion time: 10:59 Objective Laboratory Results - last 24 hr 09/28/18 09/28/18 09/28/18 00:04 06:24 06:30 WBC RBC Hgb Hct MCV MCH MCHC RDW Plt Count MPV Puncture Site Patient Temperature O2 Saturation ABG pH ABG pCO2 ABG pO2 ABG HCO3 ABG O2 Content ABG Base Excess ABG Methemoglobin Niels Test Hemoglobin Carboxyhemoglobin O2 Delivery Device Vent Setting Critical Value Sodium Potassium Chloride Carbon Dioxide Anion Gap BUN Creatinine Estimated GFR POC Glucose 192 H 162 H Random Glucose Lactic Acid Calcium Calcium Adj for Albumin Total Bilirubin AST ALT Alkaline Phosphatase Total Protein Albumin Phenytoin 7.6 L 09/28/18 09/28/18 09/28/18 09:48 09:48 09:48 WBC 22.0 H D RBC 2.84 L Hgb 9.6 L Hct 28.7 L MCV 101.3 H MCH 33.8 MCHC 33.3 RDW 16.7 Plt Count 127 L MPV 7.5 Puncture Site Patient Temperature O2 Saturation ABG pH ABG pCO2 ABG pO2 ABG HCO3 ABG O2 Content ABG Base Excess ABG Methemoglobin Niels Test Hemoglobin Carboxyhemoglobin O2 Delivery Device Vent Setting Critical Value Sodium 141 Potassium 3.6 Chloride 109 H D Carbon Dioxide 19.4 L Anion Gap 13 BUN 80 H Creatinine 2.62 H Estimated GFR 17 L POC Glucose Random Glucose 166 H Lactic Acid 2.4 H Calcium 7.2 L* Calcium Adj for Albumin 9.2 Total Bilirubin 0.8 AST 22 ALT 10 Alkaline Phosphatase 102 Total Protein 4.1 L Albumin 1.5 L Phenytoin 09/28/18 09/28/18 10:12 11:57 WBC RBC Hgb Hct MCV MCH MCHC RDW Plt Count MPV Puncture Site Right radial Patient Temperature 98.6 O2 Saturation 95 ABG pH 7.48 H ABG pCO2 23 L* ABG pO2 94 ABG HCO3 17 L ABG O2 Content 12.8 ABG Base Excess -5.9 L ABG Methemoglobin 1.7 Niels Test Present Hemoglobin 9.4 L Carboxyhemoglobin 1.2 O2 Delivery Device Ventilator Vent Setting Critical Value Yes Sodium Potassium Chloride Carbon Dioxide Anion Gap BUN Creatinine Estimated GFR POC Glucose 141 H Random Glucose Lactic Acid Calcium Calcium Adj for Albumin Total Bilirubin AST ALT Alkaline Phosphatase Total Protein Albumin Phenytoin Microbiology 09/27/18 13:49 Aerobic Blood Culture - Preliminary Blood - Peripheral No growth in 1 day Anaerobic Blood Culture - Preliminary No growth in 1 day 09/25/18 11:15 Aerobic Blood Culture - Preliminary Blood - Peripheral No growth in 3 days Anaerobic Blood Culture - Preliminary No growth in 3 days 09/25/18 11:20 Aerobic Blood Culture - Preliminary Blood - Peripheral No growth in 3 days Anaerobic Blood Culture - Preliminary No growth in 3 days Review/Management - Review/Management Plan: continue current dose cerebyx. Level corrected for low albumin is 19
--- NOTE | 2018-09-29 04:08 | XR ---
EXAM DATE: 09/29/2018 3:51 AM EST AGE/SEX: 83 years / Female INDICATIONS: Shortness of breath, possible pulmonary disease. CLINICAL DATA: This is the patient's subsequent encounter. Patient reports that signs and symptoms h ave been present for 4 - 6 days and indicates a pain score of Nonresponsive. MEDICAL/SURGICAL HISTORY: Diabetes. Hypercholesterolemia. Hypertension. Dementia. Gout. Hypo thyroidism. None. COMPARISON: [facility] – [place] 1[place] S[place], 09/27/2018. [facility] – [place] 1V SINGLE [place], 09/25/2018. . FINDINGS: The ET tube, NG tube, and left subclavian line are well placed. The heart size is normal. There is in creased density at the left base silhouetting the left hemidiaphragm. There some minimal blunting of the right costophrenic angle. There is a high right humeral head seen on the right side and chronic d eformity at the left proximal humerus. CONCLUSION: Increased density at the left base likely related to a combination of atelectasis, consolidation, and confusion. Possible mild effusion with blunting of the right costophrenic angle. Electronically signed by: Delmar Beckwith MD Board Certified Radiologist 09/29/2018 4:07 AM EST
[2018-09-29] MEDS: Fosphenytoin Inj 100 MGPE in Sodium Chlor 0.9% Inj 50 ML IV.SIG SCH (05:05)
[2018-09-29 05:08] LABS: Hematocrit 26.4 % (35.0-46.0); Mean Corpuscular HGB Conc 34.3 % (32.0-36.0); Mean Corpuscular Hemoglobin 33.5 pg (27.0-34.0); Mean Corpuscular Volume 97.7 fL (80.0-100.0); Mean Platelet Volume 7.6 fL (7.0-11.0); Platelet Count 98 th/mm3 (150-450); Red Cell Distribution Width 15.7 % (11.6-17.2); White Blood Count 17.6 th/mm3 (4.0-11.0)
[2018-09-29] MEDS: Levothyroxine 50 MCG Tablet PO SCH (05:31)
[2018-09-29 05:34] LABS: Albumin 1.4 g/dL (3.4-5.0); Calcium 7.1 mg/dL (8.5-10.1); Carbon Dioxide 23.4 meq/L (21.0-32.0); Potassium 3.2 meq/L (3.5-5.1); Total Protein 3.9 g/dL (6.4-8.2)
[2018-09-29] MEDS: Piperacil/Tazo 2.25 GM Premix 2.25 GM/50 ML PIGGYBACK IV.SIG SCH (06:00)
[2018-09-29] MEDS: Sodium Bicarbonate 8.4% Inj 150 MEQ in Water for Inj, Sterile 850 ML IV.CONT SCH (06:00)
--- NOTE | 2018-09-29 07:00 | P.PNCC ---
Subjective Subjective Remarks/Hospital Course: Patient is an 83 year old female with a prior medical history of diabetes, dementia, hypertension, CHF, hypothyroidism, history of coronary artery disease status post stent placement, and pacemaker placement. She was recently admitted and discharged from [facility] after treatment for UTI with ESBL Klebsiella. During the hospitalization the patient was admitted for acute encephalopathy which was thought to be due to to the UTI. She had encephalopathy during sepsis. However post discharge she continued to decline with increasing weakness and lethargy. Patient was admitted to hospitalist service on 09/25/2018 for mental status changes. Admission CAT scan was negative for any acute findings. Patient was placed on Invanz for recent ESBL E. coli UTI. Also patient was scheduled to get an MRI of the brain today for altered mental status workup. Today a.m. per Dr. Santana the patient was talking. Towards noon, stated that he witnessed his go into convulsions and became unresponsive. A halicat was called as the patient was unresponsive and hypotensive after the convulsion episode. Blood pressure was 66/40 obtunded not protecting airway. A stat ABG showed a pH of 7.13 PCO2 of 37 and base excess -15. Patient was emergently brought to the [facility] [place] [facility] where I met her. Clearly was not protecting airway. Because of severe metabolic acidosis I gave 1 amp of bicarb and started Levophed to keep map above 65 prior to intubation. Wide open normal saline fluid boluses were also started. Intubated and placed the patient on mechanical ventilation. Following this I also placed a right subclavian central line. Discussed with ID Invanz discontinued due to possible seizures and Zosyn started. Stat EEG ordered 09/28: Patient remains very critical. She is unresponsive comatose not on any sedation. Currently on 9 mcg/min of Levophed to keep map above 65. Almost anuric. CBC CMP and lactic acid pending today. Prognosis appears very poor. 09/29: Remains encephalopathic. No change in medical status overnight . Levophed continue to maintain map greater than 65. Tentative plan for family compassionate withdrawal this a.m. Objective Vital Signs / I&O: Vital Signs 09/28/18 08:00 09/28/18 10:00 09/28/18 11:37 Temperature 97.3 F L Pulse Rate 60 65 Respiratory Rate 20 20 Blood Pressure 110/49 L Pulse Oximetry 100 100 09/28/18 12:00 09/28/18 14:00 09/28/18 14:33 Temperature 100.2 F H Pulse Rate 66 68 Respiratory Rate 20 20 Blood Pressure 106/46 L Pulse Oximetry 100 100 09/28/18 16:00 09/28/18 18:00 09/28/18 19:44 Temperature 99.5 F Pulse Rate 66 63 Respiratory Rate 20 20 Blood Pressure 117/49 L Pulse Oximetry 100 100 09/28/18 20:00 09/28/18 22:00 09/28/18 23:33 Temperature 98.1 F Pulse Rate 80 67 Respiratory Rate 16 20 Blood Pressure 145/80 H Pulse Oximetry 100 100 09/29/18 00:00 09/29/18 02:00 09/29/18 03:18 Temperature 97.2 F L Pulse Rate 62 67 Respiratory Rate 13 20 Blood Pressure 146/52 H Pulse Oximetry 100 100 09/29/18 04:00 09/29/18 06:00 Temperature 97.7 F Pulse Rate 72 71 Respiratory Rate 14 Blood Pressure 123/56 L Pulse Oximetry 100 Intake & Output 09/28/18 09/28/18 09/29/18 06:59 18:59 06:59 Intake Total 2204 / 2204 2602 / 2602 2404 / 2404 Output Total 50 / 50 0 / 0 50 / 50 Balance 2154 / 2154 2602 / 2602 2354 / 2354 Weight 85 kg 79.5 kg Intake: IV 2204 / 2204 2602 / 2602 2404 / 2404 Sodium Bicarbonate 8.4% Inj 150 1999 / 1999 1999 / 1999 1999 / 1999 MEQ In Sterile Water for Inj 850 ML @ 150 mls/hr IV.CONT . Q6H40M MAMI Rx#:[id number] Cerebyx Inj 100 MGPE In NS Inj 104 / 104 52 / 52 104 / 104 50 ML @ 208 mls/hr IV.SIG Q8HR MAMI Rx#:[id number] Levophed-Dextrose 4 mg/250 ml 500 / 500 250 / 250 Drip 4 mg In 250 ml @ 2 MCG/MIN 7.5 mls/hr IV.SIG TITRATE PRN Rx#:[id number] Zosyn 2.25 GM Premix 2.25 gm In 100 / 100 50 / 50 50 / 50 50 ml @ 100 mls/hr IV.SIG Q8H MAMI Rx#:[id number] Oral 0 / 0 0 / 0 Output: Urine Amount (Catheter) 50 / 50 0 / 0 50 / 50 Indwelling Urethral Catheter 50 / 50 0 / 0 50 / 50 Other: Date of Last Bowel Movement 09/28/18 09/28/18 09/28/18 # Incontinent Bowel Movements 1 0 0 Result Diagrams: 09/29/18 04:40 09/29/18 04:40 Other Results: Laboratory Results WBC 17.6 th/mm3 (4.0-11.0) H 09/29/18 04:40 RBC 2.70 mil/mm3 (4.00-5.30) L 09/29/18 04:40 Hgb 9.0 gm/dL (11.6-15.3) L 09/29/18 04:40 Hct 26.4 % (35.0-46.0) L 09/29/18 04:40 MCV 97.7 fL (80.0-100.0) D 09/29/18 04:40 MCH 33.5 pg (27.0-34.0) 09/29/18 04:40 MCHC 34.3 % (32.0-36.0) 09/29/18 04:40 RDW 15.7 % (11.6-17.2) 09/29/18 04:40 Plt Count 98 th/mm3 (150-450) L 09/29/18 04:40 MPV 7.6 fL (7.0-11.0) 09/29/18 04:40 Neut % (Auto) 73.0 % (16.0-70.0) H 09/27/18 13:03 Lymph % (Auto) 19.9 % (9.0-44.0) 09/27/18 13:03 [place] % (Auto) 4.2 % (0.0-8.0) 09/27/18 13:03 Eos % (Auto) 2.0 % (0.0-4.0) 09/27/18 13:03 Baso % (Auto) 0.9 % (0.0-2.0) 09/27/18 13:03 Neut # (Auto) 7.1 th/mm3 (1.8-7.7) 09/27/18 13:03 Lymph # (Auto) 1.9 th/mm3 (1.0-4.8) 09/27/18 13:03 [place] # (Auto) 0.4 th/mm3 (0.0-0.9) 09/27/18 13:03 Eos # (Auto) 0.2 th/mm3 (0.0-0.4) 09/27/18 13:03 Baso # (Auto) 0.1 th/mm3 (0.0-0.2) 09/27/18 13:03 WBC Differential . 09/27/18 13:03 Differential Comment Auto diff final 09/27/18 13:03 PT 12.4 sec (9.8-11.6) H 09/25/18 11:20 INR 1.2 Ratio 09/25/18 11:20 APTT 40.6 sec (23.4-31.7) H 09/25/18 11:20 Puncture Site Right radial 09/28/18 10:12 Patient Temperature 98.6 09/28/18 10:12 O2 Saturation 95 % (90-100) 09/28/18 10:12 ABG pH 7.48 (7.380-7.420) H 09/28/18 10:12 ABG pCO2 23 mmHg (38-42) L* 09/28/18 10:12 ABG pO2 94 mmHG (61-120) 09/28/18 10:12 ABG HCO3 17 mmol/L (22-26) L 09/28/18 10:12 ABG O2 Content 12.8 Vol % (12.0-20.0) 09/28/18 10:12 ABG Base Excess -5.9 mmol/L (-2-2) L 09/28/18 10:12 ABG Methemoglobin 1.7 % (0-2) 09/28/18 10:12 Niels Test Present 09/28/18 10:12 Hemoglobin 9.4 G/DL (12.0-16.0) L 09/28/18 10:12 Carboxyhemoglobin 1.2 % (0-4) 09/28/18 10:12 O2 Delivery Device Ventilator 09/28/18 10:12 Liter Flow 15.00 L/M 09/27/18 12:23 Vent Setting 09/28/18 10:12 Inspired O2 60 % 09/27/18 13:18 Critical Value Yes 09/28/18 10:12 Sodium 141 meq/L (136-145) 09/29/18 04:40 Potassium 3.2 meq/L (3.5-5.1) L 09/29/18 04:40 Chloride 103 meq/L (98-107) 09/29/18 04:40 Carbon Dioxide 23.4 meq/L (21.0-32.0) 09/29/18 04:40 Anion Gap 15 meq/L (5-15) 09/29/18 04:40 BUN 81 mg/dL (7-18) H 09/29/18 04:40 Creatinine 2.93 mg/dL (0.50-1.00) H 09/29/18 04:40 Estimated GFR 15 mL/min (>89) L 09/29/18 04:40 POC Glucose 141 mg/dl (68-110) H 09/28/18 11:57 Random Glucose 166 mg/dL (74-106) H 09/29/18 04:40 Lactic Acid 2.4 mmol/L (0.4-2.0) H 09/28/18 09:48 Calcium 7.1 mg/dL (8.5-10.1) L* 09/29/18 04:40 Calcium Adj for Albumin 9.2 mg/dL (8.5-10.1) 09/29/18 04:40 Magnesium 2.2 mg/dL (1.5-2.5) 09/26/18 06:52 Total Bilirubin 0.9 mg/dL (0.2-1.0) 09/29/18 04:40 AST 22 U/L (15-37) 09/29/18 04:40 ALT 8 U/L (10-53) L 09/29/18 04:40 Alkaline Phosphatase 98 U/L (45-117) 09/29/18 04:40 Ammonia 16 mcmol/L (11-32) 09/26/18 06:52 Total Creatine Kinase 118 U/L (26-192) 09/25/18 10:18 CK-MB (CK-2) 1.3 ng/mL (0.5-3.6) 09/25/18 10:18 Troponin I 0.04 ng/mL (0.02-0.05) 09/27/18 13:03 B-Natriuretic Peptide 246 pg/mL (0-100) H 09/25/18 10:18 Total Protein 3.9 g/dL (6.4-8.2) L 09/29/18 04:40 Albumin 1.4 g/dL (3.4-5.0) L 09/29/18 04:40 Lipase 61 U/L (73-393) L 09/25/18 10:18 TSH 4.330 uIU/mL (0.358-3.740) H 09/25/18 10:18 Urine Color Yellow (Yellw/Straw) 09/25/18 10:40 Urine Clarity Cloudy (Clear) H 09/25/18 10:40 Urine pH 5.0 (5.0-8.5) 09/25/18 10:40 Ur Specific [place] 1.012 (1.002-1.035) 09/25/18 10:40 Urine Protein 100 mg/dL (Neg-Trace) H 09/25/18 10:40 Urine Glucose (UA) 50 mg/dL (Negative) 09/25/18 10:40 Urine Ketones Negative mg/dL (Negative) 09/25/18 10:40 Urine Occult Blood Moderate (Negative) H 09/25/18 10:40 Urine Nitrate Negative (Negative) 09/25/18 10:40 Urine Bilirubin Negative (Negative) 09/25/18 10:40 Urine Urobilinogen Less than 2 mg/dL (Less than 2) 09/25/18 10:40 Ur Leukocyte Esterase Moderate (Negative) H 09/25/18 10:40 Urine RBC 30 /hpf (0-3) H 09/25/18 10:40 Urine WBC 55 /hpf (0-5) H 09/25/18 10:40 Urine WBC Clumps Few (None) H 09/25/18 10:40 Ur Squamous Epith Cells 1 /hpf (0-5) 09/25/18 10:40 Amorphous Sediment Many /hpf (None) H 09/25/18 10:40 Urine Bacteria Moderate /hpf (None) H 09/25/18 10:40 Hyaline Casts 19 /lpf (0-3) 09/25/18 10:40 Urine Mucus Few /lpf (Occasional) H 09/25/18 10:40 Micro UA Comment Cath-culture ind 09/25/18 10:40 Ur Microscopic Review Not Reportable 09/25/18 10:40 Urine Culture Comments Cath-cult indicated 09/25/18 10:40 Phenytoin 7.6 mcg/mL (10.0-20.0) L 09/28/18 06:30 Impressions Abdomen/Bladder Ultrasound 09/27/18 00:00 CONCLUSION: 1. Atrophic right kidney 2. Increased left renal cortical echogenicity 3. No evidence of hydronephrosis Head CT 09/27/18 12:55 CONCLUSION: 1. Stable appearance with no acute hemorrhage, mass or infarction. 2. Atrophy and chronic small vessel ischemic changes. 3. Mild sinusitis. . Chest X-Ray 09/29/18 06:00 CONCLUSION: Increased density at the left base likely related to a combination of atelectasis, consolidation, and confusion. Possible mild effusion with blunting of the right costophrenic angle. Objective Remarks: [id number]old female who is unresponsive intubated not on any sedation HEENT atraumatic, normocephalic. Pupils equal. Orotracheally intubated Neck: No JVD. Neck supple Resp: Air entry equal but diminished bilaterally. Bilateral few coarse rhonchi CVS: S1-S2 normal no murmurs. Currently on Levophed at 9 mcg/min Abdomen soft, nontender Extremities generalized anasarca with weeping of extremities Neuro: Patient is unresponsive no spontaneous eye opening no response to pain. Very slight withdrawal of extremities to deep noxious stimuli. No purposeful movements noted Assessment and Plan - Problem List (1) Thrombocythemia Code(s): D47.3 - Essential (hemorrhagic) thrombocythemia Status: Acute (2) Protein-calorie malnutrition, severe Code(s): E43 - Unspecified severe protein-calorie malnutrition Status: Acute - Assessment and Plan Plan: ASSESSMENT: Acute metabolic encephalopathy Acute respiratory failure New onset seizures Severe metabolic acidosis Septic shock Acute kidney failure Recent ESBL E. coli UTI Dementia Diabetes Gout Dyslipidemia Hypertension Hypothyroid Severe protein calorie malnutrition Thrombocytopenia PLAN: NEURO: -Severe metabolic encephalopathy -Neurology consult following continue fosphenytoin -Seizure it could be related to Invanz, this had been discontinued -EEG showed encephalopathy no seizures. Follow Dilantin levels, subtherapeutic 7.6 -Unable to perform MRI secondary to pacemaker -09/29 Currently remains off all sedation.PRN IV Ativan. RESP: -Emergently intubated and placed on mechanical ventilation due to inability to protect airway -PRVC/AC. Ventilator bundle -DuoNeb every 6 hours as needed -Sputum culture CV: -Continue bicarb infusion at 150 mL/h -Levophed to keep map above 65 -Repeat lactic acid today GI: -N.p.o., IV famotidine : -Monitor renal function closely. Polanco catheter. -Nephrology is following. Dr. Hawk -Renal ultrasound did not show any evidence of hydronephrosis -Patient remains oliguric to anuric, however I do not think she is a candidate for hemodialysis due to overall poor prognosis ID: -Antibiotics DCd Invanz started Zosyn per Dr. Vanegas -Blood urine cultures on admission are negative. Repeat blood and sputum culture pending -Recent ESBL E. coli UTI treated at [facility] HEME: -Monitor CBC, coags ENDO: -Electrolyte replacement if needed PROPH: -Bilateral lower extremity SCDs. Subcu heparin for DVT prophylaxis. IV famotidine for GI prophylaxis LINES: -Right subclavian central line placed 09/27/2018 -Endotracheal intubation 09/27/2018 My billing statement This patient remains critically ill with one or more organ systems which are or may become a threat to life. I have spent in excess of 31 minutes discontinuously in the care and management of this patient. This time is exclusive of procedures, and includes, but is not limited to, evaluation of the patient, review of the medical record, discussions with family, consultants, nursing staff, or respiratory therapy, and documentation in the medical record. Prognosis is grave at this time with poor chance of survival. Patient is in multiorgan failure including neurological system, respiratory failure, cardiac/ circulatory failure, septic shock and renal failure. Highly unlikely patient will survive this episode tentative plan per family request compassionate withdrawal today Code Status: No code, DNR Discussed Condition With: No family at bedside at this time,discussed with INVASIVE PHYSICIAN at bedside
[2018-09-29] MEDS: Sodium Chloride 0.9% 2 ML Flush BID IV.FLUSH SCH (08:39)
[2018-09-29] MEDS: Famotidine PF Inj 20 MG/2 ML Vial IV.PUSH SCH (08:40)
--- NOTE | 2018-09-29 09:41 | P.PN ---
Subjective Interval history: 09/29: This is a present discussion with family at bedside, [facility] and hospice also present. Provided medical status update. Decision made by Mr. Rees and family to proceed with comfort care measures. All questions answered. Physical Exam Vital signs: Vital Signs 09/28/18 10:00 09/28/18 11:37 09/28/18 12:00 Temperature 100.2 F H Pulse Rate 65 66 Respiratory Rate 20 20 Blood Pressure 106/46 L Pulse Oximetry 100 100 09/28/18 14:00 09/28/18 14:33 09/28/18 16:00 Temperature 99.5 F Pulse Rate 68 66 Respiratory Rate 20 20 Blood Pressure 117/49 L Pulse Oximetry 100 100 09/28/18 18:00 09/28/18 19:44 09/28/18 20:00 Temperature 98.1 F Pulse Rate 63 80 Respiratory Rate 20 16 Blood Pressure 145/80 H Pulse Oximetry 100 100 09/28/18 22:00 09/28/18 23:33 09/29/18 00:00 Temperature 97.2 F L Pulse Rate 67 62 Respiratory Rate 20 13 Blood Pressure 146/52 H Pulse Oximetry 100 100 09/29/18 02:00 09/29/18 03:18 09/29/18 04:00 Temperature 97.7 F Pulse Rate 67 72 Respiratory Rate 20 14 Blood Pressure 123/56 L Pulse Oximetry 100 100 09/29/18 06:00 09/29/18 07:24 09/29/18 08:00 Temperature 99.5 F Pulse Rate 71 75 Respiratory Rate 20 20 Blood Pressure 102/50 L Pulse Oximetry 100 100 Intake & Output 09/28/18 09/29/18 09/29/18 18:59 06:59 18:59 Intake Total 2602 / 2602 2454 / 2454 Output Total 0 / 0 50 / 50 Balance 2602 / 2602 2404 / 2404 Weight 79.5 kg Intake: IV 2602 / 2602 2454 / 2454 Sodium Bicarbonate 8.4% Inj 150 2000 / 1999 2000 / 1999 MEQ In Sterile Water for Inj 850 ML @ 150 mls/hr IV.CONT . Q6H40M MAMI Rx#:[id number] Cerebyx Inj 100 MGPE In NS Inj 52 / 52 104 / 104 50 ML @ 208 mls/hr IV.SIG Q8HR MAMI Rx#:[id number] Levophed-Dextrose 4 mg/250 ml 500 / 500 250 / 250 Drip 4 mg In 250 ml @ 2 MCG/MIN 7.5 mls/hr IV.SIG TITRATE PRN Rx#:[id number] Zosyn 2.25 GM Premix 2.25 gm In 50 / 50 100 / 100 50 ml @ 100 mls/hr IV.SIG Q8H MAMI Rx#:[id number] Oral 0 / 0 0 / 0 Output: Urine Amount (Catheter) 0 / 0 50 / 50 Indwelling Urethral Catheter 0 / 0 50 / 50 Other: Date of Last Bowel Movement 09/28/18 09/28/18 09/28/18 # Incontinent Bowel Movements 0 0 - Urinary Catheter Management Indwelling Urethral Catheter Cath placed during this visit: yes Reason for continuing: Hourly intake/output Insertion date: 09/25/18 Insertion time: 10:59 Results - Labs CBC & Chem 7: 09/29/18 04:40 09/29/18 04:40 Laboratory Results - last 24 hr 09/28/18 09/28/18 09/28/18 09:48 09:48 09:48 WBC 22.0 H D RBC 2.84 L Hgb 9.6 L Hct 28.7 L MCV 101.3 H MCH 33.8 MCHC 33.3 RDW 16.7 Plt Count 127 L MPV 7.5 Puncture Site Patient Temperature O2 Saturation ABG pH ABG pCO2 ABG pO2 ABG HCO3 ABG O2 Content ABG Base Excess ABG Methemoglobin Niels Test Hemoglobin Carboxyhemoglobin O2 Delivery Device Vent Setting Critical Value Sodium 141 Potassium 3.6 Chloride 109 H D Carbon Dioxide 19.4 L Anion Gap 13 BUN 80 H Creatinine 2.62 H Estimated GFR 17 L POC Glucose Random Glucose 166 H Lactic Acid 2.4 H Calcium 7.2 L* Calcium Adj for Albumin 9.2 Total Bilirubin 0.8 AST 22 ALT 10 Alkaline Phosphatase 102 Total Protein 4.1 L Albumin 1.5 L 09/28/18 09/28/18 09/29/18 10:12 11:57 04:40 WBC 17.6 H RBC 2.70 L Hgb 9.0 L Hct 26.4 L MCV 97.7 D MCH 33.5 MCHC 34.3 RDW 15.7 Plt Count 98 L MPV 7.6 Puncture Site Right radial Patient Temperature 98.6 O2 Saturation 95 ABG pH 7.48 H ABG pCO2 23 L* ABG pO2 94 ABG HCO3 17 L ABG O2 Content 12.8 ABG Base Excess -5.9 L ABG Methemoglobin 1.7 Niels Test Present Hemoglobin 9.4 L Carboxyhemoglobin 1.2 O2 Delivery Device Ventilator Vent Setting Critical Value Yes Sodium Potassium Chloride Carbon Dioxide Anion Gap BUN Creatinine Estimated GFR POC Glucose 141 H Random Glucose Lactic Acid Calcium Calcium Adj for Albumin Total Bilirubin AST ALT Alkaline Phosphatase Total Protein Albumin 09/29/18 04:40 WBC RBC Hgb Hct MCV MCH MCHC RDW Plt Count MPV Puncture Site Patient Temperature O2 Saturation ABG pH ABG pCO2 ABG pO2 ABG HCO3 ABG O2 Content ABG Base Excess ABG Methemoglobin Niels Test Hemoglobin Carboxyhemoglobin O2 Delivery Device Vent Setting Critical Value Sodium 141 Potassium 3.2 L Chloride 103 Carbon Dioxide 23.4 Anion Gap 15 BUN 81 H Creatinine 2.93 H Estimated GFR 15 L POC Glucose Random Glucose 166 H Lactic Acid Calcium 7.1 L* Calcium Adj for Albumin 9.2 Total Bilirubin 0.9 AST 22 ALT 8 L Alkaline Phosphatase 98 Total Protein 3.9 L Albumin 1.4 L Microbiology 09/27/18 13:49 Blood - Peripheral Aerobic Blood Culture - Preliminary No growth in 1 day 09/27/18 13:49 Blood - Peripheral Anaerobic Blood Culture - Preliminary No growth in 1 day 09/25/18 11:15 Blood - Peripheral Aerobic Blood Culture - Preliminary No growth in 3 days 09/25/18 11:15 Blood - Peripheral Anaerobic Blood Culture - Preliminary No growth in 3 days 09/25/18 11:20 Blood - Peripheral Aerobic Blood Culture - Preliminary No growth in 3 days 09/25/18 11:20 Blood - Peripheral Anaerobic Blood Culture - Preliminary No growth in 3 days - Imaging Impressions Chest X-Ray 09/29/18 06:00 CONCLUSION: Increased density at the left base likely related to a combination of atelectasis, consolidation, and confusion. Possible mild effusion with blunting of the right costophrenic angle. Assessment and Plan - Assessment (1) Thrombocythemia Code(s): D47.3 - Essential (hemorrhagic) thrombocythemia Status: Acute (2) Protein-calorie malnutrition, severe Code(s): E43 - Unspecified severe protein-calorie malnutrition Status: Acute
[2018-09-29] MEDS ORDERED: Hyoscyamine Inj 0.5 MG/ML Ampul IV.PUSH ONE (09:46)
[2018-09-29] MEDS ORDERED: Acetaminophen 650 MG Supp RECTAL PRN (09:46)
[2018-09-29] MEDS ORDERED: Morphine Sulfate Inj 8 MG/ML Vial IV.PUSH ONE ×2 (09:46→11:00)
[2018-09-29] MEDS ORDERED: Hyoscyamine Inj 0.5 MG/ML Ampul IV.PUSH PRN (09:46)
[2018-09-29] MEDS: Morphine Inj 4 MG/ML Vial IV.PUSH PRN ×4 (12:40→16:47)
[2018-09-29 16:05] VITALS: PULSE 102
[2018-09-29 16:06] VITALS: BP 41/25; RESP 19; TEMP 99.7; O2SAT 90
--- NOTE | 2018-09-29 18:10 | P.DN ---
- Provider Primary care physician: Rylan Mcknight Admitting clinician: Monica Jacobsen Consults: 09/25/18 14:08 Consult to Infectious Diseases Routine Consulting Provider: Clint Vanegas Reason for Consultation: ESBL Klebsiella recently. Patient admitted for Acute Encephalopathy with another UTI. Notified:: Service Spoke with:: Alba Date Notified:: 09/25/18 Time Notified:: 14:26 Ordering Provider: BRAULIO 09/25/18 14:10 HUB Only Consult Order Routine Consulting Provider: dE Ward 09/25/18 15:32 HUB Only Consult Order Routine Consulting Provider: Ed Ward 09/27/18 08:37 Consult to Cardiology Routine Consulting Provider: Александр Colon Does the patient have a Laborer Syrup Machine who follows them?: No Preferred Seed Laboratory Assistant:: Independent Freight Agent Physician Reason for Consultation: consult for MRI pacemaker Notified:: Office Spoke with:: UZIEL Date Notified:: 09/27/18 Time Notified:: 08:56 Ordering Provider: COSME 09/27/18 09:43 Consult to Palliative Care Routine Consulting Provider: Gilda Carlin Reason for Consultation: determine goals of care seem like chrnic- progressive decline in 4 weeks Notified:: Service Spoke with:: FLO Date Notified:: 09/27/18 Time Notified:: 09:50 Ordering Provider: COSME 09/27/18 09:44 Consult to Nephrology Routine Consulting Provider: Chapin Hawk Does the patient have a Agriculture Teacher who follows them?: No Preferred Nephrology National Coverage Specialist:: Independent Freight Agent Physician Reason for Consultation: worsening renal functions - at one point was told funvtion 15% Notified:: Service Spoke with:: FLO Date Notified:: 09/27/18 Time Notified:: 09:50 Ordering Provider: COSME 09/27/18 14:48 Consult to Neurology Routine Consulting Provider: Itz Shah Reason for Consultation: New onset seizures Notified:: Service Spoke with:: Christy Date Notified:: 09/27/18 Time Notified:: 14:50 Ordering Provider: MICHELLE Pronouncing clinician: Miriam Parker - Date and Time Date of admission: 09/25/18 13:11 - Summary Brief History: This patient is an 83-year-old female with a diagnosis of hypertension, CHF unknown ejection fraction, hypothyroidism, insulin-dependent diabetes. The patient was recently discharged from [facility] with ESBL Klebsiella UTI as per some documentation that was provided by the patient's . During the hospitalization the patient was admitted for acute encephalopathy which was thought to be due to to the UTI. The patient's provided a prescription that was given to the patient for Invanz that the patient was to receive at home for her urinary tract infection. The patient will receive 1 day of the IV antibiotic while at home and her symptoms of encephalopathy and weakness got worse and she was brought into the emergency department for evaluation. She denies any fevers or chills. Due to the patient's worsening mental status she was brought into the ED. She has also been having a cough that is nonproductive as per the patient's . In the emergency department a Polanco catheter was placed which shows cloudy urine draining. Past medical history hypertension, CHF unknown ejection fraction, insulin- dependent diabetes, hypothyroidism Past surgical history status post pacemaker placement Social history the patient is a history of tobacco smoking, denies any history of alcohol use or drug use. Family history noncontributory Result Diagrams: 09/29/18 04:40 09/29/18 04:40 Significant Findings: Abnormal Lab Results 09/29/18 09/29/18 04:40 04:40 WBC 17.6 H RBC 2.70 L Hgb 9.0 L Hct 26.4 L MCV 97.7 D MCH 33.5 MCHC 34.3 RDW 15.7 Plt Count 98 L MPV 7.6 Sodium 141 Potassium 3.2 L Chloride 103 Carbon Dioxide 23.4 Anion Gap 15 BUN 81 H Creatinine 2.93 H Estimated GFR 15 L Random Glucose 166 H Calcium 7.1 L* Calcium Adj for Albumin 9.2 Total Bilirubin 0.9 AST 22 ALT 8 L Alkaline Phosphatase 98 Total Protein 3.9 L Albumin 1.4 L Hospital Course: Patient is an 83 year old female with a prior medical history of diabetes, dementia, hypertension, CHF, hypothyroidism, history of coronary artery disease status post stent placement, and pacemaker placement. She was recently admitted and discharged from [facility] after treatment for UTI with ESBL Klebsiella. During the hospitalization the patient was admitted for acute encephalopathy which was thought to be due to to the UTI. She had encephalopathy during sepsis. However post discharge she continued to decline with increasing weakness and lethargy. Patient was admitted to hospitalist service on 09/25/2018 for mental status changes. Admission CAT scan was negative for any acute findings. Patient was placed on Invanz for recent ESBL E. coli UTI. Also patient was scheduled to get an MRI of the brain today for altered mental status workup. Today a.m. per Dr. Santana the patient was talking. Towards noon, stated that he witnessed his go into convulsions and became unresponsive. A halicat was called as the patient was unresponsive and hypotensive after the convulsion episode. Blood pressure was 66/40 obtunded not protecting airway. A stat ABG showed a pH of 7.13 PCO2 of 37 and base excess -15. Patient was emergently brought to the [facility] where I met her. Clearly was not protecting airway. Because of severe metabolic acidosis I gave 1 amp of bicarb and started Levophed to keep map above 65 prior to intubation. Wide open normal saline fluid boluses were also started. Intubated and placed the patient on mechanical ventilation. Following this I also placed a right subclavian central line. Discussed with ID Invanz discontinued due to possible seizures and Zosyn started. Stat EEG ordered 09/28: Patient remains very critical. She is unresponsive comatose not on any sedation. Currently on 9 mcg/min of Levophed to keep map above 65. Almost anuric. CBC CMP and lactic acid pending today. Prognosis appears very poor 09/29: This is a present discussion with family at bedside, 8TH GRADE TEACHER and hospice also present. Provided medical status update. Decision made by Mr. Rees and family to proceed with comfort care measures. All questions answered. 09/29: Comfort care measures initiated. With family and clergy at bedside the patient at 1725.
== END 2018-09-29 17:25 | disposition expired ==
LOC: NEPE 09:30 → NEDA 13:11 → HCIS 21:11 → HIMC 09-27 12:35
PROVIDERS: ADMIT Internal Medicine; ATTEND Internal Medicine